=== PATIENT | male | born 1965 | race Caucasian/White ===

== ENCOUNTER 2016-12-16 06:22 | Inpatient (IN) | payer OTHER, MEDICARE ==
[2016-12-16] VITALS (8 sets, daily range): BP systolic 100–130; BP diastolic 51–68; PULSE 80–90; RESP 18–25; TEMP 96–100.7; O2SAT 91–98
[~2016-12-16] VITALS: Ht 175.3 cm; Wt 147.2 kg
[~2016-12-16 06:22] MED LIST: DULO20 PO; IPRAAER IN
[2016-12-16] MEDS ORDERED: DEPA250T2 PO (06:34)
[2016-12-16] MEDS ORDERED: sleep med (06:34)
--- NOTE | 2016-12-16 06:51 | PD ---
HPI Chief Complaint: Pain: Acute or Chronic Time Seen by Provider: 06:46 Travel History International Travel<30 days: No Contact w/Intl Traveler<30days: No Traveled to known affect area: No History of Present Illness HPI 51-year-old male presents to the emergency department from home by EMS transport for complaint of generalized weakness and scrotal pain and swelling extending to the perineum and buttock. Patient states it's been progressively worsening 2 days. Patient states he's had issues with scrotal cysts for several months. Patient denies being diabetic. Patient has history of COPD and PTSD. Patient states he's had subjective fever and chills. Patient was noted by EMS to be hypotensive with his systolic blood pressure in the 90's. Patient rates pain as severe. Patient has had some spontaneous drainage from the scrotum. Patient's had no difficulties with urination. Patient also complains of left lower quadrant abdominal pain. Pain intensity is described as 10 over 10 PFSH Past Medical History Narrative Medical Anxiety depression PTSD COPD; no surgery; positive tobacco use positive alcohol use; nursing notes reviewed Asthma: No Blood Disorders: No Bipolar Disorder: Yes Anxiety: Yes Depression: Yes Cancer: No Cardiovascular Problems: No COPD: Yes Diminished Hearing: No Endocrine: No Gastrointestinal Disorders: No Genitourinary: No Immune Disorder: No Implanted Vascular Access Dvce: No Musculoskeletal: No Neurologic: No Psychiatric: Yes (PTSD) Reproductive: No Respiratory: Yes (COPD) Renal Failure: No Tetanus Vaccination: < 5 Years Influenza Vaccination: No Past Surgical History Surgical History: No Previous Surgery AICD: No Arteriovenous Shunt: No Insulin Pump: No Joint Replacement: No Neurologic Surgery: No Pacemaker: No Other Surgery: No Social History Alcohol Use: Yes (couple 4 packs a week) Tobacco Use: Yes (1/2 ppd cigarettes) Substance Use: No Allergies-Medications (Allergen,Severity, Reaction): Coded Allergies: No Known Allergies (Verified , 12/16/15) Reported Meds & Prescriptions Reported Meds & Active Scripts Active Reported [sleep med] Depakote DR (Divalproex Sodium) 250 Mg Tabdr 250 Mg PO HS Review of Systems Except as stated in HPI: all other systems reviewed are Neg General / Constitutional: Positive: Fever, Chills HENT: No: Congestion Cardiovascular: No: Chest Pain or Discomfort Respiratory: No: Shortness of Breath Gastrointestinal: Positive: Nausea, Abdominal Pain Genitourinary: Positive: Other, No: Dysuria Musculoskeletal: No: Myalgias Skin: Positive Lumps, No Rash Neurologic: No: Weakness Psychiatric: No: Anxiety Hematologic/Lymphatic: No: Lymph Node Enlargement Physical Exam Narrative GENERAL: Well-developed morbidly obese male in obvious discomfort with blood pressure 100/55. SKIN: Warm and dry. HEAD: Normocephalic. EYES: No scleral icterus. No injection or drainage. NECK: Supple, trachea midline. No JVD or lymphadenopathy. CARDIOVASCULAR: Regular rate and rhythm without murmurs, gallops, or rubs. RESPIRATORY: Breath sounds equal bilaterally. No accessory muscle use. GASTROINTESTINAL: Abdomen soft, non-tender, nondistended. uncircumcised male with scrotal edema erythema tenderness in duration and draining superficial ulceration with induration and erythema extending to the perineum without black eschar or necrotic tissue no crepitus. MUSCULOSKELETAL: No cyanosis, or edema. BACK: Nontender without obvious deformity. No CVA tenderness. Data Data Last Documented VS Vital Signs Date Time Temp Pulse Resp B/P Pulse Ox O2 Delivery O2 Flow Rate FiO2 12/16/16 06:23 98.3 87 22 100/55 97 Orders Basic Metabolic Panel (Bmp) (12/16/16 06:51) Complete Blood Count With Diff (12/16/16 06:51) Blood Culture (12/16/16 06:51) Wound Culture And Gram Stain (12/16/16 06:51) Iv Access Insert/Monitor (12/16/16 06:51) Sodium Chlor 0.9% 1000 Ml Inj (Ns 1000 M (12/16/16 07:00) Vancomycin Inj (Vancomycin Inj) (12/16/16 07:00) Piperacil-Tazo 4.5 Gm Premix (Zosyn 4.5 (12/16/16 07:00) Metronidazole 500 Mg Inj (Flagyl 500 Mg (12/16/16 07:00) Ondansetron Inj (Zofran Inj) (12/16/16 07:00) Morphine Inj (Morphine Inj) (12/16/16 07:00) Valproic Acid (Depakene) (12/16/16 06:51) MDM Medical Decision Making Medical Screen Exam Complete: Yes Emergency Medical Condition: Yes Medical Record Reviewed: Yes Differential Diagnosis Scrotal cellulitis, abscess, necrotizing fasciitis, mass, diverticulitis Narrative Course IV access obtained specimens collected and sent for resulting blood cultures obtained lactic acid ordered patient administered vancomycin and Zosyn and Flagyl Depakote level obtained. Patient given 1 L of normal saline along with Zosyn 4 mg IV and 2 mg morphine sulfate Care and disposition signed over to oncpolo Lopez. Simi Cheema MD Dec 16, 2016 06:51
[2016-12-16] MEDS ORDERED: ONDANSETRON HCL 4 MG/2 ML VIAL IV PUSH ONE (07:00)
[2016-12-16] MEDS ORDERED: metroNIDAZOLE 500 MG INJ 100 ML IV ONE (07:00)
[2016-12-16] MEDS ORDERED: PIPERACIL-TAZO 4.5 GM PREMIX 100 ML IV ONE (07:00)
[2016-12-16] MEDS ORDERED: SODIUM CHLOR 0.9% 1000 ML INJ 1,000 ML IV ONE (07:00)
[2016-12-16] MEDS ORDERED: VANCOMYCIN INJ 1,250 MG in SODIUM CHLOR 0.9% 250 ML INJ 250 ML IV ONE (07:00)
[2016-12-16] MEDS ORDERED: MORPHINE SULFATE 4 MG/ML INJ IV PUSH ONE (07:00)
[2016-12-16 07:26] LABS: AUTOMATED NEUTROPHIL # 22.9 TH/MM3 (1.8-7.7); BASOPHIL # 0.1 TH/MM3 (0-0.2); BASOPHIL % 0.2 % (0.0-2.0); EOSINOPHIL % 0.1 % (0.0-4.0); HEMATOCRIT 39.6 % (39.0-51.0); HEMO FLAGS DIFF FINAL; LYMPH % 3.3 % (9.0-44.0); LYMPHOCYTE # 0.8 TH/MM3 (1.0-4.8); MEAN CORPUSCULAR HEMOGLOBIN 30.4 PG (27.0-34.0); MEAN CORPUSCULAR HGB CONC 33.4 % (32.0-36.0); NEUT % 88.4 % (16.0-70.0); PLATELET COUNT 185 TH/MM3 (150-450); RED BLOOD COUNT 4.35 MIL/MM3 (4.50-5.90); RED CELL DISTRIBUTION WIDTH 14.5 % (11.6-17.2); WHITE BLOOD COUNT 25.9 TH/MM3 (4.0-11.0)
[2016-12-16 08:39] LABS: BICARBONATE 27.4 MEQ/L (21.0-32.0); POTASSIUM 3.7 MEQ/L (3.5-5.1)
--- NOTE | 2016-12-16 10:16 | HHI.HP ---
HPI Service [facility] Primary Care Physician Unknown Admission Diagnosis Diagnoses: Chief Complaint: Scrotal pain Travel History International Travel<30 Days: No Contact w/Intl Traveler <30 Da: No Traveled to Known Affected Are: No History of Present Illness This is a 51-year-old male with history of COPD, PTSD, depression, no other significant comorbidities presenting with scrotal pain. In retrospect, the patient has had what he refers as cysts between his scrotum and his rectum/anal verge for the last 10 months. Sometimes there will be a discharge described as yellowish which she would express. He has never seen a doctor or taken any antibiotics for this. However in the last 2 days, he has noticed that the "cysts"are now in his scrotum associated with severe pain, 8/10, scrotal redness , swelling, subjective fever with chills and sweats. There is no scrotal discharge. Patient denies any urinary symptoms including dysuria, frequency, urgency, diarrhea, shortness of breath, cough, nausea, vomiting, chest pain. Review of Systems ROS Limitations: Other (ROS negative.) Past Family Social History Past Medical History Anxiety Depression PTSD COPD Alcohol abuse Tobacco abuse Past Surgical History None Reported Medications Depakote DR (Divalproex Sodium) 250 Mg Tabdr 250 Mg PO HS Allergies: Coded Allergies: No Known Allergies (Verified , 12/16/15) Family History Brother has DM Social History 8 4-pack weekly of beer, smokes 1/2 ppd 37 years Physical Exam Vital Signs Vital Signs Date Time Temp Pulse Resp B/P Pulse Ox O2 Delivery O2 Flow Rate FiO2 12/16/16 09:01 83 24 119/68 94 Room Air 12/16/16 07:51 25 12/16/16 07:25 99.5 83 25 100/62 95 Room Air 12/16/16 06:23 98.3 87 22 100/55 97 Physical Exam Not in distress, morbidly obese. PERRL, pink conjunctiva without injection, anicteric Nose without bleeding, airway patent, oropharynx clear Supple neck, no masses or thyromegaly, trachea midline Normal rate and regular rhythm, no murmurs gallops or rubs appreciated. Decreased breath sounds due to body habitus. Normal bowel sounds, soft, obese, non-tender, nondistended, no guarding. : Scrotum is enlarged, about 4 times normal size, very swollen, with redness, very tender, no crepitations, palpable multiple doughy induration which are very tender, no fluctuance, no open wound or drainage. Extremities without clubbing, cyanosis, or edema. No rash of generalized distribution. Skin is warm and dry. AAO x3, no cranial nerve deficits, moves all 4 extremities, no focal neurologic deficits Normal mood, appropriate affect Laboratory Laboratory Tests Test 12/16/16 12/16/16 12/16/16 07:00 07:10 08:05 White Blood Count 25.9 Red Blood Count 4.35 Hemoglobin 13.2 Hematocrit 39.6 Mean Corpuscular Volume 91.0 Mean Corpuscular Hemoglobin 30.4 Mean Corpuscular Hemoglobin 33.4 Concent Red Cell Distribution Width 14.5 Platelet Count 185 Mean Platelet Volume 9.8 Neutrophils (%) (Auto) 88.4 Lymphocytes (%) (Auto) 3.3 Monocytes (%) (Auto) 8.0 Eosinophils (%) (Auto) 0.1 Basophils (%) (Auto) 0.2 Neutrophils # (Auto) 22.9 Lymphocytes # (Auto) 0.8 Monocytes # (Auto) 2.1 Eosinophils # (Auto) 0.0 Basophils # (Auto) 0.1 CBC Comment DIFF FINAL Differential Comment Lactic Acid Level 1.9 Sodium Level 141 Potassium Level 3.7 Chloride Level 108 Carbon Dioxide Level 27.4 Anion Gap 6 Blood Urea Nitrogen 12 Creatinine 1.06 Estimat Glomerular Filtration 74 Rate Random Glucose 85 Calcium Level 7.9 Valproic Acid (Depakene) Level 91 Date/Time Procedure Status Source Growth 12/16/16 07:05 Aerobic Blood Culture Received Blood Peripheral Pending 12/16/16 07:05 Anaerobic Blood Culture Received Blood Peripheral Pending Result Diagram: 12/16/16 0700 12/16/16 0805 Assessment and Plan Problem List: (1) COPD (chronic obstructive pulmonary disease) ICD Code: J44.9 Status: Chronic (2) Morbid obesity ICD Code: E66.01 Status: Chronic (3) Tobacco abuse ICD Code: Z72.0 Status: Chronic (4) Cellulitis of scrotum ICD Code: N49.2 Status: Acute Assessment and Plan This is a 51-year-old male presenting with scrotal pain and swelling with history of perineal abscesses Sepsis secondary to Scrotal cellulitis rule out abscess - sepsis based on fever and high-grade leukocytosis. Scrotum definite looks like infected, i.e. cellulitis, possibly with abscess based on palpation. No signs of systemic toxicity or Burt's gangrene. Check ultrasound of the scrotum, patient does not have any abdominal pain or urinary symptoms. Depending on the ultrasound results, might need urological consult for drainage. We'll start with vancomycin and Unasyn, pain control with Percocet and morphine intravenously as needed with bowel regimen. Start normal saline for volume resuscitation with mild hypotension. Blood culture drawn, follow-up results and no other obvious source of infection. Check hemoglobin A1c, urinalysis. Recheck CBC and BMP. Scrotal elevation. PTSD, depression-continue Depakote Tobacco abuse-counseled, start nicotine patch COPD-not in exacerbation, DuoNeb's as needed. DVT prophylaxis: Lovenox Code Status Full code Discussed Condition With Patient and RN Physician Certification 2 Midnight Certification Type: Admission for Inpatient Services Order for Inpatient Services The services are ordered in accordance with Medicare regulations or non- Medicare payer requirements, as applicable. In the case of services not specified as inpatient-only, they are appropriately provided as inpatient services in accordance with the 2-midnight benchmark. Estimated LOS (days): 2 days is the estimated time the patient will need to remain in the hospital, assuming treatment plan goals are met and no additional complications. Post-Hospital Plan: Home Liliana Veliz MD Dec 16, 2016 10:16
[2016-12-16] MEDS ORDERED: Vancomycin Consult Pharmacy 1 EA OTHER PRN (11:15)
[2016-12-16] MEDS ORDERED: MORPHINE SULFATE 4 MG/ML INJ IV PRN (11:15)
[2016-12-16] MEDS ORDERED: MAGNESIUM HYDROXIDE SUSP 30 ML CUP PO PRN (11:15)
[2016-12-16] MEDS ORDERED: RESP: ALBUTEROL 2.5 MG/IPRATROPIUM 0.5 MG NEB (PRN) NEB (11:15)
[2016-12-16] MEDS ORDERED: NALOXONE HCL 0.4 MG/ML AMP IV PRN (11:15)
[2016-12-16 11:29] LABS: BLOOD, URINE TRACE (NEG); GLUCOSE,URINE NEG (NEG); HYALINE CAST, URINE 5 /lpf (RARE); KETONE, URINE 10 mg/dL (NEG); MUCUS URINE FEW /lpf (OCC); NITRITE,URINE NEG (NEG); SQUAMOUS EPITHELIAL CELL URINE <1 /hpf (0-5); TRANSITIONAL EPI CELLS, URINE <1 /hpf; URINE COLOR YELLOW (YELLW/STRAW)
[2016-12-16 11:30] LABS: COMMENT (UR) CULT NOT INDICATED; CULTURE IF INDICATED CULT NOT INDICATED
--- NOTE | 2016-12-16 11:41 | PD ---
Data Data Last Documented VS Vital Signs Date Time Temp Pulse Resp B/P Pulse Ox O2 Delivery O2 Flow Rate FiO2 12/16/16 09:01 83 24 119/68 94 Room Air 12/16/16 07:25 99.5 Orders Basic Metabolic Panel (Bmp) (12/16/16 06:51) Complete Blood Count With Diff (12/16/16 06:51) Blood Culture (12/16/16 06:51) Wound Culture And Gram Stain (12/16/16 06:51) Iv Access Insert/Monitor (12/16/16 06:51) Sodium Chlor 0.9% 1000 Ml Inj (Ns 1000 M (12/16/16 07:00) Vancomycin Inj (Vancomycin Inj) (12/16/16 07:00) Piperacil-Tazo 4.5 Gm Premix (Zosyn 4.5 (12/16/16 07:00) Metronidazole 500 Mg Inj (Flagyl 500 Mg (12/16/16 07:00) Ondansetron Inj (Zofran Inj) (12/16/16 07:00) Morphine Inj (Morphine Inj) (12/16/16 07:00) Valproic Acid (Depakene) (12/16/16 06:51) Lactic Acid Sepsis Protocol (12/16/16 07:42) Admit To Inpatient (12/16/16 10:16) Code Status (12/16/16 10:16) Vital Signs (Adult) Q4H (12/16/16 10:16) Activity Bed Rest With Brp (12/16/16 10:16) [employer] Sales Representative / Telemetry .CONTINUOUS (12/16/16 10:16) Intake + Output SANGEETA.QSHIFT (12/16/16 10:16) Diet Regular Basic (12/16/16 Lunch) Basic Metabolic Panel (Bmp) (12/17/16 06:00) Complete Blood Count With Diff (12/17/16 06:00) Creatine Kinase (Cpk) (12/16/16 10:16) Urinalysis - C+S If Indicated (12/16/16 10:16) Scd Bilateral/Knee High SANGEETA.QSHIFT (12/16/16 10:16) Admit Order (Ed Use Only) (12/16/16 11:08) Vancomycin Consult Pharmacy (Vancomycin (12/16/16 11:15) Vancomycin Inj (Vancomycin Inj) (12/16/16 11:15) Acetaminophen (Tylenol) (12/16/16 11:15) Oxycodone (Roxicodone) (12/16/16 11:15) Oxycodone-Acetamin 5-325 Mg (Percocet (12/16/16 11:15) Morphine Inj (Morphine Inj) (12/16/16 11:15) Naloxone Inj (Narcan Inj) (12/16/16 11:15) Magnesium Hydroxide Liq (Milk Of Magnesi (12/16/16 11:15) Sennosides (Senokot) (12/16/16 11:15) ^ Scrotal Support (12/16/16 11:06) Us Testicles W Doppler (12/16/16 ) Sodium Chlor 0.9% 1000 Ml Inj (Ns 1000 M (12/16/16 11:15) Hemoglobin (Hgb) A1c (12/16/16 11:06) Labs Laboratory Tests Test 12/16/16 12/16/16 12/16/16 12/16/16 07:00 07:10 08:05 11:00 White Blood Count 25.9 TH/MM3 Red Blood Count 4.35 MIL/MM3 Hemoglobin 13.2 GM/DL Hematocrit 39.6 % Mean Corpuscular Volume 91.0 FL Mean Corpuscular Hemoglobin 30.4 PG Mean Corpuscular Hemoglobin 33.4 % Concent Red Cell Distribution Width 14.5 % Platelet Count 185 TH/MM3 Mean Platelet Volume 9.8 FL Neutrophils (%) (Auto) 88.4 % Lymphocytes (%) (Auto) 3.3 % Monocytes (%) (Auto) 8.0 % Eosinophils (%) (Auto) 0.1 % Basophils (%) (Auto) 0.2 % Neutrophils # (Auto) 22.9 TH/MM3 Lymphocytes # (Auto) 0.8 TH/MM3 Monocytes # (Auto) 2.1 TH/MM3 Eosinophils # (Auto) 0.0 TH/MM3 Basophils # (Auto) 0.1 TH/MM3 CBC Comment DIFF FINAL Differential Comment Lactic Acid Level 1.9 mmol/L Sodium Level 141 MEQ/L Potassium Level 3.7 MEQ/L Chloride Level 108 MEQ/L Carbon Dioxide Level 27.4 MEQ/L Anion Gap 6 MEQ/L Blood Urea Nitrogen 12 MG/DL Creatinine 1.06 MG/DL Estimat Glomerular Filtration 74 ML/MIN Rate Random Glucose 85 MG/DL Calcium Level 7.9 MG/DL Valproic Acid (Depakene) Level 91 MCG/ML Urine Color YELLOW Urine Turbidity HAZY Urine pH 6.0 Urine Specific [place] 1.039 Urine Protein 30 mg/dL Urine Glucose (UA) NEG mg/dL Urine Ketones 10 mg/dL Urine Occult Blood TRACE Urine Nitrite NEG Urine Bilirubin NEG Urine Urobilinogen 2.0 MG/DL Urine Leukocyte Esterase SMALL Urine RBC 3 /hpf Urine WBC 7 /hpf Urine Squamous Epithelial <1 /hpf Cells Urine Transitional Epithelial <1 /hpf Cells Urine Amorphous Sediment RARE Urine Hyaline Casts 5 /lpf Urine Mucus FEW /lpf Microscopic Urinalysis Comment CULT NOT INDICATED MDM Supervised Visit with [facility]: No Narrative Course This case is checked out to me by Dr. Cheeam. She did not feel this represented Fourniers gangrene or anything necrotizing. I have reviewed the entirety of the workup. He has significant leukocytosis of 25,000 but normal lactate and no fever. Other lab studies are reasonably normal He is a morbidly obese man with a scrotal cellulitis. I reviewed the case in detail with hospitalist will admit for IV antibiotics. He is going to order an ultrasound of the scrotum as well. Diagnosis Primary Impression: Cellulitis of scrotum Admitting Information Admitting Physician Requests: Admit Oh Lopez MD Dec 16, 2016 11:41
[2016-12-16] MEDS ORDERED: VANCOMYCIN INJ 1,000 MG in SODIUM CHLOR 0.9% 250 ML INJ 250 ML IV SCH (12:00)
[2016-12-16] MEDS: oxyCODONE/ACETAMINOPHEN 5 MG/325 MG TAB PO PRN (12:18)
[2016-12-16] MEDS: SODIUM CHLOR 0.9% 1000 ML INJ 1,000 ML IV SCH ×2 (12:18→20:41)
[2016-12-16] MEDS: ENOXAPARIN SODIUM 40 MG/0.4 ML SYRINGE SQ SCH (12:18)
[2016-12-16] MEDS: SENNOSIDES 8.6 MG TAB PO SCH ×2 (12:19→12:21)
[2016-12-16] MEDS: AMPICILLIN-SULBACTAM INJ 1,500 MG in SODIUM CHLORIDE 0.9% INJ 100 ML IV SCH ×2 (12:19→16:45)
--- NOTE | 2016-12-16 12:55 | RADRPT ---
EXAM DATE/TIME: 12/16/2016 11:53 [facility] COMPARISON: No previous studies available for comparison. INDICATIONS : Testicular pain. MEDICAL HISTORY : COPD. Dyspnea. PTSD. Bipolar disorder. Depression. Anxiety. Substance use. SURGICAL HISTORY : Carpel tunnel release. ENCOUNTER: Initial ACUITY: 2 days PAIN SCORE: 8/10 LOCATION: Bilateral scrotum. MEASUREMENTS: RIGHT TESTICLE: 3.4 x 2.5 x 2.1cm LEFT TESTICLE: 3.4 x 3.1 x 2.6cm FINDINGS: There is positive blood flow to both testicles. There is some complex fluid measuring up to 2.6 cm th at is contiguous with the lower portion of left testicle. No suspicious testicular masses are present . There is extensive edematous changes in the scrotum around the testicles. There is a 7 mm x 5 mm no dule in the left epididymis. Small bilateral varicoceles. No significant hydrocele. CONCLUSION: 1. Extensive scrotal wall thickening and edema. 2. Positive testicular blood flow bilaterally without suspicious solid testicular mass. 3. Complex fluid contiguous with the inferior portion of the left testicle measures 2.6 cm in diamete r. Small left-sided epididymal nodule. Small varicoceles bilaterally. Irving Payne MD on December 16, 2016 at 12:49 Board Certified Radiologist. This report was verified electronically.
[2016-12-16 13:22] LABS: HEMOGLOBIN A1a 1.6 %; HEMOGLOBIN Ao 83.9 %; HEMOGLOBIN LA1C 1.9 %; HEMOGLOBIN P3 4.1 %
[2016-12-16] MEDS: RESP: ALBUTEROL 2.5 MG/IPRATROPIUM 0.5 MG NEB (SCH) NEB (19:35)
[2016-12-16] MEDS: ACETAMINOPHEN 325 MG TAB PO PRN (20:40)
[2016-12-16] MEDS: VANCOMYCIN INJ 2,250 MG in SODIUM CHLORID 0.9% 500 ML INJ 500 ML IV SCH (20:41)
[2016-12-16] MEDS: DIVALPROEX SODIUM DELAYED RELEASE 250 MG TAB PO SCH (20:41)
[2016-12-17] VITALS: BP 100/59; PULSE 86; RESP 19; TEMP 100.7; O2SAT 93
[2016-12-17] MEDS: AMPICILLIN-SULBACTAM INJ 1,500 MG in SODIUM CHLORIDE 0.9% INJ 100 ML IV SCH ×5 (00:20→23:59)
[2016-12-17] MEDS ORDERED: IBUPROFEN 600 MG TAB PO ONE (00:45)
[2016-12-17] MEDS: FAMOTIDINE 20 MG TAB PO SCH ×3 (01:14→20:22)
[2016-12-17 04:00] VITALS: BP 102/57; PULSE 67; RESP 19; TEMP 98; O2SAT 94
[2016-12-17 05:59] LABS: HEMATOCRIT 36.1 % (39.0-51.0); MEAN CELL VOLUME 90.7 FL (80.0-100.0); MEAN CORPUSCULAR HEMOGLOBIN 30.6 PG (27.0-34.0); MEAN CORPUSCULAR HGB CONC 33.7 % (32.0-36.0); PLATELET COUNT 179 TH/MM3 (150-450); RED BLOOD COUNT 3.98 MIL/MM3 (4.50-5.90); RED CELL DISTRIBUTION WIDTH 14.7 % (11.6-17.2); WHITE BLOOD COUNT 26.7 TH/MM3 (4.0-11.0)
[2016-12-17 06:02] LABS: HEMO FLAGS AUTO DIFF
[2016-12-17 06:24] LABS: POTASSIUM 3.6 MEQ/L (3.5-5.1)
[2016-12-17 06:25] LABS: BICARBONATE 22.7 MEQ/L (21.0-32.0)
[2016-12-17 06:52] LABS: BANDS 9 % (0-6); METAMYELOCYTES 3 % (0-1); NEUTROPHIL # MANUAL DIFF 24.6 TH/MM3 (1.8-7.7); POLYS (SEG NEUTROPHILS) 80 % (16-70); WBC DIFF SAMPLE 100
[2016-12-17 06:53] LABS: SCAN/DIFF FINAL DIFF MANUAL
[2016-12-17] MEDS: RESP: ALBUTEROL 2.5 MG/IPRATROPIUM 0.5 MG NEB (SCH) NEB ×2 (07:42→20:00)
--- NOTE | 2016-12-17 07:58 | MB ---
cc: RONI WELLS MD DATE OF CONSULTATION 12/16/2016 REASON FOR CONSULTATION 1. Scrotal cellulitis. 2. Scrotal swelling. HISTORY OF PRESENT ILLNESS The patient is a 51-year-old male who presents with a 2-day history of scrotal pain and swelling. He denies dysuria, fevers, chills, nausea, vomiting or hematuria. He said he has over the past 10 months noticed cyst between his scrotum and rectum but recently found a cyst on his scrotum. He describes the pain as sharp and stabbing and it is worse. He also noticed some redness in the area. Denies any discharge from his scrotum. Denies prior episodes. Denies history of sexually transmitted disease. He denies diabetes, history of kidney stones or urinary tract infections. REVIEW OF SYSTEMS See HPI, otherwise all systems reviewed are otherwise negative. PAST HISTORY 1. Anxiety, depression. 2. PTSD. 3. COPD. 4. Alcohol abuse. 5. Tobacco abuse. PAST SURGICAL HISTORY None. REPORTED MEDICATIONS Depakote 250 mg p.o. q. H.s. ALLERGIES No known drug allergies. FAMILY HISTORY Denies urolithiasis or genitourinary malignancies. SOCIAL HISTORY Smokes half-pack per day for the last 37 years. 8/4 pack weekly of beer. Denies illicit drugs. PHYSICAL EXAMINATION VITAL SIGNS: Temperature 100.6, pulse 80, respiratory 22, BP 114/53, sating 95% on room air. GENERAL: He is alert and oriented x 3. In no apparent distress, cooperative gentleman. Appears his stated age. HEAD: Normocephalic, atraumatic. NECK: Supple. Trachea is midline. No JVD. SKIN: No ulcers or rashes visible. The mucous membranes are pink and moist. LUNGS: Nonlabored respirations. No wheezes, rales or rhonchi. HEART: Regular rate and rhythm. No murmurs, gallops or rubs. ABDOMEN: Obese but soft, nontender, nondistended. Positive bowel sounds. GENITOURINARY EXAMINATION: His penis is edematous. Glans not visible due to edematous foreskin. Scrotum - 2+ edema which is soft, slightly indurated, slightly erythematous but no crepitus or fluctuance noted. No evidence of any visible draining areas. Testes not palpable. EXTREMITIES: Nontender. No clubbing or cyanosis. 1+ bilateral pitting edema. PSYCH: Normal affect. NEUROLOGICAL: Cranial nerves II-XII intact. Strength 5/5 in all four extremities. LABS White count of 25.9, hemoglobin 13.2, hematocrit 39.6, platelet count 185. Sodium 141, potassium 3.7, chloride 108, bicarb 27.4, creatinine 1.06, BUN 12. His urine showed trace blood, small leukocyte esterase. IMAGING STUDIES His scrotal ultrasound images were reviewed. Agree with the radiologist's report. There is no evidence of a fluid collection. There is some fluid on the inferior portion of the left testicle with good blood flow to both testicles with extensive scrotal wall thickening and edema. ASSESSMENT AND PLAN The patient is a 51-year-old male admitted with scrotal pain and appears to have scrotal cellulitis. PLAN Recommend continued IV antibiotics for now. He is currently on vancomycin and Unasyn. We will follow his white count appropriately. If he is not improve in the next 24-48 hours, then recommend repeating the scrotal ultrasound to see if there is progression of a possible abscess. Otherwise hopefully IV antibiotics will help treat the scrotal cellulitis. Thank you for this consult. Roni Wells MD EMDavy/NIKI /6:31 PM /7:43 AM
[2016-12-17 08:00] VITALS: BP 110/54; PULSE 68; RESP 20; TEMP 96.8; O2SAT 96
--- NOTE | 2016-12-17 10:58 | HHI.PR ---
Subjective Remarks Follow-up sepsis/scrotal cellulitis and now bacteremia 12/17/16-patient seen and examined, still spiking fever and complains of scrotal pain. Blood culture positive for gram-negative rods and gram positive cocci Objective Vitals Vital Signs Date Time Temp Pulse Resp B/P Pulse Ox O2 Delivery O2 Flow Rate FiO2 12/17/16 08:00 96.8 68 20 110/54 96 12/17/16 04:00 98.0 67 19 102/57 94 12/17/16 00:00 100.7 86 19 100/59 93 12/16/16 20:00 100.7 90 20 109/53 91 12/16/16 16:31 100.6 80 22 114/53 95 12/16/16 16:31 100.6 80 22 114/53 95 12/16/16 13:52 96.0 82 24 122/51 93 12/16/16 12:59 86 20 130/60 96 12/16/16 11:47 81 18 98 Room Air I/O 12/16/16 12/16/16 12/16/16 12/17/16 12/17/16 12/17/16 07:00 15:00 23:00 07:00 15:00 23:00 Intake Total 120 ml 1218 ml 1084 ml Balance 120 ml 1218 ml 1084 ml Intake Oral 120 ml 240 ml 240 ml IV Total 978 ml 844 ml # Voids 2 2 # Bowel Movements 0 0 Result Diagram: 12/17/16 0547 12/17/16 0547 Imaging Last Impressions Scrotum Ultrasound 12/16/16 0000 Signed Impressions: Service Date/Time: Friday, December 16, 2016 11:53 - CONCLUSION: 1. Extensive scrotal wall thickening and edema. 2. Positive testicular blood flow bilaterally without suspicious solid testicular mass. 3. Complex fluid contiguous with the inferior portion of the left testicle measures 2.6 cm in diameter. Small left-sided epididymal nodule. Small varicoceles bilaterally. Irving Payne MD Objective Remarks GENERAL: NAD SKIN: Warm and dry. HEAD: Normocephalic. EYES: No scleral icterus. No injection or drainage. NECK: Supple, trachea midline. No JVD or lymphadenopathy. CARDIOVASCULAR: Regular rate and rhythm without murmurs, gallops, or rubs. RESPIRATORY: Breath sounds equal bilaterally. No accessory muscle use. GASTROINTESTINAL: Abdomen soft, non-tender, nondistended. MUSCULOSKELETAL: No cyanosis, or edema. : scrotal erythema, swelling BACK: Nontender without obvious deformity. No CVA tenderness. A/P Problem List: (1) Bacteremia due to Gram-positive bacteria ICD Code: R78.81 Status: Acute (2) Bacteremia due to Gram-negative bacteria ICD Code: R78.81 Status: Acute (3) Sepsis affecting skin ICD Code: A41.9 Status: Acute (4) Cellulitis of scrotum ICD Code: N49.2 Status: Acute (5) COPD (chronic obstructive pulmonary disease) ICD Code: J44.9 Status: Chronic (6) Morbid obesity ICD Code: E66.01 Status: Chronic (7) Tobacco abuse ICD Code: Z72.0 Status: Chronic Assessment and Plan 51-year-old man with Bacteremia due to gram-positive cocci and gram-negative dangelo Repeat blood culture Consult infectious disease specialist Continue with IV vancomycin and Unasyn Sepsis :2/2 scrotal cellulitis Currently on IV vancomycin and Unasyn Infectious disease specialist consultation pending Monitor culture report Scrotal cellulitis Appreciate input from urology Repeat scrotal ultrasound if no improvement in 24-48 hours Currently on IV antibiotics, parenteral pain medications Elevate scrotum Leukocytosis From above infectious processes Continue with therapy Monitor CBC PTSD, depression- continue Depakote Tobacco abuse-counseled, Continue nicotine patch COPD-not in exacerbation, DuoNeb's as needed. DVT prophylaxis: Emir Spears MD Dec 17, 2016 10:58
[2016-12-17] MEDS ORDERED: TEMAZEPAM 15 MG CAP PO PRN (11:00)
[2016-12-17] MEDS ORDERED: ONDANSETRON HCL 4 MG/2 ML VIAL IV PRN (11:00)
[2016-12-17] MEDS ORDERED: DOCUSATE SODIUM 50 MG/SENNA 8.6 MG TAB PO PRN (11:00)
[2016-12-17] MEDS: SENNOSIDES 8.6 MG TAB PO SCH ×3 (11:40→23:59)
[2016-12-17] MEDS: ENOXAPARIN SODIUM 40 MG/0.4 ML SYRINGE SQ SCH (11:41)
[2016-12-17 12:00] VITALS: BP 117/59; PULSE 71; RESP 21; TEMP 98.5; O2SAT 95
--- NOTE | 2016-12-17 15:06 | MB ---
cc: AUSTIN BHAT MD, ERIC DATE OF CONSULTATION: 12/17/[address] Andrews REASON FOR CONSULTATION A 51-year-old man admitted with scrotal cellulitis and now with bacteremia. Please evaluate and advise on therapy. HISTORY OF PRESENT ILLNESS This is a 51-year-old white male who presented to the emergency department with pain and swelling of the scrotum. The patient was evaluated in the emergency department on . He described pain of 10/10 in the scrotum. He also noted that he was having fever and chills. The patient states that he had an area of swelling at the scrotum between the scrotum and penis and he would squeeze it and some clear liquid would come out. He states that was present for approximately 4 months. He states that he was embarrassed to go to the medical doctor for a check-up for that problem. He was evaluated in the emergency department and he was afebrile. An ultrasound of the scrotum was performed and it showed extensive scrotal wall thickening and edema. Complex fluid contiguous with the inferior portion of the left testicle measuring 2.6 cm in diameter was noted. The patient was evaluated by urology and he was started on IV antibiotics. The urologist's recommendation was to follow the patient on IV antibiotics for the next 24-48 hours. Cultures were taken on admission and all four bottles have bacteria. One set has gram-positive cocci in both bottles and another set has gram-negative dangelo and gram-positive cocci. The patient is in no acute distress. His white count was 25.9 on presentation. This consultation is requested for infection management. PAST MEDICAL HISTORY 1. COPD. 2. Post-traumatic stress disorder. 3. Anxiety. ALLERGIES No known drug allergies. MEDICATIONS 1. Vancomycin. 2. Ampicillin/sulbactam. 3. Lovenox. 4. Senokot. 5. Percocet 5, p.r.n. SOCIAL HISTORY The patient smokes a pack of cigarettes a day. Positive alcohol in the form of beer. No illicit drugs. FAMILY HISTORY One brother has diabetes mellitus. REVIEW OF SYSTEMS CONSTITUTIONAL: Significant for fever and chills. HEAD, EYES, EARS, NOSE, AND THROAT: No visual blurring or diplopia. No difficulty swallowing. No soreness of the throat. NECK: No neck pain or swelling. CARDIOVASCULAR: No palpitation or chest pain. RESPIRATORY: No cough. Denies shortness of breath. GASTROINTESTINAL: Denies nausea, vomiting, abdominal pain or diarrhea. GENITOURINARY: Denies urgency, frequency or dysuria. Pain and swelling of the scrotum. HEMATOPOIETIC: No easy bruising or bleeding. INTEGUMENTARY: No skin rash or itching. ENDOCRINE: No polyuria or polydipsia. NEUROLOGIC: No problems with coordination or gait disturbance. PSYCHIATRIC: Significant for depression. PHYSICAL EXAMINATION GENERAL: This is a morbidly obese male who is in no acute distress. The patient appears to have some labored respirations. VITAL SIGNS: Temperature 98.5, BP 117/59, respirations 21, heart rate 79. T-max 100.7 earlier today. HEENT: Extraocular movements grossly intact, pupils reactive to light. No icterus. Oropharynx has no visible lesions. NECK: Supple without adenopathy. LUNGS: Diminished breath sounds throughout. HEART: Regular rate and rhythm without murmurs, rubs or gallops. ABDOMEN: Bowel sounds present. Obese. Soft. No tenderness appreciated. : Marked scrotal swelling. The scrotum is about the size of a large grapefruit. It is erythematous, tender and warm. There is a tiny superficial ulcerated area approximately 1 mm to 2 mm in circumference at the wall of the scrotum. RECTAL: Not performed. EXTREMITIES: No clubbing, cyanosis or edema. SKIN: No rash. NEUROLOGIC: No gross focal findings. LABORATORY WBC 26.7, platelets 179, 80% neutrophils, 9% bands, 5% lymphocytes, hemoglobin 12.2. Creatinine 0.8, BUN 17, sodium 138. IMPRESSION 1. Bacteremia. 2. Scrotal cellulitis. 3. Leukocytosis secondary to infection. RECOMMENDATIONS 1. Continue vancomycin. 2. Continue ampicillin/sulbactam. 3. Monitor blood culture and sensitivity and identity. 4. Monitor white blood cell count. 5. Follow-up recommendation by urology for need of surgical intervention. 6. Monitor clinical response to antibiotic treatment. Thank you this consultation. The patient's progress will be monitored and further recommendations will be given on follow-up if necessary. Austin Bhat MD FD/KIRIT /2:36 PM /2:55 PM
[2016-12-17 16:00] VITALS: BP 133/63; PULSE 84; RESP 24; TEMP 98; O2SAT 97
[2016-12-17 20:13] VITALS: BP 158/77; PULSE 84; RESP 21; TEMP 99.9; O2SAT 94
[2016-12-17] MEDS: VANCOMYCIN INJ 2,250 MG in SODIUM CHLORID 0.9% 500 ML INJ 500 ML IV SCH (20:21)
[2016-12-17] MEDS: DIVALPROEX SODIUM DELAYED RELEASE 250 MG TAB PO SCH (20:22)
[2016-12-18 00:14] VITALS: BP 132/60; PULSE 89; RESP 20; TEMP 97.5; O2SAT 96
[2016-12-18] MEDS: AMPICILLIN-SULBACTAM INJ 1,500 MG in SODIUM CHLORIDE 0.9% INJ 100 ML IV SCH ×2 (05:03→11:16)
[2016-12-18 05:04] LABS: AUTOMATED NEUTROPHIL # 21.9 TH/MM3 (1.8-7.7); BASOPHIL # 0.1 TH/MM3 (0-0.2); BASOPHIL % 0.2 % (0.0-2.0); HEMATOCRIT 34.8 % (39.0-51.0); HEMO FLAGS DIFF FINAL; LYMPH % 5.9 % (9.0-44.0); LYMPHOCYTE # 1.5 TH/MM3 (1.0-4.8); MEAN CORPUSCULAR HEMOGLOBIN 29.6 PG (27.0-34.0); MEAN CORPUSCULAR HGB CONC 32.5 % (32.0-36.0); MONO % 7.6 % (0.0-8.0); NEUT % 86.3 % (16.0-70.0); PLATELET COUNT 151 TH/MM3 (150-450); RED BLOOD COUNT 3.83 MIL/MM3 (4.50-5.90); RED CELL DISTRIBUTION WIDTH 14.7 % (11.6-17.2); WHITE BLOOD COUNT 25.4 TH/MM3 (4.0-11.0)
[2016-12-18] MEDS: ACETAMINOPHEN 325 MG TAB PO PRN (07:59)
[2016-12-18 08:00] VITALS: BP 115/55; PULSE 80; RESP 19; TEMP 102; O2SAT 93
[2016-12-18] MEDS: RESP: ALBUTEROL 2.5 MG/IPRATROPIUM 0.5 MG NEB (SCH) NEB ×2 (08:00→19:26)
[2016-12-18] MEDS: FAMOTIDINE 20 MG TAB PO SCH ×2 (08:00→19:47)
[2016-12-18 09:40] VITALS: TEMP 99
--- NOTE | 2016-12-18 10:08 | HHI.PR ---
Subjective Remarks Follow-up sepsis/scrotal cellulitis and now bacteremia 12/17/16-patient seen and examined, still spiking fever and complains of scrotal pain. Blood culture positive for gram-negative rods and gram positive cocci 12/18/16-patient seen and examined, Tmax 102 maternal and reports some improvement of scrotal pain. Repeat blood culture negative to date Objective Vitals Vital Signs Date Time Temp Pulse Resp B/P Pulse Ox O2 Delivery O2 Flow Rate FiO2 12/18/16 08:00 102.0 80 19 115/55 93 12/18/16 00:14 97.5 89 20 132/60 96 12/17/16 20:13 99.9 84 21 158/77 94 12/17/16 16:00 98.0 84 24 133/63 97 12/17/16 12:00 98.5 71 21 117/59 95 I/O 12/17/16 12/17/16 12/17/16 12/18/16 12/18/16 12/18/16 07:00 15:00 23:00 07:00 15:00 23:00 Intake Total 1084 ml 860 ml 380 ml Output Total 400 ml Balance 1084 ml 460 ml 380 ml Intake Oral 240 ml 860 ml 380 ml IV Total 844 ml Output Urine Total 400 ml # Voids 2 2 # Bowel Movements 0 Result Diagram: 12/18/16 0435 12/17/16 0547 Imaging Last Impressions Scrotum Ultrasound 12/16/16 0000 Signed Impressions: Service Date/Time: Friday, December 16, 2016 11:53 - CONCLUSION: 1. Extensive scrotal wall thickening and edema. 2. Positive testicular blood flow bilaterally without suspicious solid testicular mass. 3. Complex fluid contiguous with the inferior portion of the left testicle measures 2.6 cm in diameter. Small left-sided epididymal nodule. Small varicoceles bilaterally. Irving Payne MD Objective Remarks GENERAL: NAD SKIN: Warm and dry. HEAD: Normocephalic. EYES: No scleral icterus. No injection or drainage. NECK: Supple, trachea midline. No JVD or lymphadenopathy. CARDIOVASCULAR: Regular rate and rhythm without murmurs, gallops, or rubs. RESPIRATORY: Breath sounds equal bilaterally. No accessory muscle use. GASTROINTESTINAL: Abdomen soft, non-tender, nondistended. MUSCULOSKELETAL: No cyanosis, or edema. : scrotal erythema, swelling BACK: Nontender without obvious deformity. No CVA tenderness. A/P Problem List: (1) Bacteremia due to Gram-positive bacteria ICD Code: R78.81 Status: Acute (2) Bacteremia due to Gram-negative bacteria ICD Code: R78.81 Status: Acute (3) Sepsis affecting skin ICD Code: A41.9 Status: Acute (4) Cellulitis of scrotum ICD Code: N49.2 Status: Acute (5) COPD (chronic obstructive pulmonary disease) ICD Code: J44.9 Status: Chronic (6) Morbid obesity ICD Code: E66.01 Status: Chronic (7) Tobacco abuse ICD Code: Z72.0 Status: Chronic Assessment and Plan 51-year-old man with Bacteremia due to gram-positive cocci and gram-negative dangelo Repeat blood culture NTD Appreciate input from infectious disease specialist Continue with IV vancomycin and Unasyn Sepsis :2/2 scrotal cellulitis Currently on IV vancomycin and Unasyn Infectious disease specialist input appreciated Monitor culture report Scrotal cellulitis Appreciate input from urology Repeat scrotal ultrasound if no improvement in 24 hours Currently on IV antibiotics, parenteral pain medications Elevate scrotum Leukocytosis From above infectious processes Continue with therapy Monitor CBC PTSD, depression- continue Depakote Tobacco abuse-counseled, Continue nicotine patch COPD-not in exacerbation, DuoNeb's as needed. DVT prophylaxis: Emir Spears MD Dec 18, 2016 10:08
[2016-12-18] MEDS: SENNOSIDES 8.6 MG TAB PO SCH ×2 (11:16→23:25)
[2016-12-18 12:00] VITALS: BP 131/87; PULSE 87; RESP 18; TEMP 98.1; O2SAT 98
--- NOTE | 2016-12-18 13:00 | HHI.IDPN ---
Note Infectious Disease Note Patient feels no better. Notes pain in scrotum. Has flat affect. Denies chills. Afebrile. PAST MEDICAL HISTORY 1. COPD. 2. Post-traumatic stress disorder. 3. Anxiety. ALLERGIES No known drug allergies. ANTIBIOTICS: 1. Vancomycin. 2. Ampicillin/sulbactam. SOCIAL HISTORY The patient smokes a pack of cigarettes a day. Positive alcohol in the form of beer. No illicit drugs. FAMILY HISTORY One brother has diabetes mellitus. OBJECTIVE: Vital Signs Date Time Temp Pulse Resp B/P Pulse Ox O2 Delivery O2 Flow Rate FiO2 12/18/16 12:00 98.1 87 18 131/87 98 12/18/16 09:40 99.0 12/18/16 08:00 102.0 80 19 115/55 93 12/18/16 00:14 97.5 89 20 132/60 96 12/17/16 20:13 99.9 84 21 158/77 94 12/17/16 16:00 98.0 84 24 133/63 97 12/17/16 12/17/16 12/18/16 15:00 23:00 07:00 Intake Total 860 ml 380 ml Output Total 400 ml Balance 460 ml 380 ml Intake Oral 860 ml 380 ml Output Urine Total 400 ml # Voids 2 Laboratory Tests Test 12/17/16 12/18/16 05:47 04:35 White Blood Count 26.7 TH/MM3 25.4 TH/MM3 Red Blood Count 3.98 MIL/MM3 3.83 MIL/MM3 Hemoglobin 12.2 GM/DL 11.3 GM/DL Hematocrit 36.1 % 34.8 % Mean Corpuscular Volume 90.7 FL 91.0 FL Mean Corpuscular Hemoglobin 30.6 PG 29.6 PG Mean Corpuscular Hemoglobin 33.7 % 32.5 % Concent Red Cell Distribution Width 14.7 % 14.7 % Platelet Count 179 TH/MM3 151 TH/MM3 Mean Platelet Volume 9.2 FL 9.6 FL Neutrophils (%) (Auto) % 86.3 % Lymphocytes (%) (Auto) % 5.9 % Monocytes (%) (Auto) % 7.6 % Eosinophils (%) (Auto) % 0.0 % Basophils (%) (Auto) % 0.2 % Neutrophils # (Auto) TH/MM3 21.9 TH/MM3 Lymphocytes # (Auto) TH/MM3 1.5 TH/MM3 Monocytes # (Auto) TH/MM3 1.9 TH/MM3 Eosinophils # (Auto) TH/MM3 0.0 TH/MM3 Basophils # (Auto) TH/MM3 0.1 TH/MM3 CBC Comment AUTO DIFF DIFF FINAL Differential Total Cells 100 Counted Neutrophils % (Manual) 80 % Band Neutrophils % 9 % Lymphocytes % 5 % Monocytes % 3 % Neutrophils # (Manual) 24.6 TH/MM3 Metamyelocytes 3 % Differential Comment FINAL DIFF MANUAL Laboratory Tests Test 12/17/16 05:47 Sodium Level 138 MEQ/L Potassium Level 3.6 MEQ/L Chloride Level 106 MEQ/L Carbon Dioxide Level 22.7 MEQ/L Anion Gap 9 MEQ/L Blood Urea Nitrogen 17 MG/DL Creatinine 0.83 MG/DL Estimat Glomerular Filtration 98 ML/MIN Rate Random Glucose 94 MG/DL Calcium Level 7.8 MG/DL Microbiology Date/Time Procedure Status Source Growth 12/16/16 07:00 Aerobic Blood Culture - Preliminary Resulted Blood Peripheral Gram Negative Yovany Staphylococcus Species 12/16/16 07:00 Anaerobic Blood Culture - Preliminary Resulted Gram Negative Yovany Staphylococcus Species 12/16/16 07:05 Aerobic Blood Culture - Preliminary Resulted Blood Peripheral Staph Sp Coagulase Negative 12/16/16 07:05 Anaerobic Blood Culture - Preliminary Resulted Staphylococcus Species 12/17/16 11:57 Aerobic Blood Culture - Preliminary Resulted Blood Peripheral NO GROWTH IN 1 DAY 12/17/16 11:57 Anaerobic Blood Culture - Preliminary Resulted Blood Peripheral NO GROWTH IN 1 DAY 12/17/16 12:06 Aerobic Blood Culture - Preliminary Resulted Blood Peripheral NO GROWTH IN 1 DAY 12/17/16 12:06 Anaerobic Blood Culture - Preliminary Resulted Blood Peripheral NO GROWTH IN 1 DAY IMAGING: Scrotum Ultrasound 12/16/16 0000 Signed Impressions: Service Date/Time: Friday, December 16, 2016 11:53 - CONCLUSION: 1. Extensive scrotal wall thickening and edema. 2. Positive testicular blood flow bilaterally without suspicious solid testicular mass. 3. Complex fluid contiguous with the inferior portion of the left testicle measures 2.6 cm in diameter. Small left-sided epididymal nodule. Small varicoceles bilaterally. Irving Payne MD PHYSICAL EXAMINATION GENERAL: No acute distress. HEENT: Extraocular movements grossly intact, pupils reactive to light. No icterus. Oropharynx has no visible lesions. NECK: Supple without adenopathy. LUNGS: Diminished breath sounds. HEART: Regular rate and rhythm without murmurs, rubs or gallops. : Marked scrotal swelling unchanged. The scrotum is about the size of a large grapefruit. It is erythematous, tender and warm. There is a tiny superficial ulcerated area approximately 1 mm to 2 mm in circumference at the surface of the scrotum. EXTREMITIES: No clubbing, cyanosis or edema. SKIN: No rash. NEUROLOGIC: No gross focal findings. IMPRESSION 1. Bacteremia. Staph and gram negative yovany. 2. Scrotal cellulitis. 3. Leukocytosis secondary to infection. RECOMMENDATIONS 1. Continue vancomycin. 2. Change Unasyn to PIP/Tazo. 3. Monitor blood culture and sensitivity and identity. 4. Monitor white blood cell count. 5. Monitor clinical response to antibiotic treatment. Austin Heaton MD Dec 18, 2016 13:00
[2016-12-18] MEDS: ENOXAPARIN SODIUM 40 MG/0.4 ML SYRINGE SQ SCH (13:36)
[2016-12-18] MEDS: VANCOMYCIN INJ 2,250 MG in SODIUM CHLORID 0.9% 500 ML INJ 500 ML IV SCH ×2 (13:38→23:43)
--- NOTE | 2016-12-18 13:57 | RADRPT ---
EXAM DATE/TIME: 12/18/2016 12:50 [facility] COMPARISON: US TESTICLE W/DOPPLER, December 16, 2016, 11:53. INDICATIONS : Follow up for scrotal edema. MEDICAL HISTORY : Chronic obstructive pulmonary disease. Bipolar disorder. Depression. Anxiety. SURGICAL HISTORY : Carpal tunnel repair. ENCOUNTER: Subsequent ACUITY: 4 - 6 days PAIN SCORE: 8/10 LOCATION: Bilateral scrotum. MEASUREMENTS: RIGHT TESTICLE: 3.2 x 2.6 x 2.4cm LEFT TESTICLE: 4.1 x 2.9 x 2.3cm FINDINGS: No testicular masses are identified. There is positive testicular flow. Right epididymis is within no rmal limits. There is a 6 mm x 9 mm solid lesion in the left epididymal region. Small bilateral varic oceles, left greater than right. Trace left hydrocele. Severe scrotal edema persists. Previously iden tified complex fluid inferior to the left testicle is similar in appearance to prior exam. CONCLUSION: 1. No solid testicular masses. Positive testicular blood flow. Small varicoceles and left hydrocele. 2. Severe scrotal wall edema similar to prior exam. Irving Payne MD on December 18, 2016 at 13:50 Board Certified Radiologist. This report was verified electronically.
[2016-12-18] MEDS ORDERED: PIPERACIL-TAZO 4.5 GM PREMIX 100 ML IV SCH (14:00)
[2016-12-18 16:00] VITALS: BP 135/63; PULSE 80; RESP 20; TEMP 99; O2SAT 95
[2016-12-18] MEDS: PIPERACIL-TAZO 4.5 GM PREMIX 100 ML IV SCH ×2 (16:00→19:53)
[2016-12-18] MEDS: DIVALPROEX SODIUM DELAYED RELEASE 250 MG TAB PO SCH (19:47)
[2016-12-18 20:12] VITALS: BP 134/69; PULSE 80; RESP 18; TEMP 99.7; O2SAT 95
[2016-12-19 00:05] VITALS: BP 127/64; PULSE 77; RESP 21; TEMP 97.5; O2SAT 94
[2016-12-19] MEDS: guaiFENesin/DEXTROMETHORPHAN 200 MG/20 MG/10 ML CUP PO PRN ×3 (02:07→21:45)
[2016-12-19] MEDS: PIPERACIL-TAZO 4.5 GM PREMIX 100 ML IV SCH ×4 (02:07→21:22)
[2016-12-19 06:46] LABS: AUTOMATED NEUTROPHIL # 14.6 TH/MM3 (1.8-7.7); BASOPHIL # 0.1 TH/MM3 (0-0.2); BASOPHIL % 0.4 % (0.0-2.0); EOSINOPHIL % 0.2 % (0.0-4.0); HEMATOCRIT 33.7 % (39.0-51.0); LYMPH % 8.7 % (9.0-44.0); LYMPHOCYTE # 1.6 TH/MM3 (1.0-4.8); MEAN CELL VOLUME 91.3 FL (80.0-100.0); MEAN CORPUSCULAR HEMOGLOBIN 29.7 PG (27.0-34.0); MEAN CORPUSCULAR HGB CONC 32.6 % (32.0-36.0); MONO % 10.8 % (0.0-8.0); NEUT % 79.9 % (16.0-70.0); PLATELET COUNT 175 TH/MM3 (150-450); RED CELL DISTRIBUTION WIDTH 14.8 % (11.6-17.2); WHITE BLOOD COUNT 18.3 TH/MM3 (4.0-11.0)
[2016-12-19 06:57] LABS: HEMO FLAGS AUTO DIFF
[2016-12-19] MEDS: FAMOTIDINE 20 MG TAB PO SCH ×2 (07:15→21:21)
[2016-12-19] MEDS: ACETAMINOPHEN 325 MG TAB PO PRN ×2 (07:24→15:44)
[2016-12-19] MEDS: RESP: ALBUTEROL 2.5 MG/IPRATROPIUM 0.5 MG NEB (SCH) NEB ×2 (08:00→20:00)
[2016-12-19 08:55] LABS: SCAN/DIFF AUTO DIFF CONFIRMED
--- NOTE | 2016-12-19 11:25 | HHI.PR ---
Subjective Remarks Follow-up sepsis/scrotal cellulitis and now bacteremia 12/17/16-patient seen and examined, still spiking fever and complains of scrotal pain. Blood culture positive for gram-negative rods and gram positive cocci 12/18/16-patient seen and examined, Tmax 102 maternal and reports some improvement of scrotal pain. Repeat blood culture negative to date 12/19/16-patient seen and examined, Tmax 99.8 at 8 PM however currently afebrile and complains of more testicular swelling. States he is disappointed because he seen no change in his current treatment. WBC trending down and patient is currently on both vancomycin and Zosyn, Unasyn was discontinued yesterday Objective Vitals Vital Signs Date Time Temp Pulse Resp B/P Pulse Ox O2 Delivery O2 Flow Rate FiO2 12/19/16 08:16 18 12/19/16 08:16 18 12/19/16 00:05 97.5 77 21 127/64 94 12/18/16 20:12 99.7 80 18 134/69 95 12/18/16 16:00 99.0 80 20 135/63 95 12/18/16 12:00 98.1 87 18 131/87 98 I/O 12/18/16 12/18/16 12/18/16 12/19/16 12/19/16 12/19/16 07:00 15:00 23:00 07:00 15:00 23:00 Intake Total 380 ml 375 ml 1215 ml 1181 ml Balance 380 ml 375 ml 1215 ml 1181 ml Intake Oral 380 ml 375 ml 480 ml 480 ml IV Total 735 ml 701 ml # Voids 2 5 3 3 # Bowel Movements 4 1 1 Result Diagram: 12/19/16 0547 12/17/16 0547 Imaging Last Impressions Scrotum Ultrasound 12/18/16 0000 Signed Impressions: Service Date/Time: Sunday, December 18, 2016 12:50 - CONCLUSION: 1. No solid testicular masses. Positive testicular blood flow. Small varicoceles and left hydrocele. 2. Severe scrotal wall edema similar to prior exam. Irving Payne MD Objective Remarks GENERAL: NAD SKIN: Warm and dry. HEAD: Normocephalic. EYES: No scleral icterus. No injection or drainage. NECK: Supple, trachea midline. No JVD or lymphadenopathy. CARDIOVASCULAR: Regular rate and rhythm without murmurs, gallops, or rubs. RESPIRATORY: Breath sounds equal bilaterally. No accessory muscle use. GASTROINTESTINAL: Abdomen soft, non-tender, nondistended. MUSCULOSKELETAL: No cyanosis, or edema. : scrotal erythema, swelling BACK: Nontender without obvious deformity. No CVA tenderness. A/P Problem List: (1) Bacteremia due to Gram-positive bacteria ICD Code: R78.81 Status: Acute (2) Bacteremia due to Gram-negative bacteria ICD Code: R78.81 Status: Acute (3) Sepsis affecting skin ICD Code: A41.9 Status: Acute (4) Cellulitis of scrotum ICD Code: N49.2 Status: Acute (5) COPD (chronic obstructive pulmonary disease) ICD Code: J44.9 Status: Chronic (6) Morbid obesity ICD Code: E66.01 Status: Chronic (7) Tobacco abuse ICD Code: Z72.0 Status: Chronic Assessment and Plan 51-year-old man with Bacteremia due to gram-positive cocci and gram-negative dangelo Repeat blood culture NTD 2 days Appreciate input from infectious disease specialist Continue with IV vancomycin and Zosyn Sepsis :2/2 scrotal cellulitis Currently on IV vancomycin and Zosyn Infectious disease specialist input appreciated Monitor culture report Scrotal cellulitis Appreciate input from urology Repeat scrotal ultrasound 12/18/16 noted a review by me Currently on IV antibiotics, parenteral pain medications Elevate scrotum Leukocytosis Trending down From above infectious processes Continue with therapy Monitor CBC PTSD, depression- continue Depakote Tobacco abuse-counseled, Continue nicotine patch COPD-not in exacerbation, DuoNeb's as needed. DVT prophylaxis: Emir Spears MD Dec 19, 2016 11:25
[2016-12-19 12:00] VITALS: BP 107/55; PULSE 63; RESP 17; TEMP 98.3; O2SAT 96
[2016-12-19] MEDS: SENNOSIDES 8.6 MG TAB PO SCH (12:00)
--- NOTE | 2016-12-19 12:21 | HHI.IDPN ---
Note Infectious Disease Note Patient feels no better. Notes pain in scrotum. RN reports he has to be asked about pain since he does not request pain meds. Has flat affect. Denies chills. Afebrile. PAST MEDICAL HISTORY 1. COPD. 2. Post-traumatic stress disorder. 3. Anxiety. ALLERGIES No known drug allergies. ANTIBIOTICS: 1. Vancomycin. 2. Piperacillin/Tazobactam OBJECTIVE: Vital Signs Date Time Temp Pulse Resp B/P Pulse Ox O2 Delivery O2 Flow Rate FiO2 12/19/16 08:16 18 12/19/16 08:16 18 12/19/16 00:05 97.5 77 21 127/64 94 12/18/16 20:12 99.7 80 18 134/69 95 12/18/16 16:00 99.0 80 20 135/63 95 12/18/16 12/18/16 12/19/16 15:00 23:00 07:00 Intake Total 375 ml 1215 ml 1181 ml Balance 375 ml 1215 ml 1181 ml Intake Oral 375 ml 480 ml 480 ml IV Total 735 ml 701 ml # Voids 5 3 3 # Bowel Movements 4 1 1 Laboratory Tests Test 12/18/16 12/19/16 04:35 05:47 White Blood Count 25.4 TH/MM3 18.3 TH/MM3 Red Blood Count 3.83 MIL/MM3 3.70 MIL/MM3 Hemoglobin 11.3 GM/DL 11.0 GM/DL Hematocrit 34.8 % 33.7 % Mean Corpuscular Volume 91.0 FL 91.3 FL Mean Corpuscular Hemoglobin 29.6 PG 29.7 PG Mean Corpuscular Hemoglobin 32.5 % 32.6 % Concent Red Cell Distribution Width 14.7 % 14.8 % Platelet Count 151 TH/MM3 175 TH/MM3 Mean Platelet Volume 9.6 FL 9.9 FL Neutrophils (%) (Auto) 86.3 % 79.9 % Lymphocytes (%) (Auto) 5.9 % 8.7 % Monocytes (%) (Auto) 7.6 % 10.8 % Eosinophils (%) (Auto) 0.0 % 0.2 % Basophils (%) (Auto) 0.2 % 0.4 % Neutrophils # (Auto) 21.9 TH/MM3 14.6 TH/MM3 Lymphocytes # (Auto) 1.5 TH/MM3 1.6 TH/MM3 Monocytes # (Auto) 1.9 TH/MM3 2.0 TH/MM3 Eosinophils # (Auto) 0.0 TH/MM3 0.0 TH/MM3 Basophils # (Auto) 0.1 TH/MM3 0.1 TH/MM3 CBC Comment DIFF FINAL AUTO DIFF Differential Comment AUTO DIFF CONFIRMED Microbiology Date/Time Procedure Status Source Growth 12/17/16 11:57 Aerobic Blood Culture - Preliminary Resulted Blood Peripheral NO GROWTH IN 2 DAYS 12/17/16 11:57 Anaerobic Blood Culture - Preliminary Resulted Blood Peripheral NO GROWTH IN 2 DAYS 12/17/16 12:06 Aerobic Blood Culture - Preliminary Resulted Blood Peripheral NO GROWTH IN 2 DAYS 12/17/16 12:06 Anaerobic Blood Culture - Preliminary Resulted Blood Peripheral NO GROWTH IN 2 DAYS Microbiology Date/Time Procedure Status Source Growth 12/16/16 07:00 Aerobic Blood Culture - Preliminary Resulted Blood Peripheral Gram Negative Yovany Staphylococcus Species 12/16/16 07:00 Anaerobic Blood Culture - Preliminary Resulted Gram Negative Yovany Staphylococcus Species 12/16/16 07:05 Aerobic Blood Culture - Preliminary Resulted Blood Peripheral Staph Sp Coagulase Negative 12/16/16 07:05 Anaerobic Blood Culture - Preliminary Resulted Staphylococcus Species 12/17/16 11:57 Aerobic Blood Culture - Preliminary Resulted Blood Peripheral NO GROWTH IN 1 DAY 12/17/16 11:57 Anaerobic Blood Culture - Preliminary Resulted Blood Peripheral NO GROWTH IN 1 DAY 12/17/16 12:06 Aerobic Blood Culture - Preliminary Resulted Blood Peripheral NO GROWTH IN 1 DAY 12/17/16 12:06 Anaerobic Blood Culture - Preliminary Resulted Blood Peripheral NO GROWTH IN 1 DAY IMAGING: Scrotum Ultrasound 12/16/16 0000 Signed Impressions: Service Date/Time: Friday, December 16, 2016 11:53 - CONCLUSION: 1. Extensive scrotal wall thickening and edema. 2. Positive testicular blood flow bilaterally without suspicious solid testicular mass. 3. Complex fluid contiguous with the inferior portion of the left testicle measures 2.6 cm in diameter. Small left-sided epididymal nodule. Small varicoceles bilaterally. Irving Payne MD PHYSICAL EXAMINATION GENERAL: No acute distress. HEENT: Extraocular movements grossly intact, pupils reactive to light. No icterus. Oropharynx has no visible lesions. NECK: Supple without adenopathy. LUNGS: Diminished breath sounds. HEART: Regular rate and rhythm without murmurs, rubs or gallops. : Marked scrotal swelling unchanged. The scrotum is about the size of a large grapefruit. Still erythematous, tender and warm. EXTREMITIES: No clubbing, cyanosis or edema. SKIN: No rash. NEUROLOGIC: No gross focal findings. IMPRESSION 1. Bacteremia. Staph coag negative and gram negative yovany. 2. Scrotal cellulitis. 3. Leukocytosis secondary to infection. WBC lower. RECOMMENDATIONS 1. Continue vancomycin. 2. Continue PIP/Tazobactam. 3. Monitor blood culture and sensitivity and identity. 4. Monitor white blood cell count. 5. Follow clinical response. Austin Heaton MD Dec 19, 2016 12:20
[2016-12-19] MEDS: guaiFENesin E.R. 600 MG TAB PO SCH ×2 (12:42→21:21)
[2016-12-19] MEDS: ENOXAPARIN SODIUM 40 MG/0.4 ML SYRINGE SQ SCH (12:42)
[2016-12-19] MEDS: VANCOMYCIN INJ 2,250 MG in SODIUM CHLORID 0.9% 500 ML INJ 500 ML IV SCH (12:43)
[2016-12-19] MEDS ORDERED: PHARMACY ORDERED LAB ONE (12:45)
[2016-12-19 16:00] VITALS: BP 110/61; PULSE 63; RESP 20; TEMP 99.6; O2SAT 95
[2016-12-19 20:00] VITALS: BP 125/59; PULSE 68; RESP 22; TEMP 99.4; O2SAT 95
[2016-12-19] MEDS: DIVALPROEX SODIUM DELAYED RELEASE 250 MG TAB PO SCH (21:21)
[2016-12-20] VITALS: BP 119/66; PULSE 72; RESP 22; TEMP 100.6; O2SAT 94
[2016-12-20] MEDS: VANCOMYCIN INJ 2,500 MG in SODIUM CHLORID 0.9% 500 ML INJ 500 ML IV SCH ×2 (00:16→12:50)
[2016-12-20] MEDS: ACETAMINOPHEN 325 MG TAB PO PRN (00:17)
[2016-12-20] MEDS: SENNOSIDES 8.6 MG TAB PO SCH ×2 (00:17→12:00)
[2016-12-20 04:00] VITALS: BP 117/56; PULSE 63; RESP 22; TEMP 97.6; O2SAT 95
[2016-12-20] MEDS: PIPERACIL-TAZO 4.5 GM PREMIX 100 ML IV SCH ×2 (05:05→10:00)
[2016-12-20 05:44] LABS: AUTOMATED NEUTROPHIL # 10.6 TH/MM3 (1.8-7.7); BASOPHIL % 0.2 % (0.0-2.0); EOSINOPHIL # 0.1 TH/MM3 (0-0.4); EOSINOPHIL % 0.6 % (0.0-4.0); HEMATOCRIT 33.5 % (39.0-51.0); HEMO FLAGS DIFF FINAL; LYMPH % 10.8 % (9.0-44.0); LYMPHOCYTE # 1.5 TH/MM3 (1.0-4.8); MEAN CELL VOLUME 91.3 FL (80.0-100.0); MEAN CORPUSCULAR HEMOGLOBIN 29.7 PG (27.0-34.0); MEAN CORPUSCULAR HGB CONC 32.5 % (32.0-36.0); MONO % 13.9 % (0.0-8.0); NEUT % 74.5 % (16.0-70.0); PLATELET COUNT 226 TH/MM3 (150-450); RED BLOOD COUNT 3.67 MIL/MM3 (4.50-5.90); RED CELL DISTRIBUTION WIDTH 15.1 % (11.6-17.2); WHITE BLOOD COUNT 14.2 TH/MM3 (4.0-11.0)
[2016-12-20 08:00] VITALS: BP 127/72; PULSE 65; RESP 22; TEMP 98.8; O2SAT 96
[2016-12-20] MEDS: RESP: ALBUTEROL 2.5 MG/IPRATROPIUM 0.5 MG NEB (SCH) NEB ×2 (08:00→20:00)
[2016-12-20] MEDS: guaiFENesin E.R. 600 MG TAB PO SCH ×2 (08:34→19:28)
[2016-12-20] MEDS: FAMOTIDINE 20 MG TAB PO SCH ×2 (08:34→19:28)
--- NOTE | 2016-12-20 10:22 | HHI.PR ---
Subjective Remarks Follow-up sepsis/scrotal cellulitis and now bacteremia 12/17/16-patient seen and examined, still spiking fever and complains of scrotal pain. Blood culture positive for gram-negative rods and gram positive cocci 12/18/16-patient seen and examined, Tmax 102 maternal and reports some improvement of scrotal pain. Repeat blood culture negative to date 12/19/16-patient seen and examined, Tmax 99.8 at 8 PM however currently afebrile and complains of more testicular swelling. States he is disappointed because he seen no change in his current treatment. WBC trending down and patient is currently on both vancomycin and Zosyn, Unasyn was discontinued yesterday 12/20/16-patient seen and examined, although patient is frustrated however reports some improvement of scrotal swelling. Tmax 100.6 at midnight but currently afebrile. Objective Vitals Vital Signs Date Time Temp Pulse Resp B/P Pulse Ox O2 Delivery O2 Flow Rate FiO2 12/20/16 08:00 98.8 65 22 127/72 96 12/20/16 04:00 97.6 63 22 117/56 95 12/20/16 00:00 100.6 72 22 119/66 94 12/19/16 20:00 99.4 68 22 125/59 95 12/19/16 16:00 99.6 63 20 110/61 95 12/19/16 15:57 18 12/19/16 12:00 98.3 63 17 107/55 96 I/O 12/19/16 12/19/16 12/19/16 12/20/16 12/20/16 12/20/16 07:00 15:00 23:00 07:00 15:00 23:00 Intake Total 1181 ml 781 ml 480 ml 480 ml Balance 1181 ml 781 ml 480 ml 480 ml Intake Oral 480 ml 475 ml 480 ml 480 ml IV Total 701 ml 306 ml # Voids 3 6 2 3 # Bowel Movements 1 0 0 1 Result Diagram: 12/20/1641012/20/16410 Objective Remarks GENERAL: NAD SKIN: Warm and dry. HEAD: Normocephalic. EYES: No scleral icterus. No injection or drainage. NECK: Supple, trachea midline. No JVD or lymphadenopathy. CARDIOVASCULAR: Regular rate and rhythm without murmurs, gallops, or rubs. RESPIRATORY: Breath sounds equal bilaterally. No accessory muscle use. GASTROINTESTINAL: Abdomen soft, non-tender, nondistended. MUSCULOSKELETAL: No cyanosis, or edema. : scrotal erythema, swelling BACK: Nontender without obvious deformity. No CVA tenderness. A/P Problem List: (1) Bacteremia due to Gram-positive bacteria ICD Code: R78.81 Status: Acute (2) Bacteremia due to Gram-negative bacteria ICD Code: R78.81 Status: Acute (3) Sepsis affecting skin ICD Code: A41.9 Status: Acute (4) Cellulitis of scrotum ICD Code: N49.2 Status: Acute (5) COPD (chronic obstructive pulmonary disease) ICD Code: J44.9 Status: Chronic (6) Morbid obesity ICD Code: E66.01 Status: Chronic (7) Tobacco abuse ICD Code: Z72.0 Status: Chronic Assessment and Plan 51-year-old man with Bacteremia due to gram-positive cocci and gram-negative dangelo Repeat blood culture NTD 3 days Appreciate input from infectious disease specialist Continue with IV vancomycin and Zosyn Sepsis :2/2 scrotal cellulitis Currently on IV vancomycin and Zosyn Infectious disease specialist input appreciated Monitor culture report Scrotal cellulitis Appreciate input from urology Repeat scrotal ultrasound 12/18/16 noted Currently on IV antibiotics, parenteral pain medications Elevate scrotum Leukocytosis Trending down From above infectious processes Continue with therapy Monitor CBC PTSD, depression- continue Depakote Tobacco abuse-counseled, Continue nicotine patch COPD-not in exacerbation, DuoNeb's as needed. DVT prophylaxis: Emir Spears MD Dec 20, 2016 10:22
[2016-12-20 12:00] VITALS: BP 130/80; PULSE 66; RESP 22; TEMP 99.3; O2SAT 96
[2016-12-20] MEDS: ENOXAPARIN SODIUM 40 MG/0.4 ML SYRINGE SQ SCH (12:49)
--- NOTE | 2016-12-20 14:34 | HHI.IDPN ---
Note Infectious Disease Note Patient feels no better. Notes pain in scrotum particularly when he moves in bed. Denies chills. Afebrile. PAST MEDICAL HISTORY 1. COPD. 2. Post-traumatic stress disorder. 3. Anxiety. ALLERGIES No known drug allergies. ANTIBIOTICS: 1. Vancomycin. 2. Piperacillin/Tazobactam OBJECTIVE: Vital Signs Date Time Temp Pulse Resp B/P Pulse Ox O2 Delivery O2 Flow Rate FiO2 12/20/16 12:00 99.3 66 22 130/80 96 12/20/16 08:00 98.8 65 22 127/72 96 12/20/16 04:00 97.6 63 22 117/56 95 12/20/16 00:00 100.6 72 22 119/66 94 12/19/16 20:00 99.4 68 22 125/59 95 12/19/16 16:00 99.6 63 20 110/61 95 12/19/16 15:57 18 12/19/16 12/19/16 12/20/16 15:00 23:00 07:00 Intake Total 781 ml 480 ml 480 ml Balance 781 ml 480 ml 480 ml Intake Oral 475 ml 480 ml 480 ml IV Total 306 ml # Voids 6 2 3 # Bowel Movements 0 0 1 Laboratory Tests Test 12/19/16 12/20/16 05:47 04:11 White Blood Count 18.3 TH/MM3 14.2 TH/MM3 Red Blood Count 3.70 MIL/MM3 3.67 MIL/MM3 Hemoglobin 11.0 GM/DL 10.9 GM/DL Hematocrit 33.7 % 33.5 % Mean Corpuscular Volume 91.3 FL 91.3 FL Mean Corpuscular Hemoglobin 29.7 PG 29.7 PG Mean Corpuscular Hemoglobin 32.6 % 32.5 % Concent Red Cell Distribution Width 14.8 % 15.1 % Platelet Count 175 TH/MM3 226 TH/MM3 Mean Platelet Volume 9.9 FL 9.3 FL Neutrophils (%) (Auto) 79.9 % 74.5 % Lymphocytes (%) (Auto) 8.7 % 10.8 % Monocytes (%) (Auto) 10.8 % 13.9 % Eosinophils (%) (Auto) 0.2 % 0.6 % Basophils (%) (Auto) 0.4 % 0.2 % Neutrophils # (Auto) 14.6 TH/MM3 10.6 TH/MM3 Lymphocytes # (Auto) 1.6 TH/MM3 1.5 TH/MM3 Monocytes # (Auto) 2.0 TH/MM3 2.0 TH/MM3 Eosinophils # (Auto) 0.0 TH/MM3 0.1 TH/MM3 Basophils # (Auto) 0.1 TH/MM3 0.0 TH/MM3 CBC Comment AUTO DIFF DIFF FINAL Differential Comment AUTO DIFF CONFIRMED Laboratory Tests Test 12/20/16 04:11 Creatinine 0.93 MG/DL Estimat Glomerular Filtration 86 ML/MIN Rate Scrotum Ultrasound 12/16/16 0000 Signed Impressions: Service Date/Time: Friday, December 16, 2016 11:53 - CONCLUSION: 1. Extensive scrotal wall thickening and edema. 2. Positive testicular blood flow bilaterally without suspicious solid testicular mass. 3. Complex fluid contiguous with the inferior portion of the left testicle measures 2.6 cm in diameter. Small left-sided epididymal nodule. Small varicoceles bilaterally. Irving Payne MD PHYSICAL EXAMINATION GENERAL: No acute distress. HEENT: icterus. Oropharynx has no visible lesions. NECK: Supple without adenopathy. LUNGS: Diminished breath sounds. No rhonchi. HEART: Regular rate and rhythm without murmurs, rubs or gallops. : Marked scrotal swelling unchanged. The scrotum is about the size of a large grapefruit ~ 7 cm diameter. Still erythematous, tender and warm. EXTREMITIES: No clubbing, cyanosis or edema. SKIN: No rash. NEUROLOGIC: No gross focal findings. IMPRESSION 1. Bacteremia. Staph coag negative and Citrobacter. 2. Scrotal cellulitis severe. Slow to respond. 3. Leukocytosis secondary to infection. WBC lower. RECOMMENDATIONS 1. Continue vancomycin. 2. Change PIP/Tazobactam to Levaquin. 3. Monitor white blood cell count. 4. Follow clinical response. Austin Heaton MD Dec 20, 2016 14:34
[2016-12-20] MEDS: LEVOFLOXACIN 750 MG TAB PO SCH (15:38)
[2016-12-20 16:00] VITALS: BP 164/80; PULSE 75; RESP 21; TEMP 98.2; O2SAT 97
[2016-12-20] MEDS: DIVALPROEX SODIUM DELAYED RELEASE 250 MG TAB PO SCH (19:28)
[2016-12-20 20:00] VITALS: BP 133/88; PULSE 65; RESP 20; TEMP 99.1; O2SAT 96
[2016-12-21] VITALS: BP 118/58; PULSE 70; RESP 22; TEMP 97.6; O2SAT 95
[2016-12-21] MEDS: VANCOMYCIN INJ 2,500 MG in SODIUM CHLORID 0.9% 500 ML INJ 500 ML IV SCH ×2 (01:02→13:39)
[2016-12-21] MEDS: SENNOSIDES 8.6 MG TAB PO SCH ×2 (01:02→11:46)
[2016-12-21 07:09] LABS: AUTOMATED NEUTROPHIL # 11.7 TH/MM3 (1.8-7.7); BASOPHIL # 0.1 TH/MM3 (0-0.2); BASOPHIL % 0.3 % (0.0-2.0); EOSINOPHIL # 0.1 TH/MM3 (0-0.4); EOSINOPHIL % 0.9 % (0.0-4.0); HEMATOCRIT 34.6 % (39.0-51.0); HEMO FLAGS DIFF FINAL; LYMPH % 10.4 % (9.0-44.0); LYMPHOCYTE # 1.6 TH/MM3 (1.0-4.8); MEAN CELL VOLUME 91.4 FL (80.0-100.0); MEAN CORPUSCULAR HEMOGLOBIN 29.3 PG (27.0-34.0); MEAN CORPUSCULAR HGB CONC 32.1 % (32.0-36.0); MONO % 12.3 % (0.0-8.0); NEUT % 76.1 % (16.0-70.0); PLATELET COUNT 267 TH/MM3 (150-450); RED BLOOD COUNT 3.78 MIL/MM3 (4.50-5.90); RED CELL DISTRIBUTION WIDTH 15.3 % (11.6-17.2); WHITE BLOOD COUNT 15.3 TH/MM3 (4.0-11.0)
[2016-12-21] MEDS: LEVOFLOXACIN 750 MG TAB PO SCH (07:54)
[2016-12-21] MEDS: FAMOTIDINE 20 MG TAB PO SCH ×2 (07:54→20:37)
[2016-12-21] MEDS: guaiFENesin E.R. 600 MG TAB PO SCH ×2 (07:54→20:37)
[2016-12-21 08:00] VITALS: BP 125/74; PULSE 68; RESP 19; TEMP 98.1; O2SAT 98
[2016-12-21] MEDS: RESP: ALBUTEROL 2.5 MG/IPRATROPIUM 0.5 MG NEB (SCH) NEB ×2 (08:00→19:21)
--- NOTE | 2016-12-21 11:01 | HHI.PR ---
Subjective Remarks Follow-up sepsis/scrotal cellulitis and now bacteremia 12/17/16-patient seen and examined, still spiking fever and complains of scrotal pain. Blood culture positive for gram-negative rods and gram positive cocci 12/18/16-patient seen and examined, Tmax 102 maternal and reports some improvement of scrotal pain. Repeat blood culture negative to date 12/19/16-patient seen and examined, Tmax 99.8 at 8 PM however currently afebrile and complains of more testicular swelling. States he is disappointed because he seen no change in his current treatment. WBC trending down and patient is currently on both vancomycin and Zosyn, Unasyn was discontinued yesterday 12/20/16-patient seen and examined, although patient is frustrated however reports some improvement of scrotal swelling. Tmax 100.6 at midnight but currently afebrile. 12/21/16-patient seen and examined, complains of more scrotal swelling today with some pain. Objective Vitals Vital Signs Date Time Temp Pulse Resp B/P Pulse Ox O2 Delivery O2 Flow Rate FiO2 12/21/16 08:00 98.1 68 19 125/74 98 12/21/16 02:08 20 12/21/16 00:00 97.6 70 22 118/58 95 12/20/16 20:00 99.1 65 20 133/88 96 12/20/16 16:00 98.2 75 21 164/80 97 12/20/16 12:00 99.3 66 22 130/80 96 I/O 12/20/16 12/20/16 12/20/16 12/21/16 12/21/16 12/21/16 07:00 15:00 23:00 07:00 15:00 23:00 Intake Total 480 ml 960 ml 480 ml 980 ml Balance 480 ml 960 ml 480 ml 980 ml Intake Oral 480 ml 360 ml 480 ml 480 ml IV Total 600 ml 500 ml # Voids 3 3 3 # Bowel Movements 1 0 0 Result Diagram: 12/21/16 0538 12/20/16 0411 Objective Remarks GENERAL: NAD SKIN: Warm and dry. HEAD: Normocephalic. EYES: No scleral icterus. No injection or drainage. NECK: Supple, trachea midline. No JVD or lymphadenopathy. CARDIOVASCULAR: Regular rate and rhythm without murmurs, gallops, or rubs. RESPIRATORY: Breath sounds equal bilaterally. No accessory muscle use. GASTROINTESTINAL: Abdomen soft, non-tender, nondistended. MUSCULOSKELETAL: No cyanosis, or edema. : scrotal erythema, swelling BACK: Nontender without obvious deformity. No CVA tenderness. A/P Problem List: (1) Bacteremia due to Gram-positive bacteria ICD Code: R78.81 Status: Acute (2) Bacteremia due to Gram-negative bacteria ICD Code: R78.81 Status: Acute (3) Sepsis affecting skin ICD Code: A41.9 Status: Acute (4) Cellulitis of scrotum ICD Code: N49.2 Status: Acute (5) COPD (chronic obstructive pulmonary disease) ICD Code: J44.9 Status: Chronic (6) Morbid obesity ICD Code: E66.01 Status: Chronic (7) Tobacco abuse ICD Code: Z72.0 Status: Chronic Assessment and Plan 51-year-old man with Bacteremia due to gram-positive cocci and gram-negative dangelo Repeat blood culture NTD 3 days Appreciate input from infectious disease specialist Continue with IV vancomycin and Levaquin Sepsis :2/2 scrotal cellulitis Currently on IV vancomycin and Levaquin Infectious disease specialist input appreciated Monitor culture report Scrotal cellulitis Appreciate input from urology Repeat scrotal ultrasound 12/18/16 noted Currently on IV antibiotics, parenteral pain medications Elevate scrotum Leukocytosis Trending down From above infectious processes Continue with therapy Monitor CBC PTSD, depression- continue Depakote Tobacco abuse-counseled, Continue nicotine patch COPD-not in exacerbation, DuoNeb's as needed. DVT prophylaxis: Emir Spears MD Dec 21, 2016 11:01
[2016-12-21] MEDS ORDERED: EUCERIN CREAM 120 GM JAR TOPICAL PRN (11:15)
[2016-12-21 12:00] VITALS: BP 129/71; PULSE 70; RESP 20; TEMP 99.1; O2SAT 97
[2016-12-21] MEDS ORDERED: PHARMACY ORDERED LAB ONE (12:45)
--- NOTE | 2016-12-21 13:07 | HHI.IDPN ---
Note Infectious Disease Note Patient feels okay. Notes pressure and pain at the scrotum. Denies chills. Afebrile. PAST MEDICAL HISTORY 1. COPD. 2. Post-traumatic stress disorder. 3. Anxiety. ALLERGIES No known drug allergies. ANTIBIOTICS: 1. Vancomycin. 2. Levaquin. OBJECTIVE: Vital Signs Date Time Temp Pulse Resp B/P Pulse Ox O2 Delivery O2 Flow Rate FiO2 12/21/16 12:00 99.1 70 20 129/71 97 12/21/16 08:00 98.1 68 19 125/74 98 12/21/16 02:08 20 12/21/16 00:00 97.6 70 22 118/58 95 12/20/16 20:00 99.1 65 20 133/88 96 12/20/16 16:00 98.2 75 21 164/80 97 12/20/16 12/20/16 12/21/16 15:00 23:00 07:00 Intake Total 960 ml 480 ml 980 ml Balance 960 ml 480 ml 980 ml Intake Oral 360 ml 480 ml 480 ml IV Total 600 ml 500 ml # Voids 3 3 # Bowel Movements 0 0 Laboratory Tests Test 12/20/16 12/21/16 04:11 05:38 White Blood Count 14.2 TH/MM3 15.3 TH/MM3 Red Blood Count 3.67 MIL/MM3 3.78 MIL/MM3 Hemoglobin 10.9 GM/DL 11.1 GM/DL Hematocrit 33.5 % 34.6 % Mean Corpuscular Volume 91.3 FL 91.4 FL Mean Corpuscular Hemoglobin 29.7 PG 29.3 PG Mean Corpuscular Hemoglobin 32.5 % 32.1 % Concent Red Cell Distribution Width 15.1 % 15.3 % Platelet Count 226 TH/MM3 267 TH/MM3 Mean Platelet Volume 9.3 FL 8.8 FL Neutrophils (%) (Auto) 74.5 % 76.1 % Lymphocytes (%) (Auto) 10.8 % 10.4 % Monocytes (%) (Auto) 13.9 % 12.3 % Eosinophils (%) (Auto) 0.6 % 0.9 % Basophils (%) (Auto) 0.2 % 0.3 % Neutrophils # (Auto) 10.6 TH/MM3 11.7 TH/MM3 Lymphocytes # (Auto) 1.5 TH/MM3 1.6 TH/MM3 Monocytes # (Auto) 2.0 TH/MM3 1.9 TH/MM3 Eosinophils # (Auto) 0.1 TH/MM3 0.1 TH/MM3 Basophils # (Auto) 0.0 TH/MM3 0.1 TH/MM3 CBC Comment DIFF FINAL DIFF FINAL Differential Comment Laboratory Tests Test 12/20/16 04:11 Creatinine 0.93 MG/DL Estimat Glomerular Filtration 86 ML/MIN Rate IMAGING: Scrotum Ultrasound 12/18/16 0000 Signed Impressions: Service Date/Time: Sunday, December 18, 2016 12:50 - CONCLUSION: 1. No solid testicular masses. Positive testicular blood flow. Small varicoceles and left hydrocele. 2. Severe scrotal wall edema similar to prior exam. Irving Payne MD Scrotum Ultrasound 12/16/16 0000 Signed Impressions: Service Date/Time: Friday, December 16, 2016 11:53 - CONCLUSION: 1. Extensive scrotal wall thickening and edema. 2. Positive testicular blood flow bilaterally without suspicious solid testicular mass. 3. Complex fluid contiguous with the inferior portion of the left testicle measures 2.6 cm in diameter. Small left-sided epididymal nodule. Small varicoceles bilaterally. Irving Payne MD PHYSICAL EXAMINATION GENERAL: No acute distress. HEENT: icterus. Oropharynx has no visible lesions. NECK: Supple without adenopathy. LUNGS: Diminished breath sounds. HEART: Regular rate and rhythm without murmurs, rubs or gallops. : Marked scrotal swelling unchanged. The scrotum is about the size of a large grapefruit ~ 7 cm diameter. Still erythematous, tender and warm. EXTREMITIES: No clubbing, cyanosis or edema. SKIN: No rash. NEUROLOGIC: No gross focal findings. IMPRESSION 1. Bacteremia. Staph coag negative and Citrobacter. 2. Scrotal cellulitis severe. Slow to respond. 3. Leukocytosis secondary to infection. WBC higher. RECOMMENDATIONS 1. Continue vancomycin. 2. Continue Levaquin. 3. Monitor white blood cell count. 4. Follow clinical response. Austin Heaton MD Dec 21, 2016 13:06
[2016-12-21] MEDS: ENOXAPARIN SODIUM 40 MG/0.4 ML SYRINGE SQ SCH (13:39)
[2016-12-21 16:00] VITALS: BP 119/60; PULSE 64; RESP 20; TEMP 97.7; O2SAT 96
[2016-12-21 20:00] VITALS: BP 159/74; PULSE 64; RESP 21; TEMP 97.4; O2SAT 97
[2016-12-21] MEDS: DIVALPROEX SODIUM DELAYED RELEASE 250 MG TAB PO SCH (20:37)
[2016-12-22] VITALS: BP 141/76; PULSE 66; RESP 19; TEMP 97.8; O2SAT 95
[2016-12-22] MEDS: SENNOSIDES 8.6 MG TAB PO SCH ×3 (00:50→23:21)
[2016-12-22] MEDS: VANCOMYCIN INJ 2,500 MG in SODIUM CHLORID 0.9% 500 ML INJ 500 ML IV SCH ×3 (00:50→23:21)
[2016-12-22] MEDS: FAMOTIDINE 20 MG TAB PO SCH ×2 (07:46→19:24)
[2016-12-22] MEDS: guaiFENesin E.R. 600 MG TAB PO SCH ×2 (07:46→19:24)
[2016-12-22] MEDS: LEVOFLOXACIN 750 MG TAB PO SCH (07:46)
[2016-12-22 08:00] VITALS: BP 148/71; PULSE 65; RESP 17; TEMP 96.2; O2SAT 96
[2016-12-22] MEDS: RESP: ALBUTEROL 2.5 MG/IPRATROPIUM 0.5 MG NEB (SCH) NEB ×2 (08:55→19:46)
--- NOTE | 2016-12-22 11:08 | HHI.PR ---
Subjective Remarks Follow-up sepsis/scrotal cellulitis and now bacteremia 12/17/16-patient seen and examined, still spiking fever and complains of scrotal pain. Blood culture positive for gram-negative rods and gram positive cocci 12/18/16-patient seen and examined, Tmax 102 maternal and reports some improvement of scrotal pain. Repeat blood culture negative to date 12/19/16-patient seen and examined, Tmax 99.8 at 8 PM however currently afebrile and complains of more testicular swelling. States he is disappointed because he seen no change in his current treatment. WBC trending down and patient is currently on both vancomycin and Zosyn, Unasyn was discontinued yesterday 12/20/16-patient seen and examined, although patient is frustrated however reports some improvement of scrotal swelling. Tmax 100.6 at midnight but currently afebrile. 12/21/16-patient seen and examined, complains of more scrotal swelling today with some pain. 12/22/16-patient seen and examined; denies any significant change in his condition however currently afebrile with no significant scrotal pain Objective Vitals Vital Signs Date Time Temp Pulse Resp B/P Pulse Ox O2 Delivery O2 Flow Rate FiO2 12/22/16 08:00 96.2 65 17 148/71 96 12/22/16 00:00 97.8 66 19 141/76 95 12/21/16 20:00 97.4 64 21 159/74 97 12/21/16 16:00 97.7 64 20 119/60 96 12/21/16 12:00 99.1 70 20 129/71 97 I/O 12/21/16 12/21/16 12/21/16 12/22/16 12/22/16 12/22/16 07:00 15:00 23:00 07:00 15:00 23:00 Intake Total 980 ml 860 ml 240 ml 240 ml Balance 980 ml 860 ml 240 ml 240 ml Intake Oral 480 ml 360 ml 240 ml 240 ml IV Total 500 ml 500 ml # Voids 3 1 3 # Bowel Movements 0 1 1 3 Result Diagram: 12/21/16 0538 12/22/16 0330 Objective Remarks GENERAL: NAD SKIN: Warm and dry. HEAD: Normocephalic. EYES: No scleral icterus. No injection or drainage. NECK: Supple, trachea midline. No JVD or lymphadenopathy. CARDIOVASCULAR: Regular rate and rhythm without murmurs, gallops, or rubs. RESPIRATORY: Breath sounds equal bilaterally. No accessory muscle use. GASTROINTESTINAL: Abdomen soft, non-tender, nondistended. MUSCULOSKELETAL: No cyanosis, or edema. : scrotal erythema, swelling BACK: Nontender without obvious deformity. No CVA tenderness. A/P Problem List: (1) Bacteremia due to Gram-positive bacteria ICD Code: R78.81 Status: Acute (2) Bacteremia due to Gram-negative bacteria ICD Code: R78.81 Status: Acute (3) Sepsis affecting skin ICD Code: A41.9 Status: Acute (4) Cellulitis of scrotum ICD Code: N49.2 Status: Acute (5) COPD (chronic obstructive pulmonary disease) ICD Code: J44.9 Status: Chronic (6) Morbid obesity ICD Code: E66.01 Status: Chronic (7) Tobacco abuse ICD Code: Z72.0 Status: Chronic Assessment and Plan 51-year-old man with Bacteremia due to gram-positive cocci and gram-negative dangelo Repeat blood culture NTD 4 days Appreciate input from infectious disease specialist Continue with IV vancomycin and Levaquin Sepsis :2/2 scrotal cellulitis Currently on IV vancomycin and Levaquin Infectious disease specialist input appreciated Monitor culture report Scrotal cellulitis Appreciate input from urology Repeat scrotal ultrasound 12/18/16 noted Currently on IV antibiotics, parenteral pain medications Elevate scrotum Leukocytosis From above infectious processes Continue with therapy Monitor CBC PTSD, depression- continue Depakote Tobacco abuse-counseled, Continue nicotine patch COPD-not in exacerbation, DuoNeb's as needed. DVT prophylaxis: Emir Spears MD Dec 22, 2016 11:08
[2016-12-22 12:00] VITALS: BP 137/71; PULSE 69; RESP 15; TEMP 96.5; O2SAT 97
[2016-12-22] MEDS: ENOXAPARIN SODIUM 40 MG/0.4 ML SYRINGE SQ SCH (13:00)
[2016-12-22 16:00] VITALS: BP 144/78; PULSE 67; RESP 18; TEMP 98.1; O2SAT 96
[2016-12-22] MEDS: DIVALPROEX SODIUM DELAYED RELEASE 250 MG TAB PO SCH (19:24)
[2016-12-22 20:00] VITALS: BP 148/76; PULSE 64; RESP 22; TEMP 98.6; O2SAT 96
[2016-12-23] VITALS: BP 153/74; PULSE 63; RESP 20; TEMP 99.6; O2SAT 97
[2016-12-23 05:45] LABS: AUTOMATED NEUTROPHIL # 11.6 TH/MM3 (1.8-7.7); BASOPHIL # 0.1 TH/MM3 (0-0.2); BASOPHIL % 0.8 % (0.0-2.0); EOSINOPHIL # 0.2 TH/MM3 (0-0.4); EOSINOPHIL % 1.1 % (0.0-4.0); HEMATOCRIT 37.1 % (39.0-51.0); HEMO FLAGS DIFF FINAL; LYMPH % 11.7 % (9.0-44.0); LYMPHOCYTE # 1.8 TH/MM3 (1.0-4.8); MEAN CELL VOLUME 90.7 FL (80.0-100.0); MEAN CORPUSCULAR HEMOGLOBIN 29.2 PG (27.0-34.0); MEAN CORPUSCULAR HGB CONC 32.2 % (32.0-36.0); MONO % 12.1 % (0.0-8.0); NEUT % 74.3 % (16.0-70.0); PLATELET COUNT 376 TH/MM3 (150-450); RED BLOOD COUNT 4.09 MIL/MM3 (4.50-5.90); RED CELL DISTRIBUTION WIDTH 14.9 % (11.6-17.2); WHITE BLOOD COUNT 15.6 TH/MM3 (4.0-11.0)
[2016-12-23 06:01] LABS: BICARBONATE 26.8 MEQ/L (21.0-32.0); POTASSIUM 3.8 MEQ/L (3.5-5.1)
[2016-12-23 08:00] VITALS: BP 154/71; PULSE 66; RESP 17; TEMP 98; O2SAT 97
[2016-12-23] MEDS: RESP: ALBUTEROL 2.5 MG/IPRATROPIUM 0.5 MG NEB (SCH) NEB (08:00)
[2016-12-23] MEDS: FAMOTIDINE 20 MG TAB PO SCH ×2 (08:02→20:36)
[2016-12-23] MEDS: LEVOFLOXACIN 750 MG TAB PO SCH (08:02)
[2016-12-23] MEDS: guaiFENesin E.R. 600 MG TAB PO SCH ×2 (08:02→20:35)
--- NOTE | 2016-12-23 11:20 | HHI.PR ---
Subjective Remarks Follow-up sepsis/scrotal cellulitis and now bacteremia 12/17/16-patient seen and examined, still spiking fever and complains of scrotal pain. Blood culture positive for gram-negative rods and gram positive cocci 12/18/16-patient seen and examined, Tmax 102 maternal and reports some improvement of scrotal pain. Repeat blood culture negative to date 12/19/16-patient seen and examined, Tmax 99.8 at 8 PM however currently afebrile and complains of more testicular swelling. States he is disappointed because he seen no change in his current treatment. WBC trending down and patient is currently on both vancomycin and Zosyn, Unasyn was discontinued yesterday 12/20/16-patient seen and examined, although patient is frustrated however reports some improvement of scrotal swelling. Tmax 100.6 at midnight but currently afebrile. 12/21/16-patient seen and examined, complains of more scrotal swelling today with some pain. 12/22/16-patient seen and examined; denies any significant change in his condition however currently afebrile with no significant scrotal pain 12/23/16-patient seen and examined, complains of urinary frequency. Afebrile Objective Vitals Vital Signs Date Time Temp Pulse Resp B/P Pulse Ox O2 Delivery O2 Flow Rate FiO2 12/23/16 08:00 98.0 66 17 154/71 97 12/23/16 00:00 99.6 63 20 153/74 97 12/22/16 20:00 98.6 64 22 148/76 96 12/22/16 16:00 98.1 67 18 144/78 96 12/22/16 12:00 96.5 69 15 137/71 97 I/O 12/22/16 12/22/16 12/22/16 12/23/16 12/23/16 12/23/16 07:00 15:00 23:00 07:00 15:00 23:00 Intake Total 240 ml 550 ml 380 ml 360 ml Balance 240 ml 550 ml 380 ml 360 ml Intake Oral 240 ml 550 ml 380 ml 360 ml # Voids 8 2 10 # Bowel Movements 3 0 0 Result Diagram: 12/23/16 0512/23/16522 Imaging Last Impressions Scrotum Ultrasound 12/18/16 0000 Signed Impressions: Service Date/Time: Sunday, December 18, 2016 12:50 - CONCLUSION: 1. No solid testicular masses. Positive testicular blood flow. Small varicoceles and left hydrocele. 2. Severe scrotal wall edema similar to prior exam. Irving Payne MD Objective Remarks GENERAL: NAD SKIN: Warm and dry. HEAD: Normocephalic. EYES: No scleral icterus. No injection or drainage. NECK: Supple, trachea midline. No JVD or lymphadenopathy. CARDIOVASCULAR: Regular rate and rhythm without murmurs, gallops, or rubs. RESPIRATORY: Breath sounds equal bilaterally. No accessory muscle use. GASTROINTESTINAL: Abdomen soft, non-tender, nondistended. MUSCULOSKELETAL: No cyanosis, or edema. : scrotal erythema, swelling BACK: Nontender without obvious deformity. No CVA tenderness. A/P Problem List: (1) Bacteremia due to Gram-positive bacteria ICD Code: R78.81 Status: Acute (2) Bacteremia due to Gram-negative bacteria ICD Code: R78.81 Status: Acute (3) Sepsis affecting skin ICD Code: A41.9 Status: Acute (4) Cellulitis of scrotum ICD Code: N49.2 Status: Acute (5) COPD (chronic obstructive pulmonary disease) ICD Code: J44.9 Status: Chronic (6) Morbid obesity ICD Code: E66.01 Status: Chronic (7) Tobacco abuse ICD Code: Z72.0 Status: Chronic Assessment and Plan 51-year-old man with Bacteremia due to gram-positive cocci and gram-negative dangelo Repeat blood culture NTD 5 days Appreciate input from infectious disease specialist Continue with IV vancomycin and Levaquin Sepsis :2/2 scrotal cellulitis Currently on IV vancomycin and Levaquin Infectious disease specialist input appreciated Monitor culture report Scrotal cellulitis Appreciate input from urology Repeat scrotal ultrasound 12/18/16 noted Currently on IV antibiotics, parenteral pain medications Elevate scrotum Leukocytosis From above infectious processes Continue with therapy Monitor CBC PTSD, depression- continue Depakote Tobacco abuse-counseled, Continue nicotine patch COPD-not in exacerbation, DVT prophylaxis: Emir Spears MD Dec 23, 2016 11:20
[2016-12-23] MEDS: SENNOSIDES 8.6 MG TAB PO SCH ×2 (11:36→23:48)
[2016-12-23 12:00] VITALS: BP 144/77; PULSE 59; RESP 18; TEMP 97.8; O2SAT 97
[2016-12-23] MEDS: VANCOMYCIN INJ 2,500 MG in SODIUM CHLORID 0.9% 500 ML INJ 500 ML IV SCH ×2 (12:13→23:48)
[2016-12-23] MEDS: ENOXAPARIN SODIUM 40 MG/0.4 ML SYRINGE SQ SCH (12:13)
[2016-12-23 16:00] VITALS: BP 134/64; PULSE 61; RESP 19; TEMP 98.8; O2SAT 95
[2016-12-23] MEDS: ACETAMINOPHEN 325 MG TAB PO PRN (18:02)
[2016-12-23 20:00] VITALS: BP 117/62; PULSE 66; RESP 20; TEMP 97.9; O2SAT 96
[2016-12-23] MEDS: DIVALPROEX SODIUM DELAYED RELEASE 250 MG TAB PO SCH (20:35)
[2016-12-23 23:04] VITALS: BP 144/65; PULSE 60; RESP 18; TEMP 97.5; O2SAT 97
[2016-12-24] MEDS: FAMOTIDINE 20 MG TAB PO SCH ×2 (07:57→20:14)
[2016-12-24] MEDS: LEVOFLOXACIN 750 MG TAB PO SCH (07:57)
[2016-12-24] MEDS: guaiFENesin E.R. 600 MG TAB PO SCH ×2 (07:57→20:14)
[2016-12-24 08:00] VITALS: BP 123/59; PULSE 67; RESP 24; TEMP 97; O2SAT 94
[2016-12-24 12:00] VITALS: BP 142/67; PULSE 67; RESP 24; TEMP 97.2; O2SAT 97
[2016-12-24] MEDS: ENOXAPARIN SODIUM 40 MG/0.4 ML SYRINGE SQ SCH (12:01)
[2016-12-24] MEDS: SENNOSIDES 8.6 MG TAB PO SCH (12:01)
[2016-12-24] MEDS ORDERED: PHARMACY ORDERED LAB ONE (12:45)
--- NOTE | 2016-12-24 13:45 | HHI.PR ---
Subjective Remarks Follow-up sepsis/scrotal cellulitis and now bacteremia 12/17/16-patient seen and examined, still spiking fever and complains of scrotal pain. Blood culture positive for gram-negative rods and gram positive cocci 12/18/16-patient seen and examined, Tmax 102 maternal and reports some improvement of scrotal pain. Repeat blood culture negative to date 12/19/16-patient seen and examined, Tmax 99.8 at 8 PM however currently afebrile and complains of more testicular swelling. States he is disappointed because he seen no change in his current treatment. WBC trending down and patient is currently on both vancomycin and Zosyn, Unasyn was discontinued yesterday 12/20/16-patient seen and examined, although patient is frustrated however reports some improvement of scrotal swelling. Tmax 100.6 at midnight but currently afebrile. 12/21/16-patient seen and examined, complains of more scrotal swelling today with some pain. 12/22/16-patient seen and examined; denies any significant change in his condition however currently afebrile with no significant scrotal pain 12/23/16-patient seen and examined, complains of urinary frequency. Afebrile 12/24/16-patient seen and examined, stable and no complaint. Afebrile. Good appetite. Objective Vitals Vital Signs Date Time Temp Pulse Resp B/P Pulse Ox O2 Delivery O2 Flow Rate FiO2 12/24/16 12:00 97.2 67 24 142/67 97 12/24/16 08:00 97.0 67 24 123/59 94 12/23/16 23:04 97.5 60 18 144/65 97 12/23/16 20:00 97.9 66 20 117/62 96 12/23/16 16:00 98.8 61 19 134/64 95 I/O 12/23/16 12/23/16 12/23/16 12/24/16 12/24/16 12/24/16 07:00 15:00 23:00 07:00 15:00 23:00 Intake Total 360 ml 1380 ml 420 ml 480 ml Balance 360 ml 1380 ml 420 ml 480 ml Intake Oral 360 ml 880 ml 420 ml 480 ml IV Total 500 ml # Voids 10 8 2 2 # Bowel Movements 0 1 0 Result Diagram: 12/23/16 0523 12/24/16 0542 Objective Remarks GENERAL: NAD SKIN: Warm and dry. HEAD: Normocephalic. EYES: No scleral icterus. No injection or drainage. NECK: Supple, trachea midline. No JVD or lymphadenopathy. CARDIOVASCULAR: Regular rate and rhythm without murmurs, gallops, or rubs. RESPIRATORY: Breath sounds equal bilaterally. No accessory muscle use. GASTROINTESTINAL: Abdomen soft, non-tender, nondistended. MUSCULOSKELETAL: No cyanosis, or edema. : scrotal erythema, with less swelling BACK: Nontender without obvious deformity. No CVA tenderness. A/P Problem List: (1) Bacteremia due to Gram-positive bacteria ICD Code: R78.81 Status: Acute (2) Bacteremia due to Gram-negative bacteria ICD Code: R78.81 Status: Acute (3) Sepsis affecting skin ICD Code: A41.9 Status: Acute (4) Cellulitis of scrotum ICD Code: N49.2 Status: Acute (5) COPD (chronic obstructive pulmonary disease) ICD Code: J44.9 Status: Chronic (6) Morbid obesity ICD Code: E66.01 Status: Chronic (7) Tobacco abuse ICD Code: Z72.0 Status: Chronic Assessment and Plan 51-year-old man with Bacteremia due to gram-stump quite negative Repeat blood culture NTD 5 days Appreciate input from infectious disease specialist Continue with IV vancomycin and Levaquin Sepsis : Resolved Currently on IV vancomycin and Levaquin Infectious disease specialist input appreciated Scrotal cellulitis Improving Appreciate input from urology Repeat scrotal ultrasound 12/18/16 noted Currently on IV antibiotics, parenteral pain medications Elevate scrotum Leukocytosis From above infectious processes Continue with therapy Monitor CBC PTSD, depression- continue Depakote Tobacco abuse-counseled, Continue nicotine patch COPD-not in exacerbation, DVT prophylaxis: Emir Spears MD Dec 24, 2016 13:45
[2016-12-24] MEDS: VANCOMYCIN INJ 2,500 MG in SODIUM CHLORID 0.9% 500 ML INJ 500 ML IV SCH (14:19)
--- NOTE | 2016-12-24 15:07 | HHI.IDPN ---
Note Infectious Disease Note Patient feels okay. Notes less pressure and pain at the scrotum. Denies chills. Afebrile. Size of scrotum decreasing. PAST MEDICAL HISTORY 1. COPD. 2. Post-traumatic stress disorder. 3. Anxiety. ALLERGIES No known drug allergies. ANTIBIOTICS: 1. Vancomycin. 2. Levaquin. OBJECTIVE: Vital Signs Date Time Temp Pulse Resp B/P Pulse Ox O2 Delivery O2 Flow Rate FiO2 12/24/16 12:00 97.2 67 24 142/67 97 12/24/16 08:00 97.0 67 24 123/59 94 12/23/16 23:04 97.5 60 18 144/65 97 12/23/16 20:00 97.9 66 20 117/62 96 12/23/16 16:00 98.8 61 19 134/64 95 12/23/16 12/23/16 12/24/16 15:00 23:00 07:00 Intake Total 1380 ml 420 ml 480 ml Balance 1380 ml 420 ml 480 ml Intake Oral 880 ml 420 ml 480 ml IV Total 500 ml # Voids 8 2 2 # Bowel Movements 1 0 Laboratory Tests Test 12/23/16 05:23 White Blood Count 15.6 TH/MM3 Red Blood Count 4.09 MIL/MM3 Hemoglobin 11.9 GM/DL Hematocrit 37.1 % Mean Corpuscular Volume 90.7 FL Mean Corpuscular Hemoglobin 29.2 PG Mean Corpuscular Hemoglobin 32.2 % Concent Red Cell Distribution Width 14.9 % Platelet Count 376 TH/MM3 Mean Platelet Volume 8.1 FL Neutrophils (%) (Auto) 74.3 % Lymphocytes (%) (Auto) 11.7 % Monocytes (%) (Auto) 12.1 % Eosinophils (%) (Auto) 1.1 % Basophils (%) (Auto) 0.8 % Neutrophils # (Auto) 11.6 TH/MM3 Lymphocytes # (Auto) 1.8 TH/MM3 Monocytes # (Auto) 1.9 TH/MM3 Eosinophils # (Auto) 0.2 TH/MM3 Basophils # (Auto) 0.1 TH/MM3 CBC Comment DIFF FINAL Differential Comment Laboratory Tests Test 12/23/16 12/24/16 05:23 05:42 Sodium Level 140 MEQ/L Potassium Level 3.8 MEQ/L Chloride Level 105 MEQ/L Carbon Dioxide Level 26.8 MEQ/L Anion Gap 8 MEQ/L Blood Urea Nitrogen 8 MG/DL Creatinine 0.93 MG/DL 1.04 MG/DL Estimat Glomerular Filtration 86 ML/MIN 76 ML/MIN Rate Random Glucose 104 MG/DL Calcium Level 8.6 MG/DL IMAGING: Scrotum Ultrasound 12/18/16 0000 Signed Impressions: Service Date/Time: Sunday, December 18, 2016 12:50 - CONCLUSION: 1. No solid testicular masses. Positive testicular blood flow. Small varicoceles and left hydrocele. 2. Severe scrotal wall edema similar to prior exam. Irving Payne MD Scrotum Ultrasound 12/16/16 0000 Signed Impressions: Service Date/Time: Friday, December 16, 2016 11:53 - CONCLUSION: 1. Extensive scrotal wall thickening and edema. 2. Positive testicular blood flow bilaterally without suspicious solid testicular mass. 3. Complex fluid contiguous with the inferior portion of the left testicle measures 2.6 cm in diameter. Small left-sided epididymal nodule. Small varicoceles bilaterally. Irving Payne MD PHYSICAL EXAMINATION GENERAL: No acute distress. HEENT: No icterus. Oropharynx has no visible lesions. NECK: Supple without adenopathy. LUNGS: Diminished breath sounds. HEART: Regular rate and rhythm without murmurs, rubs or gallops. : Marked scrotal swelling unchanged. The scrotum swelling is decreased. Still erythematous, tender and warm. EXTREMITIES: No clubbing, cyanosis or edema. SKIN: No rash. NEUROLOGIC: No gross focal findings. IMPRESSION 1. Bacteremia. Staph coag negative and Citrobacter. 2. Scrotal cellulitis severe. Slow to respond. 3. Leukocytosis secondary to infection. WBC still elevated. RECOMMENDATIONS 1. Continue vancomycin. 2. Continue Levaquin. 3. Monitor white blood cell count tomorrow. 4. Follow clinical response. Austin Heaton MD Dec 24, 2016 15:07
[2016-12-24 16:00] VITALS: BP 104/57; PULSE 65; RESP 24; TEMP 96.2; O2SAT 97
[2016-12-24 20:00] VITALS: BP 148/67; PULSE 65; RESP 20; TEMP 96.7; O2SAT 95
[2016-12-24] MEDS: DIVALPROEX SODIUM DELAYED RELEASE 250 MG TAB PO SCH (20:14)
[2016-12-24 23:39] VITALS: BP 144/70; PULSE 61; RESP 19; TEMP 98.6; O2SAT 96
[2016-12-25] MEDS: VANCOMYCIN INJ 2,500 MG in SODIUM CHLORID 0.9% 500 ML INJ 500 ML IV SCH ×3 (00:58→23:43)
[2016-12-25] MEDS: SENNOSIDES 8.6 MG TAB PO SCH ×3 (00:58→23:43)
[2016-12-25 05:54] LABS: MEAN CELL VOLUME 90.7 FL (80.0-100.0); MEAN CORPUSCULAR HEMOGLOBIN 29.3 PG (27.0-34.0); MEAN CORPUSCULAR HGB CONC 32.3 % (32.0-36.0); PLATELET COUNT 377 TH/MM3 (150-450); RED BLOOD COUNT 4.52 MIL/MM3 (4.50-5.90); RED CELL DISTRIBUTION WIDTH 14.7 % (11.6-17.2); REVIEW FLAG FINAL; WHITE BLOOD COUNT 14.9 TH/MM3 (4.0-11.0)
[2016-12-25 08:00] VITALS: BP 127/62; PULSE 62; RESP 20; TEMP 98.8; O2SAT 95
[2016-12-25] MEDS: LEVOFLOXACIN 750 MG TAB PO SCH (08:34)
[2016-12-25] MEDS: FAMOTIDINE 20 MG TAB PO SCH ×2 (08:34→23:43)
[2016-12-25] MEDS: guaiFENesin E.R. 600 MG TAB PO SCH ×2 (08:34→23:43)
--- NOTE | 2016-12-25 10:58 | HHI.PR ---
Subjective Remarks Follow-up sepsis/scrotal cellulitis and now bacteremia 12/17/16-patient seen and examined, still spiking fever and complains of scrotal pain. Blood culture positive for gram-negative rods and gram positive cocci 12/18/16-patient seen and examined, Tmax 102 maternal and reports some improvement of scrotal pain. Repeat blood culture negative to date 12/19/16-patient seen and examined, Tmax 99.8 at 8 PM however currently afebrile and complains of more testicular swelling. States he is disappointed because he seen no change in his current treatment. WBC trending down and patient is currently on both vancomycin and Zosyn, Unasyn was discontinued yesterday 12/20/16-patient seen and examined, although patient is frustrated however reports some improvement of scrotal swelling. Tmax 100.6 at midnight but currently afebrile. 12/21/16-patient seen and examined, complains of more scrotal swelling today with some pain. 12/22/16-patient seen and examined; denies any significant change in his condition however currently afebrile with no significant scrotal pain 12/23/16-patient seen and examined, complains of urinary frequency. Afebrile 12/24/16-patient seen and examined, stable and no complaint. Afebrile. Good appetite. 12/25/16-patient seen and examined, complains of right upper arm swelling at previous IV access site. Less testicular pain and swelling. Afebrile Objective Vitals Vital Signs Date Time Temp Pulse Resp B/P Pulse Ox O2 Delivery O2 Flow Rate FiO2 12/25/16 08:00 98.8 62 20 127/62 95 12/24/16 23:39 98.6 61 19 144/70 96 12/24/16 20:00 96.7 65 20 148/67 95 12/24/16 16:00 96.2 65 24 104/57 97 12/24/16 12:00 97.2 67 24 142/67 97 I/O 12/24/16 12/24/16 12/24/16 12/25/16 12/25/16 12/25/16 07:00 15:00 23:00 07:00 15:00 23:00 Intake Total 480 ml 960 ml 360 ml 360 ml 120 ml Balance 480 ml 960 ml 360 ml 360 ml 120 ml Intake Oral 480 ml 960 ml 360 ml 360 ml 120 ml IV Total 0 ml # Voids 2 7 2 2 # Bowel Movements 1 0 0 Result Diagram: 12/25/16 0511 12/24/16 0542 Objective Remarks GENERAL: NAD SKIN: Warm and dry. HEAD: Normocephalic. EYES: No scleral icterus. No injection or drainage. NECK: Supple, trachea midline. No JVD or lymphadenopathy. CARDIOVASCULAR: Regular rate and rhythm without murmurs, gallops, or rubs. RESPIRATORY: Breath sounds equal bilaterally. No accessory muscle use. GASTROINTESTINAL: Abdomen soft, non-tender, nondistended. MUSCULOSKELETAL: No cyanosis, or edema. RUE with induration at previous IV access site : scrotal with swelling BACK: Nontender without obvious deformity. No CVA tenderness. A/P Problem List: (1) Bacteremia due to Gram-positive bacteria ICD Code: R78.81 Status: Acute (2) Bacteremia due to Gram-negative bacteria ICD Code: R78.81 Status: Acute (3) Sepsis affecting skin ICD Code: A41.9 Status: Acute (4) Cellulitis of scrotum ICD Code: N49.2 Status: Acute (5) COPD (chronic obstructive pulmonary disease) ICD Code: J44.9 Status: Chronic (6) Morbid obesity ICD Code: E66.01 Status: Chronic (7) Tobacco abuse ICD Code: Z72.0 Status: Chronic Assessment and Plan 51-year-old man with Bacteremia due to gram-stump quite negative Repeat blood culture NTD Appreciate input from infectious disease specialist Continue with IV vancomycin and Levaquin Sepsis : Resolved Scrotal cellulitis Improving Appreciate input from urology Repeat scrotal ultrasound 12/18/16 noted Currently on IV antibiotics, parenteral pain medications Elevate scrotum Leukocytosis From above infectious processes Continue with therapy Monitor CBC PTSD, depression- continue Depakote Tobacco abuse-counseled, Continue nicotine patch Previous IV access site induration Apply warm compress Consider Doppler to rule out thrombosis COPD-not in exacerbation, DVT prophylaxis: Emir Spears MD Dec 25, 2016 10:58
[2016-12-25 12:00] VITALS: BP 129/68; PULSE 63; RESP 19; TEMP 97.8; O2SAT 96
[2016-12-25] MEDS: ENOXAPARIN SODIUM 40 MG/0.4 ML SYRINGE SQ SCH (12:22)
[2016-12-25 16:00] VITALS: BP 128/79; PULSE 98; RESP 20; TEMP 97.7; O2SAT 98
[2016-12-25 20:00] VITALS: BP 124/64; PULSE 71; RESP 20; TEMP 98.4; O2SAT 97
[2016-12-25] MEDS: DIVALPROEX SODIUM DELAYED RELEASE 250 MG TAB PO SCH (23:43)
[2016-12-26] VITALS: BP 119/68; PULSE 68; RESP 19; TEMP 99; O2SAT 93
[2016-12-26] MEDS: IBUPROFEN 200 MG TAB PO SCH
[2016-12-26 08:00] VITALS: BP 101/67; PULSE 80; RESP 18; TEMP 98.2; O2SAT 95
[2016-12-26] MEDS: guaiFENesin E.R. 600 MG TAB PO SCH ×2 (09:13→21:49)
[2016-12-26] MEDS: LEVOFLOXACIN 750 MG TAB PO SCH (09:13)
[2016-12-26] MEDS: FAMOTIDINE 20 MG TAB PO SCH ×2 (09:13→21:48)
--- NOTE | 2016-12-26 11:47 | HHI.PR ---
Subjective Remarks Follow-up sepsis/scrotal cellulitis and now bacteremia 12/17/16-patient seen and examined, still spiking fever and complains of scrotal pain. Blood culture positive for gram-negative rods and gram positive cocci 12/18/16-patient seen and examined, Tmax 102 maternal and reports some improvement of scrotal pain. Repeat blood culture negative to date 12/19/16-patient seen and examined, Tmax 99.8 at 8 PM however currently afebrile and complains of more testicular swelling. States he is disappointed because he seen no change in his current treatment. WBC trending down and patient is currently on both vancomycin and Zosyn, Unasyn was discontinued yesterday 12/20/16-patient seen and examined, although patient is frustrated however reports some improvement of scrotal swelling. Tmax 100.6 at midnight but currently afebrile. 12/21/16-patient seen and examined, complains of more scrotal swelling today with some pain. 12/22/16-patient seen and examined; denies any significant change in his condition however currently afebrile with no significant scrotal pain 12/23/16-patient seen and examined, complains of urinary frequency. Afebrile 12/24/16-patient seen and examined, stable and no complaint. Afebrile. Good appetite. 12/25/16-patient seen and examined, complains of right upper arm swelling at previous IV access site. Less testicular pain and swelling. Afebrile 12/26/16-patient seen and examined, states his legal rights have been violated. States no one has no over his right upper arm swelling over the past 4 days, however I told patient that this was discussed only yesterday 12/25/16 Objective Vitals Vital Signs Date Time Temp Pulse Resp B/P Pulse Ox O2 Delivery O2 Flow Rate FiO2 12/26/16 08:00 98.2 80 18 101/67 95 12/26/16 00:00 99.0 68 19 119/68 93 12/25/16 20:00 98.4 71 20 124/64 97 12/25/16 16:00 97.7 98 20 128/79 98 12/25/16 12:00 97.8 63 19 129/68 96 I/O 12/25/16 12/25/16 12/25/16 12/26/1617 7/12/17 07:00 15:00 23:00 07:00 15:00 23:00 Intake Total 360 ml 1200 ml 360 ml 413 ml 120 ml Output Total 700 ml Balance 360 ml 500 ml 360 ml 413 ml 120 ml Intake Oral 360 ml 1200 ml 360 ml 240 ml 120 ml IV Total 173 ml Output Urine Total 700 ml # Voids 2 1 2 # Bowel Movements 0 1 1 1 Result Diagram: 12/25/16 0511 12/26/16 0524 Imaging Last Impressions Scrotum Ultrasound 12/18/16 0000 Signed Impressions: Service Date/Time: Sunday, December 18, 2016 12:50 - CONCLUSION: 1. No solid testicular masses. Positive testicular blood flow. Small varicoceles and left hydrocele. 2. Severe scrotal wall edema similar to prior exam. Irving Payne MD Objective Remarks GENERAL: NAD SKIN: Warm and dry. HEAD: Normocephalic. EYES: No scleral icterus. No injection or drainage. NECK: Supple, trachea midline. No JVD or lymphadenopathy. CARDIOVASCULAR: Regular rate and rhythm without murmurs, gallops, or rubs. RESPIRATORY: Breath sounds equal bilaterally. No accessory muscle use. GASTROINTESTINAL: Abdomen soft, non-tender, nondistended. MUSCULOSKELETAL: No cyanosis, or edema. RUE with induration at previous IV access site : scrotal with swelling BACK: Nontender without obvious deformity. No CVA tenderness. A/P Problem List: (1) Bacteremia due to Gram-positive bacteria ICD Code: R78.81 Status: Acute (2) Bacteremia due to Gram-negative bacteria ICD Code: R78.81 Status: Acute (3) Sepsis affecting skin ICD Code: A41.9 Status: Acute (4) Cellulitis of scrotum ICD Code: N49.2 Status: Acute (5) COPD (chronic obstructive pulmonary disease) ICD Code: J44.9 Status: Chronic (6) Morbid obesity ICD Code: E66.01 Status: Chronic (7) Tobacco abuse ICD Code: Z72.0 Status: Chronic Assessment and Plan 51-year-old man with Bacteremia due to gram-stump quite negative Repeat blood culture NTD Appreciate input from infectious disease specialist Continue with IV vancomycin and Levaquin Sepsis : Resolved Scrotal cellulitis Improving Appreciate input from urology Repeat scrotal ultrasound 12/18/16 noted Currently on IV antibiotics, parenteral pain medications Elevate scrotum Leukocytosis From above infectious processes Continue with therapy Monitor CBC PTSD, depression- continue Depakote Tobacco abuse-counseled, Continue nicotine patch Previous IV access site induration Apply warm compress Check Doppler to rule out thrombosis COPD-not in exacerbation, DVT prophylaxis: Emir Spears MD Dec 26, 2016 11:47
[2016-12-26 12:00] VITALS: BP 96/69; PULSE 78; RESP 20; TEMP 97.8; O2SAT 96
[2016-12-26] MEDS: SENNOSIDES 8.6 MG TAB PO SCH ×2 (12:00→21:49)
[2016-12-26] MEDS ORDERED: PHARMACY ORDERED LAB ONE (12:45)
[2016-12-26] MEDS: ENOXAPARIN SODIUM 40 MG/0.4 ML SYRINGE SQ SCH (13:19)
--- NOTE | 2016-12-26 13:56 | RADRPT ---
EXAM DATE/TIME: 12/26/2016 12:26 [facility] COMPARISON: No previous studies available for comparison. INDICATIONS : Right arm swelling. MEDICAL HISTORY : COPD. Carpel tunnel. Dyspnea. Bipolar disorder. Heartburn. SURGICAL HISTORY : None. ENCOUNTER: Initial ACUITY: 3 days PAIN SCORE: 4/10 LOCATION: Right arm. FINDINGS: There is spontaneous flow documented in the brachial, basilic, axillary, and subclavian veins. These vessels are compressible and augmentation response is documented. No filling defects are seen. The flow is phasic with respiration. Direction of flow in the jugular vein is caudal. There is thrombu s within the cephalic vein. CONCLUSION: There is thrombus within the cephalic vein. Francine Solano MD on December 26, 2016 at 13:53 Board Certified Radiologist. This report was verified electronically.
--- NOTE | 2016-12-26 15:42 | HHI.IDPN ---
Note Infectious Disease Note Patient notes pain at scrotum. Denies chills. Afebrile. Scrotum still swollen with induration at the underside. WBC remain elevated. Thrombus noted at r. cephalic vein. Infiltrated IV site. PAST MEDICAL HISTORY 1. COPD. 2. Post-traumatic stress disorder. 3. Anxiety. ALLERGIES No known drug allergies. ANTIBIOTICS: 1. Vancomycin. 2. Levaquin. OBJECTIVE: Vital Signs Date Time Temp Pulse Resp B/P Pulse Ox O2 Delivery O2 Flow Rate FiO2 12/26/16 12:00 97.8 78 20 96/69 96 12/26/16 08:00 98.2 80 18 101/67 95 12/26/16 00:00 99.0 68 19 119/68 93 12/25/16 20:00 98.4 71 20 124/64 97 12/25/16 16:00 97.7 98 20 128/79 98 12/25/16 12/25/16 12/26/16 15:00 23:00 07:00 Intake Total 1200 ml 360 ml 413 ml Output Total 700 ml Balance 500 ml 360 ml 413 ml Intake Oral 1200 ml 360 ml 240 ml IV Total 173 ml Output Urine Total 700 ml # Voids 1 2 # Bowel Movements 1 1 1 Laboratory Tests Test 12/25/16 05:11 White Blood Count 14.9 TH/MM3 Red Blood Count 4.52 MIL/MM3 Hemoglobin 13.2 GM/DL Hematocrit 41.0 % Mean Corpuscular Volume 90.7 FL Mean Corpuscular Hemoglobin 29.3 PG Mean Corpuscular Hemoglobin 32.3 % Concent Red Cell Distribution Width 14.7 % Platelet Count 377 TH/MM3 Mean Platelet Volume 7.9 FL Laboratory Tests Test 12/26/16 05:24 Creatinine 1.06 MG/DL Estimat Glomerular Filtration 74 ML/MIN Rate IMAGING: Upper Extremity Ultrasound 12/26/16 0000 Signed Impressions: Service Date/Time: Monday, December 26, 2016 12:26 - CONCLUSION: There is thrombus within the cephalic vein. Francine Solano MD Scrotum Ultrasound 12/18/16 0000 Signed Impressions: Service Date/Time: Sunday, December 18, 2016 12:50 - CONCLUSION: 1. No solid testicular masses. Positive testicular blood flow. Small varicoceles and left hydrocele. 2. Severe scrotal wall edema similar to prior exam. Irving Payne MD Scrotum Ultrasound 12/16/16 0000 Signed Impressions: Service Date/Time: Friday, December 16, 2016 11:53 - CONCLUSION: 1. Extensive scrotal wall thickening and edema. 2. Positive testicular blood flow bilaterally without suspicious solid testicular mass. 3. Complex fluid contiguous with the inferior portion of the left testicle measures 2.6 cm in diameter. Small left-sided epididymal nodule. Small varicoceles bilaterally. Irving Payne MD PHYSICAL EXAMINATION GENERAL: No acute distress. HEENT: No icterus. Oropharynx has no visible lesions. NECK: Supple without adenopathy. LUNGS: Diminished breath sounds. HEART: Regular rate and rhythm without murmurs, rubs or gallops. : Marked scrotal swelling unchanged. Still very erythematous, tender and warm. EXTREMITIES: No clubbing, cyanosis or edema. SKIN: No rash. NEUROLOGIC: No gross focal findings. IMPRESSION 1. Bacteremia. Staph coag negative and Citrobacter. 2. Scrotal cellulitis severe. very slow to respond. Probably has abscess that needs to be drained to improve. 3. Leukocytosis secondary to infection. WBC still elevated. RECOMMENDATIONS 1. Continue vancomycin. 2. Continue Levaquin. 3. Reconsult urology. 4. PIC line for IV antibiotics. Austin Heaton MD Dec 26, 2016 15:42
[2016-12-26 16:00] VITALS: BP 110/64; PULSE 73; RESP 20; TEMP 97.5; O2SAT 95
--- NOTE | 2016-12-26 19:10 | RADRPT ---
EXAM DATE/TIME: 12/26/2016 18:49 [facility] COMPARISON: CHEST SINGLE AP, December 16, 2015, 15:11. INDICATIONS : Picc line placement. MEDICAL HISTORY : COPD. Dyspnea. SURGICAL HISTORY : None. ENCOUNTER: Initial ACUITY: 1 day PAIN SCORE: 0/10 LOCATION: chest FINDINGS: PICC line is in good position. Lungs are clear. The heart and pulmonary vascularity are normal. The portion of the bony skeleton visualized is unremarkable. CONCLUSION: PICC line in good position. Charles Galvez MD FACR on December 26, 2016 at 19:08 Board Certified Radiologist. This report was verified electronically.
[2016-12-26] MEDS: VANCOMYCIN INJ 2,500 MG in SODIUM CHLORID 0.9% 500 ML INJ 500 ML IV SCH (19:29)
--- NOTE | 2016-12-26 19:43 | PD.CONS ---
HPI Service Urology Consult Requested By Reason for Consult Scrotal abscess Primary Care Physician Unknown Diagnosis: (1) Bacteremia due to Gram-positive bacteria ICD Code: R78.81 (2) Bacteremia due to Gram-negative bacteria ICD Code: R78.81 (3) Sepsis affecting skin ICD Code: A41.9 (4) Cellulitis of scrotum ICD Code: N49.2 (5) COPD (chronic obstructive pulmonary disease) ICD Code: J44.9 (6) Morbid obesity ICD Code: E66.01 (7) Tobacco abuse ICD Code: Z72.0 History of Present Illness 51yo male with history of COPD, PTSD, and anxiety seen in consultation for scrotal abscess and scrotal cellulitis. Patient reports he began to have scrotal pain and swelling several days ago that has progressively worsened with sharp persistent pain in the scrotum. Patient reports the swelling has improved since hospitalization, however his WBC has not significantly improved. No drainage. Review of Systems ROS Limitations: Clinical Condition Constitutional: COMPLAINS OF: Fever Endocrine: DENIES: Polyuria Eyes: DENIES: Blurred vision Ears, nose, mouth, throat: DENIES: Hearing loss Respiratory: DENIES: Cough Cardiovascular: DENIES: Chest pain Gastrointestinal: DENIES: Abdominal pain Genitourinary: COMPLAINS OF: Testicular Pain, Testicular Swelling, DENIES: Urgency, Hematuria Musculoskeletal: DENIES: Joint pain Hematologic/lymphatic: DENIES: Bruising Immunologic/allergic: DENIES: Eczema Neurologic: DENIES: Headache Psychiatric: DENIES: Anxiety Except as stated in HPI: all other systems reviewed are Neg Past Family Social History Past Medical History Anxiety Depression PTSD COPD Alcohol abuse Tobacco abuse Past Surgical History None Reported Medications Reported Meds & Active Scripts Active Reported [sleep med] Depakote DR (Divalproex Sodium) 250 Mg Tabdr 250 Mg PO HS Allergies: Coded Allergies: No Known Allergies (Verified , 12/16/15) Active Ordered Medications Current Medications Medications (Trade) Dose Ordered Sig/Sagrario Route Start Time Stop Time Status Last Admin (Vancomycin Consult Pharmacy) 0 ml @ 0 mls/hr UNSCH PRN OTHER 12/16/16 11:15 (Tylenol) 650 mg Q6H PRN PO 12/16/16 11:15 12/23/16 18:02 (Roxicodone) 10 mg Q4H PRN PO 12/16/16 11:15 12/21/16 01:08 (Percocet 5-325 Mg) 1 tab Q6H PRN PO 12/16/16 11:15 12/16/16 12:18 (Morphine Inj) 4 mg Q3H PRN IV 12/16/16 11:15 (Narcan Inj) 0.4 mg UNSCH PRN IV 12/16/16 11:15 (Milk Of Magnesia Liq) 30 ml Q12H PRN PO 12/16/16 11:15 (Senokot) 17.2 mg Q12H PO 12/16/16 12:00 12/25/16 00:58 (Lovenox Inj) 40 mg Q24H SQ 12/16/16 13:00 12/26/16 13:19 (Depakote Dr) 250 mg HS PO 12/16/16 21:00 12/25/16 23:43 (Pepcid) 20 mg BID PO 12/17/16 00:45 12/26/16 09:13 (Tylenol) 650 mg Q4H PRN PO 12/17/16 11:00 12/20/16 00:17 (Zofran Inj) 4 mg Q6H PRN IV 12/17/16 11:00 (Tran-Colace) 1 tab BID PRN PO 12/17/16 11:00 (Restoril) 15 mg HS PRN PO 12/17/16 11:00 (Robitussin Dm 200-20 Mg/10 ml Liq) 10 ml Q4H PRN PO 12/19/16 00:15 12/19/16 21:45 (Mucinex Er) 600 mg BID PO 12/19/16 11:30 12/26/16 09:13 (Levaquin) 750 mg DAILY PO 12/20/16 15:00 12/26/16 09:13 Multi-Ingredient Ointment 1 applic 1 applic Q6H PRN TOPICAL 12/21/16 11:15 12/21/16 16:18 (Vancomycin Inj/ NS 500 ml Inj) 525 ml @ 257.5 mls/ hr Q12H IV 12/26/16 18:00 Family History Brother has DM Social History Eight 4-pack weekly of beer Smokes 1/2 ppd 37 years Physical Exam Vital Signs Date Time Temp Pulse Resp B/P Pulse Ox O2 Delivery O2 Flow Rate FiO2 12/26/16 16:00 97.5 73 20 110/64 95 12/26/16 12:00 97.8 78 20 96/69 96 12/26/16 08:00 98.2 80 18 101/67 95 12/26/16 00:00 99.0 68 19 119/68 93 12/25/16 20:00 98.4 71 20 124/64 97 Physical Exam GENERAL: This is a well-nourished, well-developed patient, in no apparent distress. SKIN: No rashes, ecchymoses or lesions. Cool and dry. HEAD: Atraumatic. Normocephalic. EYES: Pupils equal round and reactive. Extraocular motions intact. No scleral icterus. No injection or drainage. ENT: Nose without bleeding, purulent drainage. Airway patent. NECK: Trachea midline. No JVD or lymphadenopathy. CARDIOVASCULAR: Normal pulses, extremities well perfused RESPIRATORY: Nonlabored, equal chest rise GASTROINTESTINAL: Abdomen soft, non-tender, nondistended. GENITOURINARY: Diffuse scrotal edema noted with induration noted throughout scrotum. Palpable area of fluctuance noted in the inferior left lateral scrotum. Diffuse tenderness throughout. MUSCULOSKELETAL: Extremities without clubbing, cyanosis, or edema. NEUROLOGICAL: Awake and alert. Motor and sensory grossly within normal limits. Normal speech. Lab results reviewed: Yes Laboratory Tests Test 12/26/16 12/26/16 05:24 16:50 Creatinine 1.06 Estimat Glomerular Filtration 74 Rate Vancomycin Level Trough 9.2 Result Diagram: 12/25/16 0511 12/26/16 0524 Personally reviewed images: Yes Imaging Last Impressions Upper Extremity Ultrasound 12/26/16 0000 Signed Impressions: Service Date/Time: Monday, December 26, 2016 12:26 - CONCLUSION: There is thrombus within the cephalic vein. Francine Solano MD Chest X-Ray 12/26/16 0000 Signed Impressions: Service Date/Time: Monday, December 26, 2016 18:49 - CONCLUSION: PICC line in good position. Charles Galvez MD FACR Scrotum Ultrasound 12/18/16 0000 Signed Impressions: Service Date/Time: Sunday, December 18, 2016 12:50 - CONCLUSION: 1. No solid testicular masses. Positive testicular blood flow. Small varicoceles and left hydrocele. 2. Severe scrotal wall edema similar to prior exam. Irving Payne MD Assessment and Plan Problem List: (1) Cellulitis of scrotum ICD Code: N49.2 Status: Acute (2) Bacteremia due to Gram-positive bacteria ICD Code: R78.81 Status: Acute Assessment and Plan 51yo male with scrotal abscess and scrotal cellulitis -Personal reviewed prior scrotal ultrasounds with no evidence of scrotal abscess identified -Exam pertinent for possible left lateral inferior scrotal abscess -Will repeat scrotal ultrasound to rule out any further abscess or intratesticular pathology -Patient will likely need incision and drainage of the scrotal wall abscess -Will review Scrotal ultrasound and determine I&D -Continue antibiotics Cheikh Hand MD Dec 26, 2016 19:43
[2016-12-26 20:00] VITALS: BP 116/70; PULSE 78; RESP 20; TEMP 98.9; O2SAT 97
[2016-12-26] MEDS ORDERED: SODIUM CHLORIDE 0.9% FLUSH 10 ML FLUSH IV FLUSH PRN (20:45)
--- NOTE | 2016-12-26 21:13 | RADRPT ---
EXAM DATE/TIME: 12/26/2016 19:41 [facility] COMPARISON: US TESTICLE W/DOPPLER, December 18, 2016, 12:50. INDICATIONS : Scrotal swelling. MEDICAL HISTORY : Chronic obstructive pulmonary disease. Dyspnea. Heartburn. Depression. Substance abuse. SURGICAL HISTORY : Carpel tunnel. ENCOUNTER: Initial ACUITY: 2 weeks PAIN SCORE: 7/10 LOCATION: Bilateral testicle. MEASUREMENTS: RIGHT TESTICLE: 3.2 x 2.6 x 1.6cm LEFT TESTICLE: 3.2 x 2.9 x 2.7cm FINDINGS: Again seen is the significant scrotal edema. Flow is present in both testicles. Complex fluid is se en the left scrotal sac. The left epididymis is prominent. The right epididymis is poorly seen. CONCLUSION: Significant scrotal edema with minimal complex fluid on the left. There is good flow to both testicles. Charles Galvez MD FACR on December 26, 2016 at 21:10 Board Certified Radiologist. This report was verified electronically.
[2016-12-26] MEDS: DIVALPROEX SODIUM DELAYED RELEASE 250 MG TAB PO SCH (21:48)
[2016-12-26 23:57] VITALS: BP 139/67; PULSE 69; RESP 20; TEMP 99; O2SAT 95
[2016-12-27] MEDS: VANCOMYCIN INJ 2,500 MG in SODIUM CHLORID 0.9% 500 ML INJ 500 ML IV SCH ×2 (06:09→17:59)
[2016-12-27 07:46] VITALS: BP 114/57; PULSE 64; RESP 20; TEMP 97.2; O2SAT 95
--- NOTE | 2016-12-27 09:38 | MB ---
cc: REGINALDO BLANCA,BRIGETTE Suresh M.D. DATE OF CONSULTATION 12/26/2016 DATE OF 12/26/[address] Reginaldo Blanca CHIEF COMPLAINT Dr. Blanca requests a consultation for Mr. Hoang with thromboses of the right forearm. HISTORY OF PRESENT ILLNESS Mr. Hoang is a 51-year-old man who presented to the emergency room on 12/16/2015 brought in by EMS for hypotension. He was hydrated, stabilized and discharged. On 12/16/2016, he presented with acute pain. He has generalized weakness, scrotal pain and swelling extending to the perineum and gluteal. He has spontaneous drainage of the scrotum. He is admitted with scrotal cellulitis abscess and was started on antibiotic therapy. During the course of his hospital day, he required peripheral IV placement. He reports pain at the IV on his right forearm antecubital site probably at the site of the cephalic vein. He has miffed that the IV site was removed immediately. Pain along that site progressed and on December 26, 2016 ultrasound showed a thrombus within the cephalic vein in the forearm. The deep veins in the upper arm were negative. At the same time, scrotal ultrasound shows minimal complex fluid on the left, good flow in both testicles. Urology is evaluating the patient. Hematology was consulted for the right forearm thromboses. Infectious disease was consulted for the bacteremia with staph coag-negative and Citrobacter. The scrotal cellulitis is severe and slow to respond. Urology has been reconsulted and is pending a reevaluation of the ultrasound. He remains with elevated white blood cell count. PAST MEDICAL HISTORY 1. Anxiety depression 2. PTSD 3. COPD 4. Alcohol abuse 5. Tobacco abuse 6. Scrotal cellulitis 7. Right forearm superficial vein thromboses/phlebitis. PAST SURGICAL HISTORY None FAMILY HISTORY Significant for brother with diabetes. Mother has no illness at age 72. Father of alcoholic disease in his late 50s. SOCIAL HISTORY He smokes a half a pack a day for 37 years. He drinks four packs of beer weekly. ALLERGIES NO KNOWN DRUG ALLERGIES. MEDICATIONS Includes: 1. Vancomycin 2. Levaquin 3. Guaifenesin 4. Robitussin DM 5. Tylenol p.r.n. 6. Pepcid 7. Depakote 8. Enoxaparin 40 mg subcu PHYSICAL EXAMINATION VITAL SIGNS: Temperature 98.9, heart rate 70, respiratory rate 20, blood pressure 116/70, saturation 97%. Mr. Hoang in a well-developed obese man with a body mass index of 48.8. He weighs 150 kg. HEAD, EYES, EARS, NOSE, AND THROAT: His pupils are reactive to light and accommodation. Oropharynx is clear. NECK: Supple. LUNGS: Clear anteriorly. CARDIOVASCULAR: Exam reveals a normal rate, and rhythm. ABDOMEN: Large and benign. SCROTAL EVALUATION: Deferred. EXTREMITIES: Lower extremities with no edema. Good pulses. Right arm upper extremity PICC line. The right forearm shows erythematous nodule tender to touch with warmth. This is consistent with superficial thrombophlebitis. LABORATORY DATA White blood cell count 14.9, hemoglobin/hematocrit, platelet count are normal, BUN from 12/23/2017 is 8, creatinine 0.93, calcium 8.6. ASSESSMENT/PLAN Mr. Hoang is a 51-year-old man with multiple medical problems described above. He is admitted for scrotal cellulitis requiring antibiotic therapy support. Infectious diseases is consulted. He has a staph coagulase negative species and Citrobacter freundii. He is on antibiotic therapy support through his PICC line. We discussed his traumatic peripheral IV insertion that likely precipitated a superficial vein thromboses. He is already on low-molecular weight heparin 40 mg subcu once daily. I suspect this is a suboptimal dose in light of his body mass index of 48.8. He weighs 150 kg. Alternatively, anti-inflammatory medication to be tried. He has normal renal function. We can try anti-inflammatory medication twice a day as an anti-inflammatory to decrease the symptoms from the superficial vein thromboses in the upper extremity. He is already on antibiotic therapy support. We will monitor his response to NSAIDs. Another option would be to increase his low-molecular weight heparin dose to twice a day. We will try the NSAID's overnight. He is advised to use ice at the area. His questions were answered to his satisfaction. MD MARY KATE Poole/BERTA /10:29 PM /9:25 AM
[2016-12-27] MEDS ORDERED: DIVA500T3 PO (10:57)
[2016-12-27] MEDS ORDERED: HYDR50TA94 PO (10:57)
--- NOTE | 2016-12-27 10:58 | PD.ONC.PN ---
Subjective Subjective Remarks Afebrile overnight. patient states he is still having pain in the right forearm at site of superficial thrombus. He has not noticed much of a difference since starting Ibuprofen. Also having difficulty sleeping at night. Would like to take his hydroxyzine before bed. Objective Data Date Time Temp Pulse Resp B/P Pulse Ox O2 Delivery O2 Flow Rate FiO2 12/27/16 07:46 97.2 64 20 114/57 95 12/27/16 01:00 18 12/26/16 23:57 99.0 69 20 139/67 95 12/26/16 20:00 98.9 78 20 116/70 97 12/26/16 16:00 97.5 73 20 110/64 95 12/26/16 12:00 97.8 78 20 96/69 96 12/27/16 12/27/16 12/27/16 07:00 15:00 23:00 Intake Total 480 ml 240 ml Balance 480 ml 240 ml Result Diagram: 12/25/16 0511 12/26/16 0524 Laboratory Results Laboratory Tests Test 12/26/16 16:50 Vancomycin Level Trough 9.2 MCG/ML Administered Medications Medications (Trade) Dose Ordered Sig/Sagrario Route PRN Reason Start Time Stop Time Status Last Admin Dose Admin Acetaminophen (Tylenol) 650 mg Q6H PRN PO PAIN SCALE 1 TO 2 12/16/16 11:15 12/23/16 18:02 Oxycodone HCl (Roxicodone) 10 mg Q4H PRN PO PAIN SCALE 6 TO 10 12/16/16 11:15 12/21/16 01:08 Oxycodone/ Acetaminophen (Percocet 5-325 Mg) 1 tab Q6H PRN PO PAIN SCALE 3 TO 5 12/16/16 11:15 12/16/16 12:18 Sennosides (Senokot) 17.2 mg Q12H PO 12/16/16 12:00 12/26/16 21:49 Enoxaparin Sodium (Lovenox Inj) 40 mg Q24H SQ 12/16/16 13:00 12/26/16 13:19 Divalproex Sodium (Depakote Dr) 250 mg HS PO 12/16/16 21:00 12/26/16 21:48 Famotidine (Pepcid) 20 mg BID PO 12/17/16 00:45 12/26/16 21:48 Acetaminophen (Tylenol) 650 mg Q4H PRN PO Temp > 100.4 12/17/16 11:00 12/20/16 00:17 Guaifenesin/ Dextromethorphan (Robitussin Dm 200-20 Mg/10 ml Liq) 10 ml Q4H PRN PO congested cough 12/19/16 00:15 12/19/16 21:45 Guaifenesin (Mucinex Er) 600 mg BID PO 12/19/16 11:30 12/26/16 21:49 Levofloxacin (Levaquin) 750 mg DAILY PO 12/20/16 15:00 12/26/16 09:13 Multi-Ingredient Ointment 1 applic 1 applic Q6H PRN TOPICAL dryness 12/21/16 11:15 12/21/16 16:18 Vancomycin HCl/ Sodium Chloride (Vancomycin Inj/ NS 500 ml Inj) 525 ml @ 257.5 mls/ hr Q12H IV 12/26/16 18:00 12/27/16 06:09 Ibuprofen (Advil) 200 mg Q12HR PO 12/26/16 22:45 12/29/16 22:44 12/26/16 00:00 Objective Remarks GENERAL: Middle aged obese male upright [facility]. SKIN: Warm and dry. HEAD: Normocephalic. EYES: No scleral icterus. No injection or drainage. NECK: Supple, trachea midline. CARDIOVASCULAR: Regular rate and rhythm RESPIRATORY: Breath sounds equal bilaterally. No accessory muscle use. GASTROINTESTINAL: Abdomen soft, non-tender, nondistended. EXTREMITIES: No cyanosis. RUE with tenderness and palpable cord along forearm. MUSCULOSKELETAL: Adequate muscle tone. NEUROLOGICAL: No obvious focal deficit. Awake, alert, and oriented x3. Assessment/Plan Problem List: (1) Superficial venous thrombosis of arm Status: Acute Plan: U/S--> showed a thrombus within the cephalic vein in the forearm. --peripheral IV insertion likely precipitated a superficial vein thromboses. --currently on motrin --if this is ineffective will increase to Lovenox BID Assessment 51y/o male admitted with scrotal cellulitis abscess, hematology consulted for thromboses of the right forearm. h/o Anxiety depression PTSD COPD Alcohol abuse Tobacco abuse Scrotal cellulitis Right forearm superficial vein thromboses/phlebitis. Plan 1. increase Lovenox to 40mg SQ BID 2. monitor CBC Attending Statement The exam, history, and the medical decision-making described in the above note were completed with the assistance of the mid-level provider. I reviewed and agree with the findings presented. I attest that I had a [id number] encounter with the patient on the same day, and personally performed and documented my assessment and findings in the medical record. Clinical improved in the size and redness of the R forearm superficial vein clot. Pt reluctant to admit improvement in decrease size and resolution of redness, due to intervention - ice, NSAID and LMWH. Claims it would have gotten better anyway- ie without intervention, not certain why he would choose to believe this. Discussed plan to increase Lovenox and continue ice. Inquired about his mood, feeling depressed. Answers affirmative but state that I don't really want to help. Dismissive with hand gesture waving me away. Psychiatry consult. Jacque Lowe Dec 27, 2016 10:58 Babita Dietrich MD Dec 27, 2016 23:57
--- NOTE | 2016-12-27 11:09 | HHI.PR ---
Subjective Remarks Follow-up sepsis/scrotal cellulitis and now bacteremia 12/17/16-patient seen and examined, still spiking fever and complains of scrotal pain. Blood culture positive for gram-negative rods and gram positive cocci 12/18/16-patient seen and examined, Tmax 102 maternal and reports some improvement of scrotal pain. Repeat blood culture negative to date 12/19/16-patient seen and examined, Tmax 99.8 at 8 PM however currently afebrile and complains of more testicular swelling. States he is disappointed because he seen no change in his current treatment. WBC trending down and patient is currently on both vancomycin and Zosyn, Unasyn was discontinued yesterday 12/20/16-patient seen and examined, although patient is frustrated however reports some improvement of scrotal swelling. Tmax 100.6 at midnight but currently afebrile. 12/21/16-patient seen and examined, complains of more scrotal swelling today with some pain. 12/22/16-patient seen and examined; denies any significant change in his condition however currently afebrile with no significant scrotal pain 12/23/16-patient seen and examined, complains of urinary frequency. Afebrile 12/24/16-patient seen and examined, stable and no complaint. Afebrile. Good appetite. 12/25/16-patient seen and examined, complains of right upper arm swelling at previous IV access site. Less testicular pain and swelling. Afebrile 12/26/16-patient seen and examined, states his legal rights have been violated. States no one has no over his right upper arm swelling over the past 4 days, however I told patient that this was discussed only yesterday 12/25/16 12/27/16-patient seen and examined, reports draining from his scrotum. Patient complains of insomnia and reports some improvement of right upper extremity swelling/ Objective Vitals Vital Signs Date Time Temp Pulse Resp B/P Pulse Ox O2 Delivery O2 Flow Rate FiO2 12/27/16 07:46 97.2 64 20 114/57 95 12/27/16 01:00 18 12/26/16 23:57 99.0 69 20 139/67 95 12/26/16 20:00 98.9 78 20 116/70 97 12/26/16 16:00 97.5 73 20 110/64 95 7/12/17 12:00 97.8 78 20 96/69 96 I/O 12/26/16 12/26/16 12/26/16 12/27/16 12/27/16 12/27/16 07:00 15:00 23:00 07:00 15:00 23:00 Intake Total 413 ml 1080 ml 240 ml 480 ml 240 ml Output Total 100 ml Balance 413 ml 980 ml 240 ml 480 ml 240 ml Intake Oral 240 ml 1080 ml 240 ml 480 ml 240 ml IV Total 173 ml 0 ml Output Urine Total 100 ml # Voids 2 2 2 # Bowel Movements 1 1 0 0 Result Diagram: 12/25/16 0511 12/26/16 0524 Imaging Last Impressions Upper Extremity Ultrasound 12/26/16 0000 Signed Impressions: Service Date/Time: Monday, December 26, 2016 12:26 - CONCLUSION: There is thrombus within the cephalic vein. Francine Solano MD Scrotum Ultrasound 12/26/16 0000 Signed Impressions: Service Date/Time: Monday, December 26, 2016 19:41 - CONCLUSION: Significant scrotal edema with minimal complex fluid on the left. There is good flow to both testicles. Charles Galvez MD FACR Chest X-Ray 12/26/16 0000 Signed Impressions: Service Date/Time: Monday, December 26, 2016 18:49 - CONCLUSION: PICC line in good position. Charles Galvez MD FACR Objective Remarks GENERAL: NAD SKIN: Warm and dry. HEAD: Normocephalic. EYES: No scleral icterus. No injection or drainage. NECK: Supple, trachea midline. No JVD or lymphadenopathy. CARDIOVASCULAR: Regular rate and rhythm without murmurs, gallops, or rubs. RESPIRATORY: Breath sounds equal bilaterally. No accessory muscle use. GASTROINTESTINAL: Abdomen soft, non-tender, nondistended. MUSCULOSKELETAL: No cyanosis, or edema. RUE with induration at previous IV access site : scrotal with swelling BACK: Nontender without obvious deformity. No CVA tenderness. A/P Problem List: (1) Bacteremia due to Gram-positive bacteria ICD Code: R78.81 Status: Acute (2) Bacteremia due to Gram-negative bacteria ICD Code: R78.81 Status: Acute (3) Sepsis affecting skin ICD Code: A41.9 Status: Acute (4) Cellulitis of scrotum ICD Code: N49.2 Status: Acute (5) COPD (chronic obstructive pulmonary disease) ICD Code: J44.9 Status: Chronic (6) Morbid obesity ICD Code: E66.01 Status: Chronic (7) Tobacco abuse ICD Code: Z72.0 Status: Chronic (8) Superficial venous thrombosis of arm ICD Code: I82.619 Status: Acute Assessment and Plan 51-year-old man with Bacteremia due to gram-stump quite negative Repeat blood culture NTD Appreciate input from infectious disease specialist Continue with IV vancomycin and Levaquin Sepsis : Resolved Scrotal cellulitis Appreciate input from urology and consider possible I&D Repeat scrotal ultrasound 12/18/16 noted Currently on IV antibiotics, parenteral pain medications Elevate scrotum Leukocytosis From above infectious processes Continue with therapy Monitor CBC PTSD, depression- continue Depakote Tobacco abuse-counseled, Continue nicotine patch Mood disorder/schizophrenia Continue outpatient medication Supervision venous thrombosis of right upper extremity Appreciate input from hematology Continue with NSAID, ice pack COPD-not in exacerbation, DuoNeb when necessary Insomnia Resume outpatient medication DVT prophylaxis: Lovenox Discharge Planning Discharge home when medically and surgically clear as patient with scrotal cellulitis/abscess possibly requiring I&D Emir Andrews MD Dec 27, 2016 11:09
[2016-12-27] MEDS: SENNOSIDES 8.6 MG TAB PO SCH (11:23)
[2016-12-27] MEDS: IBUPROFEN 200 MG TAB PO SCH ×2 (11:26→20:58)
[2016-12-27] MEDS: guaiFENesin E.R. 600 MG TAB PO SCH ×2 (11:26→20:57)
[2016-12-27] MEDS: LEVOFLOXACIN 750 MG TAB PO SCH (11:26)
[2016-12-27] MEDS: SODIUM CHLORIDE 0.9% FLUSH 10 ML FLUSH IV FLUSH SCH (11:27)
[2016-12-27] MEDS: FAMOTIDINE 20 MG TAB PO SCH ×2 (11:27→20:58)
[2016-12-27 12:00] VITALS: BP 128/62; PULSE 70; RESP 20; TEMP 96.9; O2SAT 95
[2016-12-27] MEDS ORDERED: LIDOCAINE 1%/EPINEPHrine 1:100,000 SOLN 30 ML VIAL ONE (12:56)
[2016-12-27] MEDS ORDERED: LIDOCAINE 1%/EPINEPHrine 1:100,000 SOLN 30 ML VIAL OTHER ONE (13:45)
--- NOTE | 2016-12-27 14:09 | HHI.PR ---
Subjective Patient symptoms today Scrotal abscess identified on exam and Scrotal U/S. Patient continues to report pain in scrotum Objective Vital Signs Vital Signs Date Time Temp Pulse Resp B/P Pulse Ox O2 Delivery O2 Flow Rate FiO2 12/27/16 12:00 96.9 70 20 128/62 95 12/27/16 07:46 97.2 64 20 114/57 95 12/27/16 01:00 18 12/26/16 23:57 99.0 69 20 139/67 95 12/26/16 20:00 98.9 78 20 116/70 97 12/26/16 16:00 97.5 73 20 110/64 95 Intake & Output 12/27/16 12/27/16 07:00 19:00 Intake Total 720 ml 240 ml Balance 720 ml 240 ml Intake Oral 720 ml 240 ml # Voids 4 # Bowel Movements 0 Result Diagram: 12/25/16 0511 12/26/16 0524 Objective Remarks Scrotum erythemetous and swollen, tender to palpation The left inferior scrotal abscess appears larger today, tender to palpation, no drainage Medications and IVs Current Medications Medications (Trade) Dose Ordered Sig/Sagrario Route Start Time Stop Time Status Last Admin (Vancomycin Consult Pharmacy) 0 ml @ 0 mls/hr UNSCH PRN OTHER 12/16/16 11:15 (Tylenol) 650 mg Q6H PRN PO 12/16/16 11:15 12/23/16 18:02 (Roxicodone) 10 mg Q4H PRN PO 12/16/16 11:15 12/21/16 01:08 (Percocet 5-325 Mg) 1 tab Q6H PRN PO 12/16/16 11:15 12/16/16 12:18 (Morphine Inj) 4 mg Q3H PRN IV 12/16/16 11:15 (Narcan Inj) 0.4 mg UNSCH PRN IV 12/16/16 11:15 (Milk Of Magnesia Liq) 30 ml Q12H PRN PO 12/16/16 11:15 (Senokot) 17.2 mg Q12H PO 12/16/16 12:00 12/26/16 21:49 (Pepcid) 20 mg BID PO 12/17/16 00:45 12/27/16 11:27 (Tylenol) 650 mg Q4H PRN PO 12/17/16 11:00 12/20/16 00:17 (Zofran Inj) 4 mg Q6H PRN IV 12/17/16 11:00 (Tran-Colace) 1 tab BID PRN PO 12/17/16 11:00 (Robitussin Dm 200-20 Mg/10 ml Liq) 10 ml Q4H PRN PO 12/19/16 00:15 12/19/16 21:45 (Mucinex Er) 600 mg BID PO 12/19/16 11:30 12/27/16 11:26 (Levaquin) 750 mg DAILY PO 12/20/16 15:00 12/27/16 11:26 Multi-Ingredient Ointment 1 applic 1 applic Q6H PRN TOPICAL 12/21/16 11:15 12/21/16 16:18 (Vancomycin Inj/ NS 500 ml Inj) 525 ml @ 257.5 mls/ hr Q12H IV 12/26/16 18:00 12/27/16 06:09 (NS Flush) See Protocol DAILY IV FLUSH 12/27/16 09:00 12/27/16 11:27 (NS Flush) See Protocol UNSCH PRN IV FLUSH 12/26/16 20:45 (Heparin Central Flush) See Protocol DAILY IV FLUSH 12/27/16 09:00 12/27/16 11:27 (Heparin Central Flush) See Protocol UNSCH PRN IV FLUSH 12/26/16 20:45 (NS Flush) UNSCH PRN IV FLUSH 12/26/16 20:45 Miscellaneous Information SPECIFIC LAB TO BE DRAWN:[facility] TROUGH DATE TO BE DRKaryna.. ONCE ONCE .XX 12/28/16 05:45 12/28/16 05:46 (Advil) 200 mg Q12HR PO 12/26/16 22:45 12/29/16 22:44 12/27/16 11:26 (Lovenox Inj) 40 mg Q12HR SQ 12/27/16 21:00 (Depakote Er) 2,000 mg HS PO 12/27/16 21:00 (Atarax) 100 mg HS PO 12/27/16 21:00 (Xylocaine-Epi 1%-1:100,000 Inj) 30 ml ONCE ONCE OTHER 12/27/16 13:45 12/27/16 13:46 UNV Assessment and Plan Problem List: (1) Cellulitis of scrotum ICD Code: N49.2 Status: Acute (2) Bacteremia due to Gram-positive bacteria ICD Code: R78.81 Status: Acute Assessment and Plan 51yo male with scrotal abscess and scrotal cellulitis -After informed consent, local anesthetic was used with 1% lidocaine -Incision was made approx 5-6cm in length. -Significant amount of red/light pink fluid removed from the area, approx 50- 70cc removed -Wound was then packed with 1/2in plain packing material with gauze and ABD pads on top -Continue antibiotics -Change packing material daily with 1/2in plain packing material or kerlex role daily with 4x4 gauze and ABD pads on top -Arrange for home health to continue daily dressing changes and packing -Patient may followup with Urology after discharge -Please call with questions Cheikh Hand MD Dec 27, 2016 14:09
[2016-12-27 16:00] VITALS: BP 129/63; PULSE 72; RESP 19; TEMP 97.5; O2SAT 95
[2016-12-27 20:00] VITALS: BP 139/65; PULSE 69; RESP 20; TEMP 98.3; O2SAT 97
[2016-12-27] MEDS: ENOXAPARIN SODIUM 40 MG/0.4 ML SYRINGE SQ SCH (20:58)
[2016-12-27] MEDS: hydrOXYzine HCL 50 MG TAB PO SCH (20:58)
[2016-12-27] MEDS: DIVALPROEX SODIUM E.R. 500 MG TAB PO SCH (20:58)
[2016-12-28] VITALS: BP 114/58; PULSE 77; RESP 20; TEMP 98.9; O2SAT 98
[2016-12-28] MEDS ORDERED: PHARMACY ORDERED LAB ONE (05:45)
[2016-12-28] MEDS: VANCOMYCIN INJ 2,500 MG in SODIUM CHLORID 0.9% 500 ML INJ 500 ML IV SCH (05:58)
[2016-12-28 08:00] VITALS: BP 93/49; PULSE 72; RESP 17; TEMP 98.3; O2SAT 98
[2016-12-28] MEDS: FAMOTIDINE 20 MG TAB PO SCH ×2 (09:15→21:00)
[2016-12-28] MEDS: guaiFENesin E.R. 600 MG TAB PO SCH ×2 (09:15→20:58)
[2016-12-28] MEDS: IBUPROFEN 200 MG TAB PO SCH ×2 (09:15→21:02)
[2016-12-28] MEDS: LEVOFLOXACIN 750 MG TAB PO SCH (09:15)
[2016-12-28] MEDS: SODIUM CHLORIDE 0.9% FLUSH 10 ML FLUSH IV FLUSH SCH (09:16)
[2016-12-28] MEDS: ENOXAPARIN SODIUM 40 MG/0.4 ML SYRINGE SQ SCH ×2 (09:16→21:02)
--- NOTE | 2016-12-28 11:48 | HHI.IDPN ---
Note Infectious Disease Note Patient notes pain at scrotum. Had I & D of scrotum 12/27. No culture sent. Denies chills. Afebrile. Scrotum swelling has decreased. Thrombus noted at r. cephalic vein. Infiltrated IV site. PAST MEDICAL HISTORY 1. COPD. 2. Post-traumatic stress disorder. 3. Anxiety. ALLERGIES No known drug allergies. ANTIBIOTICS: 1. Vancomycin. 2. Levaquin. OBJECTIVE: Vital Signs Date Time Temp Pulse Resp B/P Pulse Ox O2 Delivery O2 Flow Rate FiO2 12/28/16 10:15 18 12/28/16 08:00 98.3 72 17 93/49 98 12/28/16 00:00 98.9 77 20 114/58 98 12/27/16 20:00 98.3 69 20 139/65 97 12/27/16 16:00 97.5 72 19 129/63 95 12/27/16 12:00 96.9 70 20 128/62 95 12/27/16 12/27/16 12/28/16 15:00 23:00 07:00 Intake Total 1240 ml 930 ml 0 ml Output Total 1200 ml 120 ml Balance 40 ml 930 ml -120 ml Intake Oral 1240 ml 420 ml IV Total 510 ml 0 ml Output Urine Total 1200 ml 120 ml # Voids 2 # Bowel Movements 0 0 1 Laboratory Tests Test 12/28/16 05:07 Creatinine 0.95 MG/DL Estimat Glomerular Filtration 84 ML/MIN Rate IMAGING: Upper Extremity Ultrasound 12/26/16 0000 Signed Impressions: Service Date/Time: Monday, December 26, 2016 12:26 - CONCLUSION: There is thrombus within the cephalic vein. Francine Solano MD Scrotum Ultrasound 12/18/16 0000 Signed Impressions: Service Date/Time: Sunday, December 18, 2016 12:50 - CONCLUSION: 1. No solid testicular masses. Positive testicular blood flow. Small varicoceles and left hydrocele. 2. Severe scrotal wall edema similar to prior exam. Irving Payne MD Scrotum Ultrasound 12/16/16 0000 Signed Impressions: Service Date/Time: Friday, December 16, 2016 11:53 - CONCLUSION: 1. Extensive scrotal wall thickening and edema. 2. Positive testicular blood flow bilaterally without suspicious solid testicular mass. 3. Complex fluid contiguous with the inferior portion of the left testicle measures 2.6 cm in diameter. Small left-sided epididymal nodule. Small varicoceles bilaterally. Irving Payne MD PHYSICAL EXAMINATION GENERAL: No acute distress. HEENT: No icterus. Oropharynx has no visible lesions. NECK: Supple without adenopathy. LUNGS: Diminished breath sounds. HEART: Regular rate and rhythm without murmurs, rubs or gallops. : Scrotal swelling has decreased. Les erythematous. EXTREMITIES: No clubbing, cyanosis or edema. SKIN: No rash. NEUROLOGIC: No gross focal findings. IMPRESSION 1. Bacteremia. Staph coag negative and Citrobacter. 2. Scrotal cellulitis severe. very slow to respond. Post abscess drainage. 3. Leukocytosis secondary to infection. RECOMMENDATIONS 1. Continue vancomycin. 2. Continue Levaquin. 3. Send culture of wound today. should have been sent yesterday upon drainage. Anticipate IV antibiotics through the weekend. Austin Heaton MD Dec 28, 2016 11:48
--- NOTE | 2016-12-28 11:52 | PD.ONC.PN ---
Subjective Subjective Remarks Afebrile overnight. Patient resting in bed. States he slept better last night with Atarax. Unsure if his arm has had improvement. Objective Data Date Time Temp Pulse Resp B/P Pulse Ox O2 Delivery O2 Flow Rate FiO2 12/28/16 10:15 18 12/28/16 08:00 98.3 72 17 93/49 98 12/28/16 00:00 98.9 77 20 114/58 98 12/27/16 20:00 98.3 69 20 139/65 97 12/27/16 16:00 97.5 72 19 129/63 95 12/27/16 12:00 96.9 70 20 128/62 95 Result Diagram: 12/25/16 0511 12/28/16 0507 Laboratory Results Laboratory Tests Test 12/28/16 12/28/16 05:07 05:30 Creatinine 0.95 MG/DL Estimat Glomerular Filtration 84 ML/MIN Rate Vancomycin Level Trough 20.6 MCG/ML Administered Medications Medications (Trade) Dose Ordered Sig/Sagrario Route PRN Reason Start Time Stop Time Status Last Admin Dose Admin Acetaminophen (Tylenol) 650 mg Q6H PRN PO PAIN SCALE 1 TO 2 12/16/16 11:15 12/23/16 18:02 Oxycodone HCl (Roxicodone) 10 mg Q4H PRN PO PAIN SCALE 6 TO 10 12/16/16 11:15 12/21/16 01:08 Oxycodone/ Acetaminophen (Percocet 5-325 Mg) 1 tab Q6H PRN PO PAIN SCALE 3 TO 5 12/16/16 11:15 12/16/16 12:18 Sennosides (Senokot) 17.2 mg Q12H PO 12/16/16 12:00 12/26/16 21:49 Famotidine (Pepcid) 20 mg BID PO 12/17/16 00:45 12/28/16 09:15 Acetaminophen (Tylenol) 650 mg Q4H PRN PO Temp > 100.4 12/17/16 11:00 12/20/16 00:17 Guaifenesin/ Dextromethorphan (Robitussin Dm 200-20 Mg/10 ml Liq) 10 ml Q4H PRN PO congested cough 12/19/16 00:15 12/19/16 21:45 Guaifenesin (Mucinex Er) 600 mg BID PO 12/19/16 11:30 12/28/16 09:15 Levofloxacin (Levaquin) 750 mg DAILY PO 12/20/16 15:00 12/28/16 09:15 Multi-Ingredient Ointment (Eucerin Cream) 1 applic Q6H PRN TOPICAL dryness 12/21/16 11:15 12/21/16 16:18 Sodium Chloride (NS Flush) See Protocol DAILY IV FLUSH 12/27/16 09:00 12/28/16 09:16 Heparin Sodium (Porcine) (Heparin Central Flush) See Protocol DAILY IV FLUSH 12/27/16 09:00 12/28/16 09:16 Ibuprofen (Advil) 200 mg Q12HR PO 12/26/16 22:45 12/29/16 22:44 12/28/16 09:15 Enoxaparin Sodium (Lovenox Inj) 40 mg Q12HR SQ 12/27/16 21:00 12/28/16 09:16 Divalproex Sodium (Depakote Er) 2,000 mg HS PO 12/27/16 21:00 12/27/16 20:58 Hydroxyzine HCl (Atarax) 100 mg HS PO 12/27/16 21:00 12/27/16 20:58 Objective Remarks GENERAL: Middle aged male supine in bed in dark room. SKIN: Warm and dry. HEAD: Normocephalic. EYES: No scleral icterus. No injection or drainage. NECK: Supple, trachea midline. CARDIOVASCULAR: Regular rate and rhythm RESPIRATORY: Breath sounds equal bilaterally. No accessory muscle use. GASTROINTESTINAL: Abdomen soft, non-tender, nondistended. EXTREMITIES: No cyanosis. RUE with improvement, palpable cord diminished in size. NEUROLOGICAL: awake and alert, normal speech. Assessment/Plan Problem List: (1) Superficial venous thrombosis of arm Status: Acute Plan: U/S--> showed a thrombus within the cephalic vein in the forearm. --peripheral IV insertion likely precipitated a superficial vein thromboses. --currently on motrin --if this is ineffective will increase to Lovenox BID Assessment 51y/o male admitted with scrotal cellulitis abscess, hematology consulted for thromboses of the right forearm. h/o Anxiety depression PTSD COPD Alcohol abuse Tobacco abuse Scrotal cellulitis Right forearm superficial vein thromboses/phlebitis. Plan 1.would Lovenox to 40mg SQ BID during hospitalization 2. monitor CBC 3. hematology will sign off. please call or reconsult if needed. Jacque Lowe Dec 28, 2016 11:52
[2016-12-28 12:00] VITALS: BP 100/55; PULSE 73; RESP 17; TEMP 97.1; O2SAT 100
[2016-12-28] MEDS: SENNOSIDES 8.6 MG TAB PO SCH ×4 (12:00→23:11)
--- NOTE | 2016-12-28 12:46 | HHI.PR ---
Subjective Remarks The patient was concerned about going back to his hotel with antibiotic injections. He says he still has swelling in his testicles. He was requesting pain medications. He said he was breathing well. Discussed with nursing. Objective Vitals Vital Signs Date Time Temp Pulse Resp B/P Pulse Ox O2 Delivery O2 Flow Rate FiO2 12/28/16 12:00 97.1 73 17 100/55 100 12/28/16 10:15 18 12/28/16 08:00 98.3 72 17 93/49 98 12/28/16 00:00 98.9 77 20 114/58 98 12/27/16 20:00 98.3 69 20 139/65 97 12/27/16 16:00 97.5 72 19 129/63 95 I/O 12/27/16 12/27/16 12/27/16 12/28/16 12/28/16 12/28/16 06:59 14:59 22:59 06:59 14:59 22:59 Intake Total 480 ml 1240 ml 510 ml 420 ml Output Total 1200 ml 120 ml Balance 480 ml 40 ml 510 ml 300 ml Intake Oral 480 ml 1240 ml 420 ml IV Total 510 ml 0 ml Output Urine Total 1200 ml 120 ml # Voids 2 2 # Bowel Movements 0 0 1 Result Diagram: 12/25/16 0511 12/28/16 0507 Imaging Last Impressions Upper Extremity Ultrasound 12/26/16 0000 Signed Impressions: Service Date/Time: Monday, December 26, 2016 12:26 - CONCLUSION: There is thrombus within the cephalic vein. Francine Solano MD Scrotum Ultrasound 12/26/16 0000 Signed Impressions: Service Date/Time: Monday, December 26, 2016 19:41 - CONCLUSION: Significant scrotal edema with minimal complex fluid on the left. There is good flow to both testicles. Charles Galvez MD FACR Chest X-Ray 12/26/16 0000 Signed Impressions: Service Date/Time: Monday, December 26, 2016 18:49 - CONCLUSION: PICC line in good position. Charles Galvez MD FACR Objective Remarks GENERAL: NAD SKIN: Warm and dry. HEAD: Normocephalic. EYES: No scleral icterus. No injection or drainage. NECK: Supple, trachea midline. No JVD or lymphadenopathy. CARDIOVASCULAR: Regular rate and rhythm without murmurs, gallops, or rubs. RESPIRATORY: Breath sounds equal bilaterally. No accessory muscle use. GASTROINTESTINAL: Abdomen soft, non-tender, nondistended. MUSCULOSKELETAL: No cyanosis, or edema. RUE with induration at previous IV access site : scrotum with swelling BACK: Nontender without obvious deformity. No CVA tenderness. PSYCH: Slightly flattened affect. Procedures I&D Medications and IVs Current Medications Medications (Trade) Dose Ordered Sig/Sagrario Route Start Time Stop Time Status Last Admin (Vancomycin Consult Pharmacy) 0 ml @ 0 mls/hr UNSCH PRN OTHER 12/16/16 11:15 (Tylenol) 650 mg Q6H PRN PO 12/16/16 11:15 12/23/16 18:02 (Roxicodone) 10 mg Q4H PRN PO 12/16/16 11:15 12/21/16 01:08 (Percocet 5-325 Mg) 1 tab Q6H PRN PO 12/16/16 11:15 12/16/16 12:18 (Morphine Inj) 4 mg Q3H PRN IV 12/16/16 11:15 12/28/16 12:17 (Narcan Inj) 0.4 mg UNSCH PRN IV 12/16/16 11:15 (Milk Of Magnesia Liq) 30 ml Q12H PRN PO 12/16/16 11:15 (Senokot) 17.2 mg Q12H PO 12/16/16 12:00 12/28/16 12:17 (Pepcid) 20 mg BID PO 12/17/16 00:45 12/28/16 09:15 (Tylenol) 650 mg Q4H PRN PO 12/17/16 11:00 12/20/16 00:17 (Zofran Inj) 4 mg Q6H PRN IV 12/17/16 11:00 (Tran-Colace) 1 tab BID PRN PO 12/17/16 11:00 (Robitussin Dm 200-20 Mg/10 ml Liq) 10 ml Q4H PRN PO 12/19/16 00:15 12/19/16 21:45 (Mucinex Er) 600 mg BID PO 12/19/16 11:30 12/28/16 09:15 (Levaquin) 750 mg DAILY PO 12/20/16 15:00 12/28/16 09:15 (Eucerin Cream) 1 applic Q6H PRN TOPICAL 12/21/16 11:15 12/21/16 16:18 (NS Flush) See Protocol DAILY IV FLUSH 12/27/16 09:00 12/28/16 09:16 (NS Flush) See Protocol UNSCH PRN IV FLUSH 12/26/16 20:45 (Heparin Central Flush) See Protocol DAILY IV FLUSH 12/27/16 09:00 12/28/16 09:16 (Heparin Central Flush) See Protocol UNSCH PRN IV FLUSH 12/26/16 20:45 (NS Flush) UNSCH PRN IV FLUSH 12/26/16 20:45 (Advil) 200 mg Q12HR PO 12/26/16 22:45 12/29/16 22:44 12/28/16 09:15 (Lovenox Inj) 40 mg Q12HR SQ 12/27/16 21:00 12/28/16 09:16 (Depakote Er) 2,000 mg HS PO 12/27/16 21:00 12/27/16 20:58 Hydroxyzine HCl 100 mg 100 mg HS PO 12/27/16 21:00 12/27/16 20:58 (Vancomycin Inj/ NS 500 ml Inj) 520 ml @ 260 mls/hr Q12H IV 12/28/16 22:00 Miscellaneous Information SPECIFIC LAB TO BE XUAN... ONCE ONCE .XX 12/30/16 09:45 12/30/16 09:46 (Desyrel) 100 mg HS PO 12/28/16 21:00 UNV A/P Problem List: (1) Bacteremia due to Gram-positive bacteria ICD Code: R78.81 Status: Acute (2) Bacteremia due to Gram-negative bacteria ICD Code: R78.81 Status: Acute (3) Sepsis affecting skin ICD Code: A41.9 Status: Acute (4) Cellulitis of scrotum ICD Code: N49.2 Status: Acute (5) COPD (chronic obstructive pulmonary disease) ICD Code: J44.9 Status: Chronic (6) Morbid obesity ICD Code: E66.01 Status: Chronic (7) Tobacco abuse ICD Code: Z72.0 Status: Chronic (8) Superficial venous thrombosis of arm ICD Code: I82.619 Status: Acute Assessment and Plan Bacteremia/ Sepsis S/t scrotal abscess. Coag negative staph and Citrobacter. Repeat blood culture NGTD. Appreciate input from infectious disease specialist - Continue with IV vancomycin and Levaquin per ID. Scrotal cellulitis/ abscess Appreciate input from urology. Repeat scrotal ultrasound 12/18/16 noted. S/p I& D per urology 12/27. - Currently on IV antibiotics, parenteral pain medications. - Elevate scrotum. - follow culture data. PTSD/ Depression/ Mood disorder Mood stable. - continue Depakote. Tobacco abuse Pt was counseled. - Continue nicotine patch. Supervision venous thrombosis of right upper extremity Appreciate input from hematology. - Continue with NSAID, ice pack. DVT prophylaxis: Lovenox Discharge Planning Awaiting improvement Carlos Alberto Nunn DO Dec 28, 2016 12:46
--- NOTE | 2016-12-28 12:52 | PD.PSY.CON ---
Provisional Diagnosis Admission Date Dec 16, 2016 at 11:10 Florence I. Adjustment disorder with depressed mood, history of PTSD Florence II. Deferred Florence III. Scrotal information, COPD, seizure Florence IV. Poor family support Florence V. 57 History of Present Illness Service Psychiatry Consult Requested By Primary Care Physician Issa Perez M.D. HPI The patient is a 51-year-old man, domiciled alone, single, unemployed , supported by [facility], with significant history of PTSD, anxiety, depression, 3 previous psychiatric hospitalizations, active outpatient care in [facility], medical history of seizures and COPD, was hospitalized with scrotal abscess and scrotal cellulitis. Consulted to psychiatry due to symptoms of depression. Patient seemed to live for psychiatric evaluation, cooperative, a little bit irritable. Patient says that he is surprised to see a psychiatrist "because I'm not here for psychiatric reasons". He says that he has morning a valid reason to be upset and depressed. He says that he has been in the hospital for a long time now "with very poor outcomes". He says that primary team has a very poor communication with him, and he doesn't really know what is going on with him. He also said that he has been sleeping poorly at night. But he denies hopelessness, he denies helplessness, denies anhedonia, he denies decreased self -esteem, he denies suicidal and homicidal ideation. Patient denies flashbacks, denies nightmares, denies hypervigilance. He denies visual and auditory hallucinations. She is oriented 3, without any fluctuation of consciousness or attention deficit. Patient reports no alcohol and no drugs. Review of Systems Constitutional: DENIES: Diaphoretic episodes, Fatigue, Fever, Weight gain, Weight loss, Chills, Dizziness, Change in appetite, Night Sweats Endocrine: DENIES: Heat/cold intolerance, Polydipsia, Polyuria, Polyphagia Eyes: DENIES: Blurred vision, Diplopia, Eye inflammation, Eye pain, Vision loss , Photosensitivity, Double Vision Ears, nose, mouth, throat: DENIES: Tinnitus, Hearing loss, Vertigo, Nasal discharge, Oral lesions, Throat pain, Hoarseness, Ear Pain, Running Nose, Epistaxis, Sinus Pain, Toothache, Odynophagia Respiratory: DENIES: Apneas, Cough, Snoring, Wheezing, Hemoptysis, Sputum production, Shortness of breath Cardiovascular: DENIES: Chest pain, Palpitations, Syncope, Dyspnea on Exertion , PND, Lower Extremity Edema, Orthopnea, Claudication Gastrointestinal: DENIES: Abdominal pain, Black stools, Bloody stools, Constipation, Diarrhea, Nausea, Vomiting, Difficulty Swallowing, Anorexia Genitourinary: COMPLAINS OF: Testicular Swelling Musculoskeletal: DENIES: Joint pain, Muscle aches, Stiffness, Joint Swelling, Back pain, Neck pain Integumentary: DENIES: Abnormal pigmentation, Nail changes, Pruritus, Rash Hematologic/lymphatic: DENIES: Bruising, Lymphadenopathy Immunologic/allergic: DENIES: Eczema, Urticaria Neurologic: DENIES: Abnormal gait, Headache, Localized weakness, Paresthesias, Seizures, Speech Problems, Tremor, Poor Balance Psychiatric: COMPLAINS OF: Depression, DENIES: Anxiety, Confusion, Mood changes, Hallucinations, Agitation, Suicidal Ideation, Homicidal Ideation, Delusions Past Family Social History Coded Allergies: No Known Allergies (Verified , 12/16/15) Reported Medications Divalproex ER 500 Mg Tab2,000 Mg PO HS #30 TAB Ref 0 12/27/16 Hydroxyzine HCl 50 Mg [id number] Mg PO HS Ref 0 12/27/16 [sleep med] No Conflict Check 12/16/[address] (Depakote DR)250 Mg [id number] Mg PO HS #60 TAB Ref 0 12/16/16 Current Medications Medications (Trade) Dose Ordered Sig/Sagrario Route Start Time Stop Time Status Last Admin (Vancomycin Consult Pharmacy) 0 ml @ 0 mls/hr UNSCH PRN OTHER 12/16/16 11:15 (Tylenol) 650 mg Q6H PRN PO 12/16/16 11:15 12/23/16 18:02 (Roxicodone) 10 mg Q4H PRN PO 12/16/16 11:15 12/21/16 01:08 (Percocet 5-325 Mg) 1 tab Q6H PRN PO 12/16/16 11:15 12/16/16 12:18 (Morphine Inj) 4 mg Q3H PRN IV 12/16/16 11:15 12/28/16 12:17 (Narcan Inj) 0.4 mg UNSCH PRN IV 12/16/16 11:15 (Milk Of Magnesia Liq) 30 ml Q12H PRN PO 12/16/16 11:15 (Senokot) 17.2 mg Q12H PO 12/16/16 12:00 12/28/16 12:17 (Pepcid) 20 mg BID PO 12/17/16 00:45 12/28/16 09:15 (Tylenol) 650 mg Q4H PRN PO 12/17/16 11:00 12/20/16 00:17 (Zofran Inj) 4 mg Q6H PRN IV 12/17/16 11:00 (Tran-Colace) 1 tab BID PRN PO 12/17/16 11:00 (Robitussin Dm 200-20 Mg/10 ml Liq) 10 ml Q4H PRN PO 12/19/16 00:15 12/19/16 21:45 (Mucinex Er) 600 mg BID PO 12/19/16 11:30 12/28/16 09:15 (Levaquin) 750 mg DAILY PO 12/20/16 15:00 12/28/16 09:15 (Eucerin Cream) 1 applic Q6H PRN TOPICAL 12/21/16 11:15 12/21/16 16:18 (NS Flush) See Protocol DAILY IV FLUSH 12/27/16 09:00 12/28/16 09:16 (NS Flush) See Protocol UNSCH PRN IV FLUSH 12/26/16 20:45 (Heparin Central Flush) See Protocol DAILY IV FLUSH 12/27/16 09:00 12/28/16 09:16 (Heparin Central Flush) See Protocol UNSCH PRN IV FLUSH 12/26/16 20:45 (NS Flush) UNSCH PRN IV FLUSH 12/26/16 20:45 (Advil) 200 mg Q12HR PO 12/26/16 22:45 12/29/16 22:44 12/28/16 09:15 (Lovenox Inj) 40 mg Q12HR SQ 12/27/16 21:00 12/28/16 09:16 (Depakote Er) 2,000 mg HS PO 12/27/16 21:00 12/27/16 20:58 Hydroxyzine HCl 100 mg 100 mg HS PO 12/27/16 21:00 12/27/16 20:58 (Vancomycin Inj/ NS 500 ml Inj) 520 ml @ 260 mls/hr Q12H IV 12/28/16 22:00 Miscellaneous Information SPECIFIC LAB TO BE XUAN... ONCE ONCE .XX 12/30/16 09:45 12/30/16 09:46 (Desyrel) 100 mg HS PO 12/28/16 21:00 UNV Family History He denies family psychiatric history Social History Patient was born and raised in [facility], Single, unemployed, supported by [facility], his highest level of education is ninth grade Patient's Strengths (min. 2) Verbal communication, good insight Physical Exam Physical examination patient does not present any tremors, no EPS, no gait disturbances, psychomotor retardation or agitation, Vital Signs Vital Signs Date Time Temp Pulse Resp B/P Pulse Ox O2 Delivery O2 Flow Rate FiO2 12/28/16 12:00 97.1 73 17 100/55 100 I/O 12/27/16 12/27/16 12/27/16 07:59 15:59 23:59 Intake Total 720 ml 1000 ml 930 ml Output Total 1200 ml Balance 720 ml -200 ml 930 ml Lab Results Result Diagram: 12/25/16 0511 12/26/16 0524 Imaging Last Impressions Upper Extremity Ultrasound 12/26/16 0000 Signed Impressions: Service Date/Time: Monday, December 26, 2016 12:26 - CONCLUSION: There is thrombus within the cephalic vein. Francine Solano MD Scrotum Ultrasound 12/26/16 0000 Signed Impressions: Service Date/Time: Monday, December 26, 2016 19:41 - CONCLUSION: Significant scrotal edema with minimal complex fluid on the left. There is good flow to both testicles. Charles Galvez MD FACR Chest X-Ray 12/26/16 0000 Signed Impressions: Service Date/Time: Monday, December 26, 2016 18:49 - CONCLUSION: PICC line in good position. Charles Galvez MD FACR Mental Status Examination Appearance Overweight man, age appearing, [facility], a little bit irritable, but cooperative Speech: Unremarkable Orientation: x3 Memory: Unremarkable Thought Process: Logical Thought Content: Unremarkable Language Sentences structure, grammar and naming is appropriate Fund of Knowledge Adequate for level of education Hallucination Type: None Suicidal Ideation: No Previous Suicide Attempts: Yes Homicidal Ideation: No Previous Homicide Attempts: No Judgment: WNL Affect: Irritable Mood: Appropriate Motor Activity: Normal gait Assessment & Plan Problem List: (1) Adjustment disorder with depressed mood Assessment & Plan: The patient is a 51-year-old man, domiciled alone , single, unemployed, supported by [facility], with significant history of PTSD, anxiety, depression, 3 previous psychiatric hospitalizations, active outpatient care in [facility], medical history of seizures and COPD, was hospitalized with scrotal abscess and scrotal cellulitis. Patient reports symptoms of depression and anxiety, as well as insomnia related with current medical situation And the length of hospitalization. There is no acute symptomatology of PTSD active at this moment. He denies suicidal and homicidal ideation, he denies visual and auditory hallucinations. Will order trazodone 100 mg to help with sleep and depression. Will order a Depakote level. Extensive support, motivation psycho education provided. We'll follow-up. ICD Code: F43.21 Assessment & Plan Estimated LOS: Rory Garcia MD Dec 28, 2016 12:52
[2016-12-28 16:00] VITALS: BP 90/60; PULSE 70; RESP 17; TEMP 98.5; O2SAT 95
[2016-12-28 20:00] VITALS: BP 112/70; PULSE 83; RESP 20; TEMP 97.8; O2SAT 98
[2016-12-28] MEDS: hydrOXYzine HCL 50 MG TAB PO SCH (21:00)
[2016-12-28] MEDS: traZODone HCL 100 MG TAB PO SCH (21:00)
[2016-12-28] MEDS: DIVALPROEX SODIUM E.R. 500 MG TAB PO SCH (21:02)
[2016-12-28] MEDS: VANCOMYCIN INJ 2,000 MG in SODIUM CHLORID 0.9% 500 ML INJ 500 ML IV SCH (21:02)
[2016-12-29] VITALS: BP 111/59; PULSE 79; RESP 20; TEMP 99.8; O2SAT 98
[2016-12-29] MEDS: SODIUM CHLORIDE 0.9% FLUSH 10 ML FLUSH IV FLUSH SCH (07:51)
[2016-12-29] MEDS: IBUPROFEN 200 MG TAB PO SCH ×2 (07:52→21:44)
[2016-12-29] MEDS: LEVOFLOXACIN 750 MG TAB PO SCH (07:52)
[2016-12-29] MEDS: guaiFENesin E.R. 600 MG TAB PO SCH ×2 (07:52→21:43)
[2016-12-29] MEDS: FAMOTIDINE 20 MG TAB PO SCH ×2 (07:52→21:44)
[2016-12-29] MEDS: ENOXAPARIN SODIUM 40 MG/0.4 ML SYRINGE SQ SCH ×2 (07:53→21:00)
[2016-12-29 08:00] VITALS: BP 129/78; PULSE 63; RESP 16; TEMP 95.8; O2SAT 98
[2016-12-29] MEDS: VANCOMYCIN INJ 2,000 MG in SODIUM CHLORID 0.9% 500 ML INJ 500 ML IV SCH ×2 (10:06→21:45)
[2016-12-29 12:00] VITALS: BP 119/58; PULSE 72; RESP 20; TEMP 95.8; O2SAT 96
[2016-12-29] MEDS: SENNOSIDES 8.6 MG TAB PO SCH (12:33)
[2016-12-29] MEDS: oxyCODONE/ACETAMINOPHEN 5 MG/325 MG TAB PO PRN (12:33)
--- NOTE | 2016-12-29 15:21 | HHI.PR ---
Subjective Remarks The patient said that he believes his scrotal swelling is decreased. He then went on to go about 3 interventions he is working on including a special kind of airplane that propels itself like a balloon which has had its air let out, a fish tank the size of a football field in a desert with a dome over it that reaccumulates the evaporating water, and finally a self running generator which could work on the [place] or in [place] and sustain a city. He had no acute complaints. Objective Vitals Vital Signs Date Time Temp Pulse Resp B/P Pulse Ox O2 Delivery O2 Flow Rate FiO2 12/29/16 13:33 18 12/29/16 12:00 95.8 72 20 119/58 96 12/29/16 08:52 18 12/29/16 08:00 95.8 63 16 129/78 98 12/29/16 00:00 99.8 79 20 111/59 98 12/28/16 20:00 97.8 83 20 112/70 98 12/28/16 16:00 98.5 70 17 90/60 95 I/O 12/28/16 12/28/16 12/28/16 12/29/16 12/29/16 12/29/16 07:00 15:00 23:00 07:00 15:00 23:00 Intake Total 0 ml 615 ml 1220 ml 480 ml 504 ml Output Total 120 ml Balance -120 ml 615 ml 1220 ml 480 ml 504 ml Intake Oral 615 ml 720 ml 480 ml IV Total 0 ml 500 ml 504 ml Output Urine Total 120 ml # Voids 5 6 3 # Bowel Movements 1 0 0 Result Diagram: 12/25/16 0511 12/28/16 0507 Imaging Last Impressions Upper Extremity Ultrasound 12/26/16 0000 Signed Impressions: Service Date/Time: Monday, December 26, 2016 12:26 - CONCLUSION: There is thrombus within the cephalic vein. Francine Solano MD Scrotum Ultrasound 12/26/16 0000 Signed Impressions: Service Date/Time: Monday, December 26, 2016 19:41 - CONCLUSION: Significant scrotal edema with minimal complex fluid on the left. There is good flow to both testicles. Charles Galvez MD FACR Chest X-Ray 12/26/16 0000 Signed Impressions: Service Date/Time: Monday, December 26, 2016 18:49 - CONCLUSION: PICC line in good position. Charles Galvez MD FACR Objective Remarks GENERAL: NAD SKIN: Warm and dry. HEAD: Normocephalic. EYES: No scleral icterus. No injection or drainage. NECK: Supple, trachea midline. No JVD or lymphadenopathy. CARDIOVASCULAR: Regular rate and rhythm without murmurs, gallops, or rubs. RESPIRATORY: Breath sounds equal bilaterally. No accessory muscle use. GASTROINTESTINAL: Abdomen soft, non-tender, nondistended. MUSCULOSKELETAL: No cyanosis, or edema. RUE with induration at previous IV access site : scrotum with swelling, some drainage. BACK: Nontender without obvious deformity. No CVA tenderness. PSYCH: Slightly flattened affect. Procedures I&D Medications and IVs Current Medications Medications (Trade) Dose Ordered Sig/Sagrario Route Start Time Stop Time Status Last Admin (Vancomycin Consult Pharmacy) 0 ml @ 0 mls/hr UNSCH PRN OTHER 12/16/16 11:15 (Tylenol) 650 mg Q6H PRN PO 12/16/16 11:15 12/23/16 18:02 (Roxicodone) 10 mg Q4H PRN PO 12/16/16 11:15 12/21/16 01:08 (Percocet 5-325 Mg) 1 tab Q6H PRN PO 12/16/16 11:15 12/29/16 12:33 (Morphine Inj) 4 mg Q3H PRN IV 12/16/16 11:15 12/28/16 12:17 (Narcan Inj) 0.4 mg UNSCH PRN IV 12/16/16 11:15 (Milk Of Magnesia Liq) 30 ml Q12H PRN PO 12/16/16 11:15 (Senokot) 17.2 mg Q12H PO 12/16/16 12:00 12/29/16 12:33 (Pepcid) 20 mg BID PO 12/17/16 00:45 12/29/16 07:52 (Tylenol) 650 mg Q4H PRN PO 12/17/16 11:00 12/20/16 00:17 (Zofran Inj) 4 mg Q6H PRN IV 12/17/16 11:00 (Tran-Colace) 1 tab BID PRN PO 12/17/16 11:00 (Robitussin Dm 200-20 Mg/10 ml Liq) 10 ml Q4H PRN PO 12/19/16 00:15 12/19/16 21:45 (Mucinex Er) 600 mg BID PO 12/19/16 11:30 12/29/16 07:52 (Levaquin) 750 mg DAILY PO 12/20/16 15:00 12/29/16 07:52 (Eucerin Cream) 1 applic Q6H PRN TOPICAL 12/21/16 11:15 12/21/16 16:18 (NS Flush) See Protocol DAILY IV FLUSH 12/27/16 09:00 12/29/16 07:51 (NS Flush) See Protocol UNSCH PRN IV FLUSH 12/26/16 20:45 (Heparin Central Flush) See Protocol DAILY IV FLUSH 12/27/16 09:00 12/29/16 07:51 (Heparin Central Flush) See Protocol UNSCH PRN IV FLUSH 12/26/16 20:45 (NS Flush) UNSCH PRN IV FLUSH 12/26/16 20:45 (Advil) 200 mg Q12HR PO 12/26/16 22:45 12/29/16 22:44 12/29/16 07:52 (Lovenox Inj) 40 mg Q12HR SQ 12/27/16 21:00 12/29/16 07:53 (Depakote Er) 2,000 mg HS PO 12/27/16 21:00 12/28/16 21:02 Hydroxyzine HCl 100 mg 100 mg HS PO 12/27/16 21:00 12/28/16 21:00 (Vancomycin Inj/ NS 500 ml Inj) 520 ml @ 260 mls/hr Q12H IV 12/28/16 22:00 12/29/16 10:06 Miscellaneous Information SPECIFIC LAB TO BE XUAN... ONCE ONCE .XX 12/30/16 09:45 12/30/16 09:46 (Desyrel) 100 mg HS PO 12/28/16 21:00 A/P Problem List: (1) Bacteremia due to Gram-positive bacteria ICD Code: R78.81 Status: Acute (2) Bacteremia due to Gram-negative bacteria ICD Code: R78.81 Status: Acute (3) Sepsis affecting skin ICD Code: A41.9 Status: Acute (4) Cellulitis of scrotum ICD Code: N49.2 Status: Acute (5) COPD (chronic obstructive pulmonary disease) ICD Code: J44.9 Status: Chronic (6) Morbid obesity ICD Code: E66.01 Status: Chronic (7) Tobacco abuse ICD Code: Z72.0 Status: Chronic (8) Superficial venous thrombosis of arm ICD Code: I82.619 Status: Acute Assessment and Plan Bacteremia/ Sepsis S/t scrotal abscess. Coag negative staph and Citrobacter. Repeat blood culture NGTD. Appreciate input from infectious disease specialist - Continue with IV vancomycin and Levaquin per ID. Scrotal cellulitis/ abscess Appreciate input from urology. Repeat scrotal ultrasound 12/18/16 noted. S/p I& D per urology 12/27. Improving. - Currently on IV vancomycin and PO Levaquin. - parenteral pain medications as needed. - Elevate scrotum. - follow culture data. PTSD/ Depression/ Mood disorder Mood stable. Appreciate psych consult. - continue Depakote. - trazodone added by psych. Tobacco abuse Pt was counseled. - Continue nicotine patch. Supervision venous thrombosis of right upper extremity Appreciate input from hematology. - Continue with NSAID, ice pack. DVT prophylaxis: Lovenox Discharge Planning Awaiting improvement Carlos Alberto Nunn DO Dec 29, 2016 15:21
[2016-12-29 16:00] VITALS: BP 119/56; PULSE 72; RESP 17; TEMP 96.8; O2SAT 96
[2016-12-29 20:00] VITALS: BP 115/61; PULSE 90; RESP 20; TEMP 98.2; O2SAT 96
[2016-12-29] MEDS: traZODone HCL 100 MG TAB PO SCH (21:43)
[2016-12-29] MEDS: DIVALPROEX SODIUM E.R. 500 MG TAB PO SCH (21:44)
[2016-12-29] MEDS: hydrOXYzine HCL 50 MG TAB PO SCH (21:44)
[2016-12-30 05:44] LABS: HEMATOCRIT 35.7 % (39.0-51.0); MEAN CELL VOLUME 90.9 FL (80.0-100.0); MEAN CORPUSCULAR HEMOGLOBIN 30.1 PG (27.0-34.0); MEAN CORPUSCULAR HGB CONC 33.1 % (32.0-36.0); PLATELET COUNT 268 TH/MM3 (150-450); RED BLOOD COUNT 3.93 MIL/MM3 (4.50-5.90); RED CELL DISTRIBUTION WIDTH 14.7 % (11.6-17.2); REVIEW FLAG FINAL; WHITE BLOOD COUNT 4.1 TH/MM3 (4.0-11.0)
[2016-12-30 08:00] VITALS: BP 92/43; PULSE 62; RESP 20; TEMP 97.7; O2SAT 95
[2016-12-30] MEDS: guaiFENesin E.R. 600 MG TAB PO SCH ×2 (08:48→20:58)
[2016-12-30] MEDS: LEVOFLOXACIN 750 MG TAB PO SCH (08:48)
[2016-12-30] MEDS: FAMOTIDINE 20 MG TAB PO SCH ×2 (08:48→20:58)
[2016-12-30] MEDS: ENOXAPARIN SODIUM 40 MG/0.4 ML SYRINGE SQ SCH ×2 (08:49→20:58)
[2016-12-30] MEDS: SODIUM CHLORIDE 0.9% FLUSH 10 ML FLUSH IV FLUSH SCH (08:50)
[2016-12-30] MEDS ORDERED: PHARMACY ORDERED LAB ONE (09:45)
[2016-12-30 10:02] LABS: BICARBONATE 29.2 MEQ/L (21.0-32.0); MAGNESIUM 2.2 MG/DL (1.5-2.5); POTASSIUM 3.9 MEQ/L (3.5-5.1)
[2016-12-30 10:04] LABS: VANCOMYCIN TROUGH 17.5 MCG/ML (5.0-10.0)
[2016-12-30] MEDS: VANCOMYCIN INJ 2,000 MG in SODIUM CHLORID 0.9% 500 ML INJ 500 ML IV SCH ×2 (10:09→20:58)
--- NOTE | 2016-12-30 11:05 | HHI.PR ---
Subjective Remarks The patient had questions pertaining to the home health care. He said his scrotal edema improved and that he could see his penis finally. He said he cleaned it out. Pain is controlled. Discussed with nursing at the bedside. He also mentions that he had been smoking for 30+ years and is currently breathing better than he normally does. Objective Vitals Vital Signs Date Time Temp Pulse Resp B/P Pulse Ox O2 Delivery O2 Flow Rate FiO2 12/30/16 08:00 97.7 62 20 92/43 95 12/29/16 20:00 98.2 90 20 115/61 96 12/29/16 16:00 96.8 72 17 119/56 96 12/29/16 13:33 18 12/29/16 12:00 95.8 72 20 119/58 96 I/O 12/29/16 12/29/16 12/29/16 12/30/16 12/30/16 12/30/16 07:00 15:00 23:00 07:00 15:00 23:00 Intake Total 480 ml 1584 ml 360 ml 860 ml Balance 480 ml 1584 ml 360 ml 860 ml Intake Oral 480 ml 1080 ml 360 ml 360 ml IV Total 504 ml 500 ml # Voids 3 12 5 # Bowel Movements 0 1 Result Diagram: 12/30/16 0530 12/30/16 0930 Imaging Last Impressions Upper Extremity Ultrasound 12/26/16 0000 Signed Impressions: Service Date/Time: Monday, December 26, 2016 12:26 - CONCLUSION: There is thrombus within the cephalic vein. Francine Solano MD Scrotum Ultrasound 12/26/16 0000 Signed Impressions: Service Date/Time: Monday, December 26, 2016 19:41 - CONCLUSION: Significant scrotal edema with minimal complex fluid on the left. There is good flow to both testicles. Charles Galvez MD FACR Chest X-Ray 12/26/16 0000 Signed Impressions: Service Date/Time: Monday, December 26, 2016 18:49 - CONCLUSION: PICC line in good position. Charles Galvez MD FACR Objective Remarks GENERAL: Obese male. NAD, resting comfortably. SKIN: Warm and dry. HEAD: Normocephalic. EYES: No scleral icterus. No injection or drainage. NECK: Supple, trachea midline. No JVD or lymphadenopathy. CARDIOVASCULAR: Regular rate and rhythm without murmurs, gallops, or rubs. RESPIRATORY: Breath sounds equal bilaterally. No accessory muscle use. GASTROINTESTINAL: Abdomen soft, non-tender, nondistended. MUSCULOSKELETAL: No cyanosis, or edema. : scrotum with improved swelling, packing in incision noted. BACK: Nontender without obvious deformity. No CVA tenderness. PSYCH: Slightly flattened affect. Procedures I&D Medications and IVs Current Medications Medications (Trade) Dose Ordered Sig/Sagrario Route Start Time Stop Time Status Last Admin (Vancomycin Consult Pharmacy) 0 ml @ 0 mls/hr UNSCH PRN OTHER 12/16/16 11:15 (Tylenol) 650 mg Q6H PRN PO 12/16/16 11:15 12/23/16 18:02 (Roxicodone) 10 mg Q4H PRN PO 12/16/16 11:15 12/21/16 01:08 (Percocet 5-325 Mg) 1 tab Q6H PRN PO 12/16/16 11:15 12/29/16 12:33 (Morphine Inj) 4 mg Q3H PRN IV 12/16/16 11:15 12/28/16 12:17 (Narcan Inj) 0.4 mg UNSCH PRN IV 12/16/16 11:15 (Milk Of Magnesia Liq) 30 ml Q12H PRN PO 12/16/16 11:15 (Senokot) 17.2 mg Q12H PO 12/16/16 12:00 12/29/16 12:33 (Pepcid) 20 mg BID PO 12/17/16 00:45 12/30/16 08:48 (Tylenol) 650 mg Q4H PRN PO 12/17/16 11:00 12/20/16 00:17 (Zofran Inj) 4 mg Q6H PRN IV 12/17/16 11:00 (Tran-Colace) 1 tab BID PRN PO 12/17/16 11:00 (Robitussin Dm 200-20 Mg/10 ml Liq) 10 ml Q4H PRN PO 12/19/16 00:15 12/19/16 21:45 (Mucinex Er) 600 mg BID PO 12/19/16 11:30 12/30/16 08:48 (Levaquin) 750 mg DAILY PO 12/20/16 15:00 12/30/16 08:48 (Eucerin Cream) 1 applic Q6H PRN TOPICAL 12/21/16 11:15 12/21/16 16:18 (NS Flush) See Protocol DAILY IV FLUSH 12/27/16 09:00 12/30/16 08:50 (NS Flush) See Protocol UNSCH PRN IV FLUSH 12/26/16 20:45 (Heparin Central Flush) See Protocol DAILY IV FLUSH 12/27/16 09:00 12/30/16 08:49 (Heparin Central Flush) See Protocol UNSCH PRN IV FLUSH 12/26/16 20:45 (NS Flush) UNSCH PRN IV FLUSH 12/26/16 20:45 (Lovenox Inj) 40 mg Q12HR SQ 12/27/16 21:00 12/30/16 08:49 (Depakote Er) 2,000 mg HS PO 12/27/16 21:00 12/29/16 21:44 Hydroxyzine HCl 100 mg 100 mg HS PO 12/27/16 21:00 12/29/16 21:44 (Vancomycin Inj/ NS 500 ml Inj) 520 ml @ 260 mls/hr Q12H IV 12/28/16 22:00 12/30/16 10:09 (Desyrel) 100 mg HS PO 12/28/16 21:00 12/29/16 21:43 A/P Problem List: (1) Bacteremia due to Gram-positive bacteria ICD Code: R78.81 Status: Acute (2) Bacteremia due to Gram-negative bacteria ICD Code: R78.81 Status: Acute (3) Sepsis affecting skin ICD Code: A41.9 Status: Acute (4) Cellulitis of scrotum ICD Code: N49.2 Status: Acute (5) COPD (chronic obstructive pulmonary disease) ICD Code: J44.9 Status: Chronic (6) Morbid obesity ICD Code: E66.01 Status: Chronic (7) Tobacco abuse ICD Code: Z72.0 Status: Chronic (8) Superficial venous thrombosis of arm ICD Code: I82.619 Status: Acute Assessment and Plan Bacteremia/ Sepsis S/t scrotal abscess. Coag negative staph and Citrobacter. Repeat blood culture NGTD. Appreciate input from infectious disease specialist - Continue with IV vancomycin and Levaquin per ID. Scrotal cellulitis/ abscess Appreciate input from urology. Repeat scrotal ultrasound 12/18/16 noted. S/p I& D per urology 12/27. Improving. Culture growing yeast. - Currently on IV vancomycin and PO Levaquin. Defer yeast treatment to ID. - pain control as needed. - Elevate scrotum. - follow culture data. PTSD/ Depression/ Mood disorder Mood stable. Appreciate psych consult. - continue Depakote. - trazodone added by psych. Tobacco abuse Pt was counseled. - Continue nicotine patch. Supervision venous thrombosis of right upper extremity Appreciate input from hematology. - Continue with NSAID, ice pack. DVT prophylaxis: Lovenox Discharge Planning D/c with [facility] and urology follow-up once cleared by Carlos Alberto Mcgregor DO Dec 30, 2016 11:05
[2016-12-30 12:00] VITALS: BP 112/57; PULSE 70; RESP 20; TEMP 98; O2SAT 96
[2016-12-30] MEDS: SENNOSIDES 8.6 MG TAB PO SCH ×2 (12:21)
[2016-12-30 16:00] VITALS: BP 114/68; PULSE 78; RESP 20; TEMP 98; O2SAT 96
[2016-12-30 20:00] VITALS: BP 112/54; PULSE 109; RESP 19; TEMP 99.4; O2SAT 96
[2016-12-30] MEDS: traZODone HCL 100 MG TAB PO SCH (20:58)
[2016-12-30] MEDS: hydrOXYzine HCL 50 MG TAB PO SCH (20:58)
[2016-12-30] MEDS: DIVALPROEX SODIUM E.R. 500 MG TAB PO SCH (20:58)
[2016-12-31] VITALS: BP 128/88; PULSE 80; RESP 19; TEMP 98.9; O2SAT 97
[2016-12-31 08:00] VITALS: BP_SYST 108; BP_SYST 115; BP_DIAS 62; BP_DIAS 77; PULSE 70; PULSE 98; RESP 20; RESP 24; TEMP 96.2; TEMP 96.4; O2SAT 96; O2SAT 98
[2016-12-31] MEDS: SODIUM CHLORIDE 0.9% FLUSH 10 ML FLUSH IV FLUSH SCH (08:28)
[2016-12-31] MEDS: LEVOFLOXACIN 750 MG TAB PO SCH (08:28)
[2016-12-31] MEDS: FAMOTIDINE 20 MG TAB PO SCH ×2 (08:28→22:13)
[2016-12-31] MEDS: ENOXAPARIN SODIUM 40 MG/0.4 ML SYRINGE SQ SCH ×2 (08:28→22:14)
[2016-12-31] MEDS: guaiFENesin E.R. 600 MG TAB PO SCH ×3 (08:28→22:11)
[2016-12-31] MEDS: VANCOMYCIN INJ 2,000 MG in SODIUM CHLORID 0.9% 500 ML INJ 500 ML IV SCH (10:16)
[2016-12-31 12:00] VITALS: BP 109/56; PULSE 76; RESP 22; TEMP 96.3; O2SAT 93
[2016-12-31] MEDS: SENNOSIDES 8.6 MG TAB PO SCH ×3 (12:29→22:12)
--- NOTE | 2016-12-31 14:05 | HHI.IDPN ---
Note Infectious Disease Note Patient notes pain at scrotum. Had I & D of scrotum 12/27. Wound culture has yeast. Afebrile. Scrotum swelling has decreased. Notes that he has mobile lumpy areas at the skin of the chest. Says that he is able to push it down to the mid abdomen and it stays where he releases it. Thrombus noted at r. cephalic vein. Infiltrated IV site. PAST MEDICAL HISTORY 1. COPD. 2. Post-traumatic stress disorder. 3. Anxiety. ALLERGIES No known drug allergies. ANTIBIOTICS: 1. Vancomycin. 2. Levaquin. OBJECTIVE: Vital Signs Date Time Temp Pulse Resp B/P Pulse Ox O2 Delivery O2 Flow Rate FiO2 12/31/16 12:00 96.3 76 22 109/56 93 12/31/16 08:00 96.4 70 20 108/62 96 12/31/16 00:00 98.9 80 19 128/88 97 12/30/16 20:00 99.4 109 19 112/54 96 12/30/16 16:00 98.0 78 20 114/68 96 12/30/16 14:59 18 12/30/16 12/30/16 12/31/16 14:59 22:59 06:59 Intake Total 1504 ml 240 ml 740 ml Output Total 1200 ml Balance 304 ml 240 ml 740 ml Intake Oral 1000 ml 240 ml 240 ml IV Total 504 ml 500 ml Output Urine Total 1200 ml # Voids 2 2 # Bowel Movements 0 0 1 Laboratory Tests Test 12/30/16 05:30 White Blood Count 4.1 TH/MM3 Red Blood Count 3.93 MIL/MM3 Hemoglobin 11.8 GM/DL Hematocrit 35.7 % Mean Corpuscular Volume 90.9 FL Mean Corpuscular Hemoglobin 30.1 PG Mean Corpuscular Hemoglobin 33.1 % Concent Red Cell Distribution Width 14.7 % Platelet Count 268 TH/MM3 Mean Platelet Volume 7.6 FL Laboratory Tests Test 12/30/16 12/30/16 05:30 09:30 Creatinine 1.04 MG/DL 0.95 MG/DL Estimat Glomerular Filtration 76 ML/MIN 84 ML/MIN Rate Sodium Level 138 MEQ/L Potassium Level 3.9 MEQ/L Chloride Level 103 MEQ/L Carbon Dioxide Level 29.2 MEQ/L Anion Gap 6 MEQ/L Blood Urea Nitrogen 11 MG/DL Random Glucose 90 MG/DL Calcium Level 8.6 MG/DL Magnesium Level 2.2 MG/DL IMAGING: Upper Extremity Ultrasound 12/26/16 0000 Signed Impressions: Service Date/Time: Monday, December 26, 2016 12:26 - CONCLUSION: There is thrombus within the cephalic vein. Francine Solano MD Scrotum Ultrasound 12/18/16 0000 Signed Impressions: Service Date/Time: Sunday, December 18, 2016 12:50 - CONCLUSION: 1. No solid testicular masses. Positive testicular blood flow. Small varicoceles and left hydrocele. 2. Severe scrotal wall edema similar to prior exam. Irving Payne MD Scrotum Ultrasound 12/16/16 0000 Signed Impressions: Service Date/Time: Friday, December 16, 2016 11:53 - CONCLUSION: 1. Extensive scrotal wall thickening and edema. 2. Positive testicular blood flow bilaterally without suspicious solid testicular mass. 3. Complex fluid contiguous with the inferior portion of the left testicle measures 2.6 cm in diameter. Small left-sided epididymal nodule. Small varicoceles bilaterally. Irving Payne MD PHYSICAL EXAMINATION GENERAL: No acute distress. HEENT: No icterus. Oropharynx has no visible lesions. NECK: Supple without adenopathy. CHEST: No erythema. ? lump at the R chest near the sternum. LUNGS: Clear breath sounds. HEART: Regular rate and rhythm without murmurs, rubs or gallops. : Scrotal swelling has decreased. Still has erythematous. EXTREMITIES: No clubbing, cyanosis or edema. SKIN: No rash. NEUROLOGIC: No gross focal findings. IMPRESSION 1. Bacteremia. Staph coag negative and Citrobacter. Treated. 2. Scrotal cellulitis improving post abscess drainage. Culture has yeast. 3. Leukocytosis secondary to infection. RECOMMENDATIONS 1. Stop vancomycin. 2. Continue Levaquin PO x 10 days. 3. PO Fluconazole 200mg daily x 10 days. 4. Follow up with Urology. Okay for discharge from my standpoint. Austin Heaton MD Dec 31, 2016 14:05
--- NOTE | 2016-12-31 14:54 | HHI.DCPOC ---
Discharge Care Plan Diagnosis: (1) Adjustment disorder with depressed mood (2) Superficial venous thrombosis of arm (3) Sepsis affecting skin (4) Bacteremia due to Gram-positive bacteria (5) Bacteremia due to Gram-negative bacteria (6) Morbid obesity (7) Cellulitis of scrotum Goals to Promote Your Health * To prevent worsening of your condition and complications * To maintain your health at the optimal level Directions to Meet Your Goals Take your medications as prescribed Follow your dietary instruction Follow activity as directed Keep your appointments as scheduled Take your immunizations and boosters as scheduled If your symptoms worsen call your PCP, if no PCP go to Urgent Care Center or Emergency Room Smoking is Dangerous to Your Health. Avoid second hand smoke Call the 24-hour hour crisis hotline for domestic abuse at Carlos Alberto Nunn DO Dec 31, 2016 14:54
--- NOTE | 2016-12-31 14:56 | HHI.FF ---
Face to Face Verification Diagnosis: (1) Adjustment disorder with depressed mood (2) Sepsis affecting skin (3) Superficial venous thrombosis of arm (4) Bacteremia due to Gram-positive bacteria (5) Bacteremia due to Gram-negative bacteria (6) Cellulitis of scrotum Physical Therapy Order: Evaluate and Treat Home Health Nursing Order: Medical education Signs/symptoms of disease process Medication education-adverse effect Wound care and dressing changes Nursing assessment with vital signs I have seen patient Audi Shaka Hoang Jr on 12/31/16. My clinical findings support the need for the requested home health care services because: Ltd mobility - disease progression Deconditioned w/ increased weakness Med compliance is questionable Limited ability to care for self Need for psychosocial assistance I certify that my clinical findings support that this patient is homebound because: Impaired cognitive ability/safety Unsafe to leave home unassisted Need for psychosocial assistance Carlos Alberto Nunn DO Dec 31, 2016 14:56
[2016-12-31] MEDS ORDERED: DIFL200T PO (15:03)
[2016-12-31] MEDS ORDERED: LEVA750T9 PO (15:03)
[2016-12-31] MEDS ORDERED: OXYC-392 PO (15:03)
--- NOTE | 2016-12-31 15:09 | HHI.PR ---
Subjective Remarks The pt said he had no money if he didn't get to [facility] by 4PM. He said he would need to be discharged early tomorrow. Otherwise no complaints. Discussed with nursing and case management. Objective Vitals Vital Signs Date Time Temp Pulse Resp B/P Pulse Ox O2 Delivery O2 Flow Rate FiO2 12/31/16 12:00 96.3 76 22 109/56 93 12/31/16 08:00 96.4 70 20 108/62 96 12/31/16 00:00 98.9 80 19 128/88 97 12/30/16 20:00 99.4 109 19 112/54 96 12/30/16 16:00 98.0 78 20 114/68 96 I/O 12/30/16 12/30/16 12/30/16 12/31/16 12/31/16 12/31/16 06:59 14:59 22:59 06:59 14:59 22:59 Intake Total 860 ml 1504 ml 240 ml 740 ml Output Total 1200 ml Balance 860 ml 304 ml 240 ml 740 ml Intake Oral 360 ml 1000 ml 240 ml 240 ml IV Total 500 ml 504 ml 500 ml Output Urine Total 1200 ml # Voids 5 2 2 # Bowel Movements 0 0 1 Result Diagram: 12/30/16 0530 12/30/16 0930 Imaging Last Impressions Upper Extremity Ultrasound 12/26/16 0000 Signed Impressions: Service Date/Time: Monday, December 26, 2016 12:26 - CONCLUSION: There is thrombus within the cephalic vein. Francine Solano MD Scrotum Ultrasound 12/26/16 0000 Signed Impressions: Service Date/Time: Monday, December 26, 2016 19:41 - CONCLUSION: Significant scrotal edema with minimal complex fluid on the left. There is good flow to both testicles. Charles Galvez MD FACR Chest X-Ray 12/26/16 0000 Signed Impressions: Service Date/Time: Monday, December 26, 2016 18:49 - CONCLUSION: PICC line in good position. Charles Galvez MD FACR Objective Remarks GENERAL: Obese male. NAD, resting comfortably. SKIN: Warm and dry. HEAD: Normocephalic. EYES: No scleral icterus. No injection or drainage. NECK: Supple, trachea midline. No JVD or lymphadenopathy. CARDIOVASCULAR: Regular rate and rhythm without murmurs, gallops, or rubs. RESPIRATORY: Breath sounds equal bilaterally. No accessory muscle use. GASTROINTESTINAL: Abdomen soft, non-tender, nondistended. MUSCULOSKELETAL: No cyanosis, or edema. : scrotum with improved swelling, incision appears clean. BACK: Nontender without obvious deformity. No CVA tenderness. PSYCH: Slightly flattened affect. Procedures I&D Medications and IVs Current Medications Medications (Trade) Dose Ordered Sig/Sagraroi Route Start Time Stop Time Status Last Admin (Tylenol) 650 mg Q6H PRN PO 12/16/16 11:15 12/23/16 18:02 (Roxicodone) 10 mg Q4H PRN PO 12/16/16 11:15 12/30/16 13:59 (Percocet 5-325 Mg) 1 tab Q6H PRN PO 12/16/16 11:15 12/29/16 12:33 (Narcan Inj) 0.4 mg UNSCH PRN IV 12/16/16 11:15 (Milk Of Magnesia Liq) 30 ml Q12H PRN PO 12/16/16 11:15 (Senokot) 17.2 mg Q12H PO 12/16/16 12:00 12/31/16 12:29 (Pepcid) 20 mg BID PO 12/17/16 00:45 12/31/16 08:28 (Tylenol) 650 mg Q4H PRN PO 12/17/16 11:00 12/20/16 00:17 (Zofran Inj) 4 mg Q6H PRN IV 12/17/16 11:00 (Tran-Colace) 1 tab BID PRN PO 12/17/16 11:00 (Robitussin Dm 200-20 Mg/10 ml Liq) 10 ml Q4H PRN PO 12/19/16 00:15 12/19/16 21:45 (Mucinex Er) 600 mg BID PO 12/19/16 11:30 12/30/16 20:58 (Levaquin) 750 mg DAILY PO 12/20/16 15:00 12/31/16 08:28 (Eucerin Cream) 1 applic Q6H PRN TOPICAL 12/21/16 11:15 12/21/16 16:18 (NS Flush) See Protocol DAILY IV FLUSH 12/27/16 09:00 12/31/16 08:28 (NS Flush) See Protocol UNSCH PRN IV FLUSH 12/26/16 20:45 (Heparin Central Flush) See Protocol DAILY IV FLUSH 12/27/16 09:00 12/31/16 08:28 (Heparin Central Flush) See Protocol UNSCH PRN IV FLUSH 12/26/16 20:45 (NS Flush) UNSCH PRN IV FLUSH 12/26/16 20:45 (Lovenox Inj) 40 mg Q12HR SQ 12/27/16 21:00 12/31/16 08:28 (Depakote Er) 2,000 mg HS PO 12/27/16 21:00 12/30/16 20:58 (Atarax) 100 mg HS PO 12/27/16 21:00 12/30/16 20:58 (Desyrel) 100 mg HS PO 12/28/16 21:00 12/30/16 20:58 (Diflucan) 200 mg DAILY PO 12/31/16 14:15 A/P Problem List: (1) Bacteremia due to Gram-positive bacteria ICD Code: R78.81 Status: Acute (2) Bacteremia due to Gram-negative bacteria ICD Code: R78.81 Status: Acute (3) Sepsis affecting skin ICD Code: A41.9 Status: Acute (4) Cellulitis of scrotum ICD Code: N49.2 Status: Acute (5) COPD (chronic obstructive pulmonary disease) ICD Code: J44.9 Status: Chronic (6) Morbid obesity ICD Code: E66.01 Status: Chronic (7) Tobacco abuse ICD Code: Z72.0 Status: Chronic (8) Superficial venous thrombosis of arm ICD Code: I82.619 Status: Acute Assessment and Plan Scrotal cellulitis/ abscess Appreciate input from urology. Repeat scrotal ultrasound 12/18/16 noted. S/p I& D per urology 12/27. Improving. Coag negative staph and Citrobacter in blood culture. ID was consulted. Repeat blood cultures with NGTD. Wound culture growing yeast. - Currently on IV vancomycin and PO Levaquin. D/c vancomycin and start fluconazole per ID. - pain control as needed. - Elevate scrotum. - follow culture data. - outpt follow-up with urology. - the pt will have an appt with his PCP 01/01 so that HHC can be arranged. PTSD/ Depression/ Mood disorder Mood stable. Appreciate psych consult. - continue Depakote. - trazodone added by psych. Tobacco abuse Pt was counseled. - Continue nicotine patch. Supervision venous thrombosis of right upper extremity Appreciate input from hematology. - Continue with NSAID, ice pack. DVT prophylaxis: Lovenox Discharge Planning D/c home in AM Carlos Alberto Nunn DO Dec 31, 2016 15:09
[2016-12-31 16:00] VITALS: BP 123/80; PULSE 70; RESP 20; TEMP 95.7; O2SAT 96
[2016-12-31] MEDS: FLUCONAZOLE 200 MG TAB PO SCH (16:18)
[2016-12-31 20:00] VITALS: BP 116/67; PULSE 87; RESP 19; TEMP 96.9; O2SAT 95
[2016-12-31] MEDS: hydrOXYzine HCL 50 MG TAB PO SCH (22:11)
[2016-12-31] MEDS: DIVALPROEX SODIUM E.R. 500 MG TAB PO SCH (22:11)
[2016-12-31] MEDS: traZODone HCL 100 MG TAB PO SCH (22:12)
[2016-12-31] MEDS: ACETAMINOPHEN 325 MG TAB PO PRN (22:13)
[2017-01-01] VITALS: BP 115/55; PULSE 95; RESP 19; TEMP 98.4; O2SAT 98
[2017-01-01 08:00] VITALS: BP 136/71; PULSE 69; RESP 19; TEMP 97.4; O2SAT 95
--- NOTE | 2017-01-01 09:09 | HHI.DS ---
Discharge Summary Admission Date Dec 16, 2016 at 11:10 Discharge Date: Jan 01, 2017 Admitting Diagnosis (1) Bacteremia due to Gram-positive bacteria ICD Code: R78.81 Diagnosis: Principal (2) Bacteremia due to Gram-negative bacteria ICD Code: R78.81 Diagnosis: Principal (3) Sepsis affecting skin ICD Code: A41.9 Diagnosis: Principal (4) Cellulitis of scrotum ICD Code: N49.2 Diagnosis: Principal (5) COPD (chronic obstructive pulmonary disease) ICD Code: J44.9 (6) Morbid obesity ICD Code: E66.01 (7) Tobacco abuse ICD Code: Z72.0 (8) Superficial venous thrombosis of arm ICD Code: I82.619 (9) Abscess of scrotum ICD Code: N49.2 Diagnosis: Principal Procedures I&D Brief History - From Admission This is a 51-year-old male with history of COPD, PTSD, depression, no other significant comorbidities presenting with scrotal pain. In retrospect, the patient has had what he refers as cysts between his scrotum and his rectum/anal verge for the last 10 months. Sometimes there will be a discharge described as yellowish which she would express. He has never seen a doctor or taken any antibiotics for this. However in the last 2 days, he has noticed that the "cysts"are now in his scrotum associated with severe pain, 8/10, scrotal redness , swelling, subjective fever with chills and sweats. There is no scrotal discharge. Patient denies any urinary symptoms including dysuria, frequency, urgency, diarrhea, shortness of breath, cough, nausea, vomiting, chest pain. CBC/BMP: 12/30/16 0530 01/01/17 0457 Significant Findings Laboratory Tests Test 12/30/16 12/30/16 05:30 09:30 Red Blood Count 3.93 MIL/MM3 (4.50-5.90) Hemoglobin 11.8 GM/DL (13.0-17.0) Hematocrit 35.7 % (39.0-51.0) Estimat Glomerular Filtration 76 ML/MIN (>89) 84 ML/MIN (>89) Rate Vancomycin Level Trough 17.5 MCG/ML (5.0-10.0) Imaging Last Impressions Upper Extremity Ultrasound 12/26/16 0000 Signed Impressions: Service Date/Time: Monday, December 26, 2016 12:26 - CONCLUSION: There is thrombus within the cephalic vein. Francine Solano MD Scrotum Ultrasound 12/26/16 0000 Signed Impressions: Service Date/Time: Monday, December 26, 2016 19:41 - CONCLUSION: Significant scrotal edema with minimal complex fluid on the left. There is good flow to both testicles. Charles Galvez MD FACR Chest X-Ray 12/26/16 0000 Signed Impressions: Service Date/Time: Monday, December 26, 2016 18:49 - CONCLUSION: PICC line in good position. Charles Galvez MD FACR PE at Discharge GENERAL: Obese male. NAD, resting comfortably. SKIN: Warm and dry. HEAD: Normocephalic. EYES: No scleral icterus. No injection or drainage. NECK: Supple, trachea midline. No JVD or lymphadenopathy. CARDIOVASCULAR: Regular rate and rhythm without murmurs, gallops, or rubs. RESPIRATORY: Breath sounds equal bilaterally. No accessory muscle use. GASTROINTESTINAL: Abdomen soft, non-tender, nondistended. MUSCULOSKELETAL: No cyanosis, or edema. : scrotum with improved swelling, incision appears clean. BACK: Nontender without obvious deformity. No CVA tenderness. PSYCH: Slightly flattened affect. Pt update on day of discharge The patient was resting comfortably in bed. He was looking forward to going home. He had questions about follow-up and medications. Discussed with nursing. Hospital Course Scrotal cellulitis/ abscess Scrotal ultrasound showed: Significant scrotal edema with minimal complex fluid on the left. Urology was consulted. S/p I&D per urology on 12/27. He had dressings done daily per urology: Change packing material daily with 1/2in plain packing material or kerlex role daily with 4x4 gauze and ABD pads on top. Coag negative staph and Citrobacter grew in the blood cultures. ID was consulted. Repeat blood cultures with NGTD. Wound culture growing yeast. He was continued on IV vancomycin and PO Levaquin. We d/c vancomycin and started fluconazole per cultures. He received pain control as needed. He continued to elevate his scrotum. He will have outpt follow-up with urology. The pt will have an appt with his PCP 01/01 so that HHC can be arranged. Case management assisted with discharge. PTSD/ Depression/ Mood disorder Psych was consulted. He was continued on his medication regimen. Trazodone was added. He will follow up as needed as an outpt. Supervision venous thrombosis of right upper extremity Hematology was consulted who recommended conservative measures. Pt Condition on Discharge: Stable Discharge Disposition: Disch w/ Home Health Serv Discharge Time: > 30 minutes Discharge Instructions DIET: Follow Instructions for: As Tolerated, No Restrictions Activities you can perform: Weight Bearing as Jamee Follow up Referrals: PCP Follow-up - 01/01/17 Psychiatry Adult Urology - 1 Week with Cheikh Hand MD New Medications: Fluconazole (Diflucan) 200 Mg Tab 200 MG PO DAILY Infection #8 TAB Levofloxacin (Levaquin) 750 Mg Tablet 750 MG PO DAILY Infection #8 TAB Oxycodone (Oxycodone) 5 Mg Tab 5 MG PO Q6HR PRN Pain #12 TAB Trazodone (Trazodone) 50 Mg Tab 100 MG PO HS Psych #60 TAB Continued Medications: Divalproex DR (Depakote DR) 250 Mg Tabdr 250 MG PO HS Control Seizures #60 Ref 0 TAB Divalproex ER (Divalproex ER) 500 Mg Tab 2000 MG PO HS Control Seizures #30 Ref 0 TAB Hydroxyzine HCl (Hydroxyzine HCl) 50 Mg Tab 100 MG PO HS Ref 0 TAB ([sleep med]) Carlos Alberto Nunn DO Jan 01, 2017 09:09
[2017-01-01] MEDS ORDERED: TRAZ50TA12 PO (09:28)
[2017-01-01] MEDS: FLUCONAZOLE 200 MG TAB PO SCH (10:31)
[2017-01-01] MEDS: ENOXAPARIN SODIUM 40 MG/0.4 ML SYRINGE SQ SCH (10:32)
[2017-01-01] MEDS: FAMOTIDINE 20 MG TAB PO SCH (10:32)
[2017-01-01] MEDS: guaiFENesin E.R. 600 MG TAB PO SCH (10:32)
[2017-01-01] MEDS: LEVOFLOXACIN 750 MG TAB PO SCH (10:32)
[2017-01-01] MEDS: SODIUM CHLORIDE 0.9% FLUSH 10 ML FLUSH IV FLUSH SCH (10:32)
--- NOTE | 2017-01-01 18:44 | EKG ---
Date Performed: 12/31/2016 Time Performed: 21:45:13 PTAGE: 51 years EKG: Sinus rhythm NORMAL ECG PREVIOUS TRACING : 12/16/2015 14.38 Compared to prior tracing no significant change DOCTOR: Naeem Wiggins Interpretating Date/Time 01/01/2017 18:43:22
== END 2017-01-01 11:56 | disposition home health service (06) | DRG 872 ==
LOC: NEPC 06:22 → NEDA 11:10 → N07A 13:24
PROVIDERS: ADMIT Hospitalist; ATTEND Hospitalist
PROC: 05HB33Z Insertion of Infusion Device into Right Basilic Vein, Percutaneous Approach (ICD-10-PCS; principal; 2016-12-26)
PROC: 0V953ZZ Drainage of Scrotum, Percutaneous Approach (ICD-10-PCS; 2016-12-27)
DX: A41.89 Other specified sepsis (principal); I95.9 Hypotension, unspecified; Z68.42 Body mass index [BMI] 45.0-49.9, adult; I82.611 Acute embolism and thrombosis of superficial veins of right upper extremity; E66.01 Morbid (severe) obesity due to excess calories; N49.2 Inflammatory disorders of scrotum; F43.10 Post-traumatic stress disorder, unspecified; J44.9 Chronic obstructive pulmonary disease, unspecified; F17.210 Nicotine dependence, cigarettes, uncomplicated; F43.21 Adjustment disorder with depressed mood; F10.10 Alcohol abuse, uncomplicated; G47.00 Insomnia, unspecified; B96.89 Other specified bacterial agents as the cause of diseases classified elsewhere; Y90.9 Presence of alcohol in blood, level not specified; Z86.72 Personal history of thrombophlebitis
CPT/HCPCS: 36569; 71010; 76870; 76937; 80048; 80164; 80202; 81001; 82550; 82565; 83036; 83605; 83735; 85007; 85025; 85027; 86403; 87040; 87070; 87077; 87106; 87149; 87186; 87205; 93005; 93971; 93975; 96365; 96367; 96375; J0295; J1642; J1650; J2270; J2405; J2543; J3370; J7030; J7040; J7050